=== PATIENT | female | born 1960 | race Caucasian/White ===

== ENCOUNTER → 2016-11-15 | Outpatient (CLI) | payer MEDICAID ==
[~2016-11-15] MED LIST: ALPR1TAB7; AMLO10TA2; BUDE10.2 IH; DEXL60CA; DEXL60CA PO; ESCI10TA55; HYDR-3729 PO; HYDR-3812 PO; HYDR-3820; HYDR25CA PO; POTA10CA43 PO; QUET100T69; ROPI1TAB2 PO; ROSU10TA24 PO; RT-ALBUINH IH; TRAZ100T92 PO; ZOLP10TA5
[2016-11-15 16:41] LABS: ALANINE AMINOTRANSFERASE 11 U/L (0-55); ALBUMIN 4.1 G/DL (3.2-4.5); ANION GAP 8 MMOL/L (5-14); ASPARTATE AMINO TRANSFERASE 14 U/L (5-34); BILIRUBIN,TOTAL 0.4 MG/DL (0.1-1.0); BLOOD UREA NITROGEN 7 MG/DL (7-18); BUN/CREATININE RATIO 10; CALCIUM 8.7 MG/DL (8.5-10.1); CARBON DIOXIDE 25 MMOL/L (21-32); CHLORIDE 107 MMOL/L (98-107); GFR ESTIMATED > 60; GLUCOSE 81 MG/DL (70-105); POTASSIUM 3.8 MMOL/L (3.6-5.0); SODIUM 140 MMOL/L (135-145); TOTAL PROTEIN 6.6 G/DL (6.4-8.2)
== END ==
LOC: LAB 16:01
PROVIDERS: ATTEND Family Medicine
DX: I10 Essential (primary) hypertension (principal); E03.9 Hypothyroidism, unspecified
CPT/HCPCS: 36415; 80053

== ENCOUNTER → 2016-11-22 | Outpatient (CLI) | payer MEDICAID ==
[~2016-11-22] MED LIST changes: +GADOBUTROL 7.5 MMOL/7.5 ML (GADAVIST) VIAL IV ONE
--- NOTE | 2016-11-22 15:20 | Diagnostic Imaging Report ---
PROCEDURE: MRI lumbar spine with and without contrast. TECHNIQUE: Multiplanar, multisequence MRI of the lumbar spine was performed with and without contrast. INDICATION: Patient has a history of ovarian and breast cancer, now with back pain and bilateral leg pain with numbness down to the toes. We have no previous studies for direct comparison. Exam can be interpreted in correlation with abdominal pelvic CT dated 07/08/2016. FINDINGS: Lumbar marrow signal intensity homogenous and normal and showed no abnormal enhancement following contrast administration. No findings at this study felt to be suggestive of lumbar spinal involvement by metastatic disease. No acute or suspicious epidural abnormality. No intrathecal pathology evident. The L2-L3 disc reveals slight desiccation, minimal stature loss and mild circumferential annular degenerative bulge without focal herniation. This results in no stenosis. The spinal canal at all vertebral body and disc space levels did not appear significantly narrowed. There is disc bulge eccentric to the left at the L5-S1 level resulting in a [id number] degree of left foraminal narrowing. The remaining neural foramen are widely patent. Pedicles and pars appeared intact. IMPRESSION: No findings of lumbar fracture, infection or metastatic disease, eccentric disc bulge L5-S1, stenosis of the left neural foramen. No substantial canal stenosis. Dictated by: Dictated on workstation # [id number]
--- NOTE | 2016-11-22 15:38 | Diagnostic Imaging Report ---
PROCEDURE: MRI pelvis with and without contrast. TECHNIQUE: Multiplanar, multisequence MRI of the pelvis was performed with and without contrast. INDICATION: Low back pain extending into legs. Previous history of ovarian and breast CA. FINDINGS: The hips show normal articulation of the femoral head with the acetabula bilaterally. Marrow signal is normal with no evidence of occult fractures or metastatic bony changes. The SI joints are symmetrical. The sacral ala shows edema along the anterolateral superior aspect on the right consistent with a small focal stress fracture. The uterus and ovaries appear absent. There are no pelvic masses demonstrated. Perirectal fat appears normal. No pelvic adenopathy. Bladder appears normal. The surrounding muscles of the pelvis are normal. Following IV contrast injection, there is no abnormal enhancement throughout the pelvis. IMPRESSION: 1. There is a small focal area of edema along the anterosuperior lateral aspect of the sacral ala on the right suggesting a small nondisplaced stress fracture. 2. No evidence of metastatic disease. 3. The hips appear normal. Dictated by: Dictated on workstation # [id number]
== END ==
LOC: RAD 12:57
PROVIDERS: ATTEND Family Medicine
DX: M51.26 Other intervertebral disc displacement, lumbar region (principal); Z85.41 Personal history of malignant neoplasm of cervix uteri
CPT/HCPCS: 72158; 72197

== ENCOUNTER 2017-05-28 18:26 | Observation (INO) | payer MEDICAID ==
[~2017-05-28] VITALS: Ht 162.6 cm; Wt 51.0 kg
[~2017-05-28 18:26] MED LIST changes: -GADOBUTROL 7.5 MMOL/7.5 ML (GADAVIST) VIAL IV ONE
[2017-05-28] MEDS ORDERED: LORazepam INJ 2 MG/ML (ATIVAN) VIAL ONE (18:31)
[2017-05-28] MEDS ORDERED: ONDANSETRON 4 MG/2 ML (SDV) Z0FRAN ONE (18:34)
--- NOTE | 2017-05-28 18:42 | Diagnostic Imaging Report ---
INDICATION: Patient found unresponsive. TECHNIQUE: Noncontrast brain CT is performed. FINDINGS: There were no extra-axial fluid collections. No intracranial hemorrhage. No intracranial mass or mass effect. No midline shift. The ventricles are normal in size and position. There were no focal parenchymal abnormalities in the brain. Calvarial windows were unremarkable. IMPRESSION: Negative noncontrast brain CT. Dictated by: Dictated on workstation # [id number]
--- NOTE | 2017-05-28 18:53 | Diagnostic Imaging Report ---
INDICATION: Unresponsive, history of seizure. TECHNIQUE: Frontal chest obtained at 6:45 p.m. FINDINGS: Heart and mediastinal silhouette are normal in appearance. There is a Port-A-Cath over left chest wall with tip overlying the SVC right atrial junction. There is no focal infiltrate or pneumothorax or pleural fluid. IMPRESSION: Port-A-Cath in place. No acute process in the chest. Dictated by: Dictated on workstation # [id number]
[2017-05-28 19:02] LABS: BASOPHILS % (AUTO) 0 % (0-10); EOSINOPHILS # (AUTO) 0.1 10^3/uL (0.0-0.3); EOSINOPHILS % (AUTO) 1 % (0-10); LYMPHOCYTES # (AUTO) 2.4 X 10^3 (1.0-4.0); LYMPHOCYTES % (AUTO) 30 % (12-44); MEAN CORPUSCULAR HEMOGLOBIN 32 PG (25-34); MEAN CORPUSCULAR HGB CONC 34 G/DL (32-36); MEAN CORPUSCULAR VOLUME 92 FL (80-99); MEAN PLATELET VOLUME 9.6 FL (7.4-10.4); MONOCYTES # (AUTO) 0.4 X 10^3 (0.0-1.0); MONOCYTES % (AUTO) 6 % (0-12); NEUTROPHILS % (AUTO) 63 % (42-75); PLATELET COUNT 244 10^3/uL (130-400); RED BLOOD COUNT 4.47 10^6/uL (4.35-5.85); RED CELL DISTRIBUTION WIDTH 13.3 % (10.0-14.5); WHITE BLOOD COUNT 7.9 10^3/uL (4.3-11.0)
--- NOTE | 2017-05-28 19:05 | ED Neurological Problem ---
General Chief Complaint: Neuro-Stroke Like Symptoms Stated Complaint: CHEST PAIN,SOA History of Present Illness Time seen by provider: 18:25 Initial Comments Patient presented via EMS at 1745 she called 911 was coherent and talking to the dispatcher. She reported chest pain and shortness of air. While talking to the dispatcher she became silent and EMS was sent to her residence. They found her unconscious lying on the floor. Vital signs remained stable during transport she was responsive at times to a sternal rub per EMS. She was found to have a subclavian port on the left chest wall which was accessed by EMS. No family or other people were found in the home, no past medical history could be obtained other than what is available in the EMR. She was unresponsive at time of admission and taken directly to radiology for CT head. Past hospitalizations include July 2016 for laparoscopic cholecystectomy by Dr. Rangel and January 2016 for flushing of her port. (IMAN SORTO) Allergies and Home Medications Allergies Coded Allergies: aspirin (Verified Allergy, Unknown, HIVES, 07/30/16) Home Medications Albuterol Sulfate 8.5 Gm Hfa.aer.ad, 2 PUFF IH QID PRN for SHORTNESS OF BREATH, (Reported) Budesonide/Formoterol Fumarate 10.2 Gm Hfa.aer.ad, 2 PUFF IH BID PRN for SHORTNESS OF BREATH, (Reported) Dexlansoprazole 60 Mg Macario., 60 MG PO DAILY, (Reported) Hydrocodone/Acetaminophen 1 Each Tablet, 1-2 TAB PO EVERY 4-6 HOURS PRN for PAIN, (Reported) Potassium Chloride 10 Meq Capsule.er, 10 MEQ PO BID WITH MEALS, (Reported) Ropinirole HCl 1 Mg Tablet, 2 MG PO HS, (Reported) TAKES 2 (1 MG) TABLETS Rosuvastatin Calcium 10 Mg Tablet, 10 MG PO HS, (Reported) Trazodone HCl 100 Mg Tablet, 100 MG PO HS, (Reported) Constitutional: no symptoms reported, see HPI Eyes: No Symptoms Reported, See HPI Ears, Nose, Mouth, Throat: no symptoms reported, see HPI Respiratory: see HPI, short of breath Cardiovascular: see HPI, chest pain (upon further questioning the pain is actually in the right upper quadrant of the abdomen and has been present since having her laparoscopic cholecystectomy in July 2016.) Gastrointestinal: RUQ, see HPI Genitourinary: no symptoms reported, see HPI, other (Guerrero catheter placed) Musculoskeletal: no symptoms reported, see HPI Skin: no symptoms reported, see HPI Psychiatric/Neurological: No Symptoms Reported, See HPI Endocrine: No Symptoms Reported, See HPI Hematologic/Lymphatic: No Symptoms Reported, See HPI (IMAN SORTO) All Other Systems Reviewed Negative Unless Noted: Yes (IMAN SORTO) Past Dwbkwqj-Ytymmd-Bwlqpr Hx Patient Social History Drug of Choice: MARIJUANA Type Used: Cigarettes Recent Hopitalizations: No (IMAN SORTO) Immunizations Up To Date Tetanus Booster (TDap): Unknown PED Vaccines UTD: Yes Date of Pneumonia Vaccine: Jul 27, 2006 (IMAN SORTO) Seasonal Allergies Seasonal Allergies: No (IMAN SORTO) Surgeries HX Surgeries: No (c/s x4, port, blood clot in left lung-stent placed, ) Surgeries: Hysterectomy (IMAN SORTO) Respiratory Hx Respiratory Disorders: Yes Respiratory Disorders: Pneumonia, Sleep Apnea, COPD (IMAN SORTO) Cardiovascular Hx Cardiac Disorders: Yes (CARDIAC STENTS ) Cardiac Disorders: Heart Murmur, Hypertension (IMAN SORTO) Neurological Hx Neurological Disorders: Yes Neurological Disorders: Headaches /Migraines, Seizure Disorder (IMAN SORTO) 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 System Hx 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 Disorders: Yes (hx of uterine and breast cancer) 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 (IMAN SORTO) Genitourinary Hx Genitourinary Disorders: No (IMAN SORTO) Gastrointestinal Hx Gastrointestinal Disorders: Yes (nausea, wt loss r/t cancer) Gastrointestinal Disorders: Gastroesophageal Reflux, Gall Bladder Disease (IMAN SORTO) Musculoskeletal Hx Musculoskeletal Disorders: Yes (muscle pain) Musculoskeletal Disorders: Osteoporosis (IMAN SORTO) Endocrine Hx Endocrine Disorders: No (IMAN SORTO) HEENT HX ENT Disorders: Yes HEENT Disorders: Cataract (IMAN SORTO) Cancer Hx Cancer: Yes Cancer: Breast, Ovarian, Uterine (IMAN SORTO) Psychosocial Hx Psychiatric Problems: No Behavioral Health Disorders: Sleep Difficulties, PTSD, Schizophrenia, Depression (IMAN SORTO) Integumentary HX Skin/Integumentary Disorder: No (IMAN SORTO) Blood Transfusions Hx Blood Disorders: Yes (hx of anemia) (IMAN SORTO) Reviewed Nursing Assessment Reviewed/Agree w Nursing PMH: Yes (NOREEN,IMAN GRAHAM) Family Medical History Significant Family History: No Pertinent Family Hx Family Medial History: Cardiovascular disease 19 FATHER 19 MOTHER Cataracts Completed stroke 19 FATHER 19 MOTHER G8 BROTHER (X3) Diabetes mellitus 19 FATHER 19 MOTHER G8 BROTHER BROTHER FH: breast cancer 19 MOTHER Hypertension 19 FATHER 19 MOTHER Myocardial infarction G8 BROTHER (IMAN SORTO) Family Medial History: Cardiovascular disease 19 FATHER 19 MOTHER Cataracts Completed stroke 19 FATHER 19 MOTHER G8 BROTHER (X3) Diabetes mellitus 19 FATHER 19 MOTHER G8 BROTHER BROTHER FH: breast cancer 19 MOTHER Hypertension 19 FATHER 19 MOTHER Myocardial infarction G8 BROTHER (VENKAT PEACOCK) Physical Exam Vital Signs Vital Sign - Last 12Hours 05/28/17 05/28/17 18:26 18:35 Temp 99.2 Pulse 78 Resp 18 B/P (MAP) 131/98 Pulse Ox 100 O2 Delivery Non Rebreather O2 Flow Rate 15.00 (VENKAT PEACOCK) Vital Signs Capillary Refill : (IMAN SORTO) General Appearance: WD/WN, no apparent distress HEENT: TMs normal, pharynx normal, other (gag reflex intact.) Neck: No carotid bruit, No lymphadenopathy (R), No lymphadenopathy (L) Respiratory: chest non-tender, lungs clear, normal breath sounds, no respiratory distress, no accessory muscle use Cardiovascular: normal peripheral pulses, regular rate, rhythm, systolic murmur Peripheral Pulses: 2+ Dorsalis Pedis (R), 2+ Left Dors-Pedis (L), 2+ Radial Pulses (R), 2+ Radial Pulses (L) Gastrointestinal: normal bowel sounds, non tender, soft, No distended, No guarding, No rebound, tenderness (subjective reports of tenderness in the right upper quadrant negative to palpation), other (scars from previous laparoscopic surgery present with no erythema.) Neurologic/Psychiatric: aphasia, facial droop (left facial droop, head deviated to the right.), motor weakness, sensory deficit Crainal Nerves: abnormal speech, facial asymmetry, facial droop Coordination/Gait: other (unable to perform any tests on initial presentation) Motor/Sensory: negative Babinski's sign Skin: normal color, warm/dry Lymphatic: no adenopathy Comments Initial evaluation the patient was unresponsive to verbal or tactile stimulation. (IMAN SORTO) Stroke NIH Stroke Scale Assessment Select: Initial Level of Consciousness: 3=NoResponse/Reflex motor Level of Consciousness-Questio: 2=Answer neither question LOC Commands: 2=Performs neither task Gaze: 2=Forced Deviation Visual Bass: 3=Bilateral Hemianopia Facial Movement (Facial Paresi: 3=Complete paralysis Motor Function-Arms Right: 4=No movement Motor Function-Arms Left: 4=No movement Motor Function-Legs Right: 4=No movement Motor Function-Legs Left: 4=No movement Limb Ataxia: 0=Absent Sensory: 1=Mild to Moderate loss Best Language: 3=Mute Dysarthria: 1=Mild to moderate loss Extinction & Inattention: 2=ProfoundHemiInattention NIH Stroke Scale Score: 38 (IMAN SORTO) Stroke Thrombolytic Exclusion Age 18 or Over: Yes Acute intenal hemorrhage: No History of CVA: No Uncontrolled Coagulation Defec: No Intracranial Hemorrhage: No Severe Hypertension: No GI or Bleed: No Subarachnoid Hemorrhage: No Intracranial Neoplasm/Aneurysm: No Oral Anticoagulants: No (IMAN SORTO) IV - TPa Received IV - TPa Procedure Performed?: No (CT negative and not indicated by stroke center, per phone conversation) (IMAN SORTO) Focused Exam Lactic Acid Level Laboratory Tests Test 05/28/17 18:40 Lactic Acid Level 0.93 MMOL/L (0.50-2.00) (VENKAT PEACOCK) Progress/Results/Core Measures Results/Orders Lab Results Laboratory Tests Test 05/28/17 18:34 05/28/17 18:40 05/28/17 18:49 Range/Units Glucometer 96 70-110 MG/DL White Blood Count 7.9 4.3-11.0 10^3/uL Red Blood Count 4.47 4.35-5.85 10^6/uL Hemoglobin 14.1 11.5-16.0 G/DL Hematocrit 41 35-52 % Mean Corpuscular Volume 92 80-99 FL Mean Corpuscular Hemoglobin 32 25-34 PG Mean Corpuscular Hemoglobin Concent 34 32-36 G/DL Red Cell Distribution Width 13.3 10.0-14.5 % Platelet Count 244 130-400 10^3/uL Mean Platelet Volume 9.6 7.4-10.4 FL Neutrophils (%) (Auto) 63 42-75 % Lymphocytes (%) (Auto) 30 12-44 % Monocytes (%) (Auto) 6 0-12 % Eosinophils (%) (Auto) 1 0-10 % Basophils (%) (Auto) 0 0-10 % Neutrophils # (Auto) 5.0 1.8-7.8 X 10^3 Lymphocytes # (Auto) 2.4 1.0-4.0 X 10^3 Monocytes # (Auto) 0.4 0.0-1.0 X 10^3 Eosinophils # (Auto) 0.1 0.0-0.3 10^3/uL Basophils # (Auto) 0.0 0.0-0.1 10^3/uL Prothrombin Time 14.4 12.2-14.7 SEC INR Comment 1.2 0.8-1.4 Activated Partial Thromboplast Time 55 H 24-35 SEC D-Dimer 0.28 0.00-0.49 UG/ML Sodium Level 138 135-145 MMOL/L Potassium Level 4.3 3.6-5.0 MMOL/L Chloride Level 105 98-107 MMOL/L Carbon Dioxide Level 23 21-32 MMOL/L Anion Gap 10 5-14 MMOL/L Blood Urea Nitrogen 6 L 7-18 MG/DL Creatinine 0.74 0.60-1.30 MG/DL Estimat Glomerular Filtration Rate > 60 BUN/Creatinine Ratio 8 Glucose Level 92 70-105 MG/DL Lactic Acid Level 0.93 0.50-2.00 MMOL/L Calcium Level 9.1 8.5-10.1 MG/DL Total Bilirubin 0.3 0.1-1.0 MG/DL Aspartate Amino Transf (AST/SGOT) 12 5-34 U/L Alanine Aminotransferase (ALT/SGPT) 9 0-55 U/L Alkaline Phosphatase 84 40-136 U/L Troponin I < 0.30 <0.30 NG/ML Total Protein 6.9 6.4-8.2 GM/DL Albumin 4.0 3.2-4.5 GM/DL Lipase 5 L 8-78 U/L Salicylates Level < 5.0 L 5.0-20.0 MG/DL Acetaminophen Level < 10 L 10-30 UG/ML Phenytoin (Dilantin) Level < 0.5 L 10.0-20.0 UG/ML Valproic Acid (Depakene) Level < 2.0 L 50.0-100.0 UG/ML Carbamazepine (Tegretol) Level < 2.0 L 4.0-12.0 UG/ML Serum Alcohol < 10 <10 MG/DL Urine Color YELLOW Urine Clarity SLIGHTLY CLOUDY Urine pH 6.5 5-9 Urine Specific [place] 1.010 L 1.016-1.022 Urine Protein NEGATIVE NEGATIVE Urine Glucose (UA) NEGATIVE NEGATIVE Urine Ketones NEGATIVE NEGATIVE Urine Nitrite NEGATIVE NEGATIVE Urine Bilirubin NEGATIVE NEGATIVE Urine Urobilinogen NORMAL NORMAL MG/DL Urine Leukocyte Esterase NEGATIVE NEGATIVE Urine RBC (Auto) NEGATIVE NEGATIVE Urine RBC NONE /HPF Urine WBC NONE /HPF Urine Squamous Epithelial Cells 2-5 /HPF Urine Crystals NONE /LPF Urine Bacteria NONE /HPF Urine Casts NONE /LPF Urine Mucus NEGATIVE /LPF Urine Culture Indicated NO Urine Opiates Screen NEGATIVE NEGATIVE Urine Oxycodone Screen POSITIVE H NEGATIVE Urine Methadone Screen NEGATIVE NEGATIVE Urine Propoxyphene Screen NEGATIVE NEGATIVE Urine Barbiturates Screen NEGATIVE NEGATIVE Ur Tricyclic Antidepressants Screen NEGATIVE NEGATIVE Urine Phencyclidine Screen NEGATIVE NEGATIVE Urine Amphetamines Screen NEGATIVE NEGATIVE Urine Methamphetamines Screen NEGATIVE NEGATIVE Urine Benzodiazepines Screen POSITIVE H NEGATIVE Urine Cocaine Screen NEGATIVE NEGATIVE Urine Cannabinoids Screen NEGATIVE NEGATIVE (VENKAT PEACOCK) My Orders Orders - VENKAT PEACOCK Cbc With Automated Diff (05/28/17 18:28) Protime With Inr (05/28/17 18:28) Partial Thromboplastin Time (05/28/17 18:28) Comprehensive Metabolic Panel (05/28/17 18:28) Fibrin Degradation Products (05/28/17 18:28) Troponin I (05/28/17 18:28) Ua Culture If Indicated (05/28/17 18:28) Chest 1 View, Ap/Pa Only (05/28/17 18:28) Catheter(Urinary) Insert & Ass 03,15 (05/28/17 18:28) Ekg Tracing (05/28/17 18:28) Accucheck Stat ONCE (05/28/17 18:28) Saline Lock/Iv-Start (05/28/17 18:28) Saline Lock/Iv-Start (05/28/17 18:28) Vital Signs - Stroke Q15M (05/28/17 18:28) Ct Head Wo-R/O Stroke (05/28/17 18:28) O2 (05/28/17 18:28) Intake & Output 06,14,22 (05/28/17 18:28) Monitor-Rhythm Ecg Trace Only (05/28/17 18:28) Dysphagia Screening Tool (05/28/17 18:28) Post Thrombolytic Adminstratio (05/28/17 18:28) Lorazepam Injection (Ativan Injection) (05/28/17 18:31) Ondansetron Injection (Zofran Injectio (05/28/17 18:34) Phenytoin (Dilantin) (05/28/17 18:59) Valproic Acid (05/28/17 18:59) Carbamazepine (Tegretol) (05/28/17 18:59) Fentanyl Injection (Sublimaze Injection (05/28/17 19:15) Ondansetron Injection (Zofran Injectio (05/28/17 19:15) Ns Iv 1000 Ml (Sodium Chloride 0.9%) (05/28/17 19:28) Lipase (05/28/17 19:43) Ct Abdomen/Pelvis Wo (05/28/17 19:44) (VENKAT PEACOCK) Medications Given in ED Current Medications Medications Dose Ordered Sig/Matt Route Start Time Stop Time Status Last Admin Dose Admin Fentanyl Citrate 25 mcg ONCE ONCE IVP 05/28/17 19:15 05/28/17 19:16 DC 05/28/17 19:17 25 MCG Iohexol 100 ml ONCE ONCE IV 05/28/17 19:45 05/28/17 19:46 DC 05/28/17 19:57 85 ML Lorazepam 2 mg STK-MED ONCE .ROUTE 05/28/17 18:31 05/28/17 18:38 DC 05/28/17 18:44 2 MG Ondansetron HCl 4 mg STK-MED ONCE .ROUTE 05/28/17 18:34 05/28/17 18:40 DC 05/28/17 18:40 4 MG Sodium Chloride 100 ml ONCE ONCE IV 05/28/17 19:45 05/28/17 19:46 DC 05/28/17 19:57 80 ML Sodium Chloride 1,000 ml @ ud STK-MED ONCE .ROUTE 05/28/17 19:28 8/2/17 19:35 DC 05/28/17 19:36 1,000 MLS/HR (VENKAT PEACOCK) Vital Signs/I&O Vital Sign - Last 12Hours 05/28/17 05/28/17 18:26 18:35 Temp 99.2 Pulse 78 Resp 18 B/P (MAP) 131/98 Pulse Ox 100 100 O2 Delivery Non Rebreather Non Rebreather O2 Flow Rate 15.00 (VENKAT PEACOCK) Progress Note : Time: 18:25 Progress Note Initial evaluation completed by Dr. Basilio and myself, patient taken directly to radiology for CT head. Immediately after the CT the patient had a seizure that lasted approximately 5 seconds. She was kept on her side with oxygen administered and suction on standby. She continued to be unresponsive. CT initial readings by myself and Dr. Sykes negative. She return to the emergency department. Lorazepam 2 mg IV. 1839 the patient had a another seizure with a spine myself and Dr. Peacock that lasted approximately 10 seconds. Patient slightly more alert after the seizure, opens eyes to verbal and tactile stimulus. Answered simple yes no questions appropriately. Complains of nausea. Zofran 4 mg IV. [address] Cai, she consulted with records from [facility]. They have not seen the patient since March 2016. Past medical history was reviewed. Patient more alert and reports that her pain is not in the chest but on the right upper quadrant of the abdomen. She reports this pain has been present since her laparoscopic cholecystectomy. She did not follow-up with Dr. Rangel as recommended. She sees Dr. Saldivar in [facility] for her medical management at the present time. She has been to [facility] in the past and was treated by Dr. Brooks. She reports she has taken Dilantin and phenobarbital for her seizure disorder in the past she is not currently taking anything for it. [address] Hidalgo with [facility], reviewed patient's assessment, laboratory and diagnostic workup to this point that is available. He recommended CT angiography of the head and neck. Based on the findings he felt that it was probably metabolic induced, post ictal state, or drug induced. No additional treatment recommendations at this point. If CT angiography shows any additional findings will contact him further. 1929 patient's is present in the exam room. He reports last seeing her at 0715 this morning prior to him going to work. She was moving about in the house and had no complaints at that time. Discussed plans with the patient for admission for further workup and evaluation by Dr. Rangel for her continued abdominal pain. Will obtain a CT angiography of the head and neck, and a CT abdomen and pelvis. 2014 all studies negative for acute changes, discussed with the patient and her spouse. She agreed with recommendations for admission. Discussed patient and full workup with Dr. Cai, agreed with plans for admission for observation. (IMAN SORTO) Progress Note : Time: 23:08 Progress Note I saw and examined the patient alongside Ms. Sorto and I agree with the findings , summarization, evaluation, assessment, plan and disposition. (VENKAT PEACOCK) ECG Initial ECG Impression Date: May 28, 2017 Initial ECG Impression Time: 18:50 Initial ECG Rate: 76 Initial ECG Rhythm: Normal Sinus Initial ECG Intervals: Normal Initial ECG Intervals MT 164, QRS T 76, QT 380, QTc 428. [place] P 53, QRS 44, T 43. Initial ECG Impression: Normal Initial ECG Comparisson: No Previous ECG Available Comment Reviewed with Dr. Peacock agreed with interpretation. (IMAN SORTO) Diagnostic Imaging Diagonstic Imaging: CT Plain Films/CT/US/NM/MRI: head Comments NAME: HELDER RHODES [facility] REC#: [id number] PT STATUS: REG ER : 1960 PHYSICIAN: VENKAT PEACOCK MD ADMIT DATE: 05/28/17/ER Draft Date of Exam:05/28/17 CT HEAD WO-R/O STROKE INDICATION: Patient found unresponsive. TECHNIQUE: Noncontrast brain CT is performed. FINDINGS: There were no extra-axial fluid collections. No intracranial hemorrhage. No intracranial mass or mass effect. No midline shift. The ventricles are normal in size and position. There were no focal parenchymal abnormalities in the brain. Calvarial windows were unremarkable. IMPRESSION: Negative noncontrast brain CT. Dictated on workstation # [id number] Dict: 05/28/17 1839 Trans: 05/28/17 1842 AS6 [id number] Interpreted by: WOLF PASCUAL MD Electronically signed by: Reviewed: Reviewed by Me, Reviewed/Discussed (with Dr. Peacock, agreed with interpretation.) Diagonstic Imaging: Xray Plain Films/CT/US/NM/MRI: chest Comments NAME: HELDER RHODES [facility] REC#: [id number] PT STATUS: REG ER : 1960 PHYSICIAN: VENKAT PEACOCK MD ADMIT DATE: 05/28/17/ER Draft Date of Exam:05/28/17 CHEST 1 VIEW, AP/PA ONLY INDICATION: Unresponsive, history of seizure. TECHNIQUE: Frontal chest obtained at 6:45 p.m. FINDINGS: Heart and mediastinal silhouette are normal in appearance. There is a Port-A-Cath over left chest wall with tip overlying the SVC right atrial junction. There is no focal infiltrate or pneumothorax or pleural fluid. IMPRESSION: Port-A-Cath in place. No acute process in the chest. Dictated on workstation # [id number] Dict: 05/28/171849 Trans: 05/28/171851 [id number] Interpreted by: WOLF PASCUAL MD Electronically signed by: Reviewed: Reviewed by Me, Reviewed/Discussed (with Dr. Peacock, agreed with interpretation.) Diagonstic Imaging: CT (angiography) Plain Films/CT/US/NM/MRI: head (and neck) Comments NAME: HELDER RHODES [facility] REC#: [id number] PT STATUS: REG ER : 1960 PHYSICIAN: IMAN SORTO ADMIT DATE: 05/28/17/ER Draft Date of Exam:05/28/17 CT ANGIO HEAD/NECK INDICATION: Patient found unresponsive, history of seizures. EXAMINATION: CT neck and CT head were obtained with axial slices, with IV contrast bolus, and sagittal, coronal and MIP reconstructions. CTA NECK FINDINGS: Aortic arch is patent and normal in caliber. The great vessel origins appear patent. The common carotid arteries, carotid bifurcations, internal carotid arteries and external carotids in the neck are patent and unremarkable. The vertebral arteries on both sides are patent with the left being dominant and the right being fairly small on a congenital basis. There is a Port-A-Cath over the left chest wall. There is no adenopathy in the neck soft tissues. CTA HEAD FINDINGS: The distal vertebral arteries, basilar artery and posterior cerebral arteries are patent and unremarkable. The distal internal carotid arteries, anterior cerebral arteries and middle tube cerebral are patent. There is no major vessel stenosis or occlusion or aneurysmal disease. Patency of the dural venous sinuses is demonstrated. Postcontrast images show no enhancing intracranial lesion. IMPRESSION: Negative CTA of the head and neck. No major vessel stenosis, occlusion or aneurysmal disease. Dictated on workstation # [id number] Dict: 05/28/172024 Trans: 05/28/172031 [facility] [id number] Interpreted by: WOLF PASCUAL MD Electronically signed by: Reviewed: Reviewed by Me, Reviewed/Discussed (with Dr. Paecock, agreed with interpretation) Diagonstic Imaging: CT Plain Films/CT/US/NM/MRI: abdomen, pelvis Comments NAME: HELDER RHODES [facility] REC#: [id number] PT STATUS: REG ER : 1960 PHYSICIAN: VENKAT PEACOCK MD ADMIT DATE: 05/28/17/ER Draft Date of Exam:05/28/17 CT ABDOMEN/PELVIS WO INDICATION: Right upper quadrant abdominal pain CT of the abdomen and pelvis obtained without IV contrast. Comparison made to 07/08/16. The visualized portions of the lung bases show dependent atelectatic changes but no infiltrate or pleural fluid. There is no free intraperitoneal air. The liver shows no focal lesion without contrast. Gallbladder is absent. Spleen, adrenals, and pancreas appear unremarkable. Kidneys bilaterally show no radiopaque calculi or hydronephrosis, there is a 4 cm cyst in the lower pole of the left kidney which is unchanged compared to the prior study. There is no retroperitoneal mass or adenopathy. There is no ascites or abnormal fluid collection. Visualized bowel loops appear unremarkable. There is a Guerrero catheter in the bladder. The appendix is not definitively seen but there is no inflammatory reaction in its expected location. IMPRESSION: Gallbladder is absent. There is no abdominal or pelvic mass or focal inflammatory process. There is a stable cyst in the lower pole of the left kidney. There is no acute abnormality. A Guerrero catheter is present in the bladder. Dictated on workstation # [id number] Dict: 05/28/172027 Trans: 05/28/172036 [facility] [id number] Interpreted by: WOLF PASCUAL MD Electronically signed by: Reviewed: Reviewed by Me, Reviewed/Discussed (with Dr. Peacock, who agreed with interpretation) (IMAN SORTO) Departure Impression Impression: Primary Impression: Abdominal pain Qualified Codes: R10.11 - Right upper quadrant pain Additional Impression: Neurological deficit, transient Disposition: ADMITTED INPATIENT Condition: Improved Decision to Admit Reason: Admit from ER (Trauma) Decision to Admit/Date: May 28, 2017 Time/Decision to Admit Time: 20:15 (IMAN SORTO) Departure-Patient Inst. Referrals: MONICA SALDIVAR DO (PCP/Family) Primary Care Physician Copy Copies To 1: CALVIN CAI MD Copies To 2: ANN RANGEL MD, AMY ARNP May 28, 2017 19:05 VENKAT PEACOCK May 28, 2017 23:10
[2017-05-28] MEDS ORDERED: fentaNYL INJECTION 100 MCG/2 ML AMP IVP ONE (19:15)
[2017-05-28] MEDS ORDERED: ONDANSETRON 4 MG/2 ML (SDV) Z0FRAN IVP ONE (19:15)
[2017-05-28 19:19] LABS: INR 1.2 (0.8-1.4); PROTHROMBIN TIME PATIENT 14.4 SEC (12.2-14.7)
[2017-05-28] MEDS ORDERED: NS IV 1000 ML 1,000 ML ONE ×2 (19:28→21:11)
[2017-05-28 19:29] LABS: ACETAMINOPHEN < 10 UG/ML (10-30); ALANINE AMINOTRANSFERASE 9 U/L (0-55); ALCOHOL < 10 MG/DL (<10); ANION GAP 10 MMOL/L (5-14); ASPARTATE AMINO TRANSFERASE 12 U/L (5-34); BILIRUBIN,TOTAL 0.3 MG/DL (0.1-1.0); BLOOD UREA NITROGEN 6 MG/DL (7-18); CALCIUM 9.1 MG/DL (8.5-10.1); CARBON DIOXIDE 23 MMOL/L (21-32); CHLORIDE 105 MMOL/L (98-107); GLUCOSE 92 MG/DL (70-105); POTASSIUM 4.3 MMOL/L (3.6-5.0); SALICYLATE < 5.0 MG/DL (5.0-20.0); SODIUM 138 MMOL/L (135-145); TOTAL PROTEIN 6.9 GM/DL (6.4-8.2)
[2017-05-28 19:29] LABS: BILIRUBIN,URINE NEGATIVE (NEGATIVE); KETONES,URINE NEGATIVE (NEGATIVE); LEUKOCYTE ESTERASE ,URINE NEGATIVE (NEGATIVE); NITRITE,URINE NEGATIVE (NEGATIVE); PH,URINE 6.5 (5-9); PROTEIN,URINE NEGATIVE (NEGATIVE); UROBILINOGEN,URINE NORMAL (NORMAL)
[2017-05-28 19:40] LABS: BUN/CREATININE RATIO 8; CREATININE SERUM 0.74 MG/DL (0.60-1.30); GFR ESTIMATED > 60
[2017-05-28 19:41] LABS: TROPONIN I < 0.30 NG/ML (<0.30)
[2017-05-28 19:42] LABS: CARBAMAZEPINE (TEGRETOL) < 2.0 UG/ML (4.0-12.0); VALPROIC ACID < 2.0 UG/ML (50.0-100.0)
[2017-05-28] MEDS ORDERED: IOHEXOL 350 MG/ML 100 ML (OMNIPAQUE 350) VIAL IV ONE (19:45)
[2017-05-28] MEDS ORDERED: NS 100 ML (IVPB) BAG IV ONE (19:45)
--- NOTE | 2017-05-28 20:33 | Diagnostic Imaging Report ---
INDICATION: Patient found unresponsive, history of seizures. EXAMINATION: CT neck and CT head were obtained with axial slices, with IV contrast bolus, and sagittal, coronal and MIP reconstructions. CTA NECK FINDINGS: Aortic arch is patent and normal in caliber. The great vessel origins appear patent. The common carotid arteries, carotid bifurcations, internal carotid arteries and external carotids in the neck are patent and unremarkable. The vertebral arteries on both sides are patent with the left being dominant and the right being fairly small on a congenital basis. There is a Port-A-Cath over the left chest wall. There is no adenopathy in the neck soft tissues. CTA HEAD FINDINGS: The distal vertebral arteries, basilar artery and posterior cerebral arteries are patent and unremarkable. The distal internal carotid arteries, anterior cerebral arteries and middle tube cerebral are patent. There is no major vessel stenosis or occlusion or aneurysmal disease. Patency of the dural venous sinuses is demonstrated. Postcontrast images show no enhancing intracranial lesion. IMPRESSION: Negative CTA of the head and neck. No major vessel stenosis, occlusion or aneurysmal disease. Dictated by: Dictated on workstation # [id number]
--- NOTE | 2017-05-28 20:37 | Diagnostic Imaging Report ---
INDICATION: Right upper quadrant abdominal pain CT of the abdomen and pelvis obtained without IV contrast. Comparison made to 07/08/16. The visualized portions of the lung bases show dependent atelectatic changes but no infiltrate or pleural fluid. There is no free intraperitoneal air. The liver shows no focal lesion without contrast. Gallbladder is absent. Spleen, adrenals, and pancreas appear unremarkable. Kidneys bilaterally show no radiopaque calculi or hydronephrosis, there is a 4 cm cyst in the lower pole of the left kidney which is unchanged compared to the prior study. There is no retroperitoneal mass or adenopathy. There is no ascites or abnormal fluid collection. Visualized bowel loops appear unremarkable. There is a Guerrero catheter in the bladder. The appendix is not definitively seen but there is no inflammatory reaction in its expected location. IMPRESSION: Gallbladder is absent. There is no abdominal or pelvic mass or focal inflammatory process. There is a stable cyst in the lower pole of the left kidney. There is no acute abnormality. A Guerrero catheter is present in the bladder. Dictated by: Dictated on workstation # [id number]
[2017-05-28 21:15] VITALS: BP 128/78
[2017-05-28] MEDS ORDERED: ACETAMINOPHEN 325 MG TABLET/CAPLET (TYLENOL) ONE (21:45)
[2017-05-28] MEDS: ACETAMINOPHEN 325 MG TABLET/CAPLET (TYLENOL) PO PRN (21:55)
[2017-05-28 22:51] VITALS: BP 128/78
[2017-05-28] MEDS ORDERED: RT-ALBUTEROL SULF 2.5 MG/3 ML PRE-MIX VIAL IH PRN (23:00)
[2017-05-28] MEDS ORDERED: ONDANSETRON 4 MG/2 ML (SDV) Z0FRAN IV PRN (23:30)
[2017-05-28] MEDS ORDERED: NS IV 1000 ML 1,000 ML IV SCH (23:45)
[2017-05-29] VITALS: BP 100/53
[2017-05-29 04:00] VITALS: BP 104/55
[2017-05-29] MEDS ORDERED: LORazepam INJ 2 MG/ML (ATIVAN) VIAL ONE (05:26)
[2017-05-29] MEDS ORDERED: LEVETIRACETAM 500 MG (KEPPRA) TAB PO ONE (05:45)
[2017-05-29 05:46] LABS: BASOPHILS % (AUTO) 1 % (0-10); EOSINOPHILS # (AUTO) 0.1 10^3/uL (0.0-0.3); EOSINOPHILS % (AUTO) 1 % (0-10); LYMPHOCYTES # (AUTO) 2.3 X 10^3 (1.0-4.0); LYMPHOCYTES % (AUTO) 34 % (12-44); MEAN CORPUSCULAR HEMOGLOBIN 31 PG (25-34); MEAN CORPUSCULAR HGB CONC 34 G/DL (32-36); MEAN CORPUSCULAR VOLUME 93 FL (80-99); MEAN PLATELET VOLUME 9.3 FL (7.4-10.4); MONOCYTES # (AUTO) 0.5 X 10^3 (0.0-1.0); MONOCYTES % (AUTO) 7 % (0-12); NEUTROPHILS # (AUTO) 3.9 X 10^3 (1.8-7.8); NEUTROPHILS % (AUTO) 57 % (42-75); PLATELET COUNT 244 10^3/uL (130-400); RED BLOOD COUNT 3.95 10^6/uL (4.35-5.85); RED CELL DISTRIBUTION WIDTH 13.3 % (10.0-14.5); WHITE BLOOD COUNT 6.7 10^3/uL (4.3-11.0)
[2017-05-29 06:12] LABS: ALANINE AMINOTRANSFERASE 7 U/L (0-55); ALBUMIN 3.1 GM/DL (3.2-4.5); ANION GAP 7 MMOL/L (5-14); ASPARTATE AMINO TRANSFERASE 9 U/L (5-34); BILIRUBIN,TOTAL 0.4 MG/DL (0.1-1.0); BLOOD UREA NITROGEN 7 MG/DL (7-18); BUN/CREATININE RATIO 11; CALCIUM 7.8 MG/DL (8.5-10.1); CARBON DIOXIDE 21 MMOL/L (21-32); CHLORIDE 113 MMOL/L (98-107); CREATININE SERUM 0.63 MG/DL (0.60-1.30); GFR ESTIMATED > 60; GLUCOSE 76 MG/DL (70-105); SODIUM 141 MMOL/L (135-145); TOTAL PROTEIN 5.4 GM/DL (6.4-8.2)
[2017-05-29 06:17] LABS: TROPONIN I < 0.30 NG/ML (<0.30)
[2017-05-29 08:00] VITALS: BP 108/58
[2017-05-29] MEDS ORDERED: MAGNESIUM CITRATE 300 ML BTL PO NR (08:00)
[2017-05-29] MEDS ORDERED: RT-ALBUTEROL SULF 2.5 MG/3 ML PRE-MIX VIAL IH SCH (08:00)
[2017-05-29] MEDS ORDERED: RT-ADVAIR HFA 115/21 MCG PER PUFF IH SCH (08:00)
[2017-05-29] MEDS ORDERED: IPRA0.2S51 NEB (08:24)
[2017-05-29] MEDS ORDERED: CETI10TA17 PO (08:24)
[2017-05-29] MEDS ORDERED: OXYC10TA7 PO (08:24)
[2017-05-29] MEDS ORDERED: ALPR1TAB7 PO (08:24)
[2017-05-29] MEDS ORDERED: QUET100T69 PO (08:24)
[2017-05-29] MEDS ORDERED: AMLO10TA2 PO (08:24)
[2017-05-29] MEDS ORDERED: ROPI3TAB2 PO (08:24)
[2017-05-29] MEDS ORDERED: DESV100T16 PO (08:24)
[2017-05-29] MEDS ORDERED: ZOLP10TA5 PO (08:24)
[2017-05-29] MEDS ORDERED: POTA10TA10 PO (08:24)
[2017-05-29] MEDS ORDERED: ONDA8TAB12 PO (08:24)
[2017-05-29] MEDS ORDERED: RT-ALBUINH INH (08:24)
[2017-05-29] MEDS ORDERED: LEVETIRACETAM 500 MG (KEPPRA) TAB PO SCH (09:00)
--- NOTE | 2017-05-29 09:23 | Physical Therapy Progress Note ---
Therapy Progress Note Patient had a rough night per spouse and had received Ativan this a.m. per RN. Patient is asleep and spouse request PT return later in the day. PT will assess in p.m. 1 visit JOHN ZABALA PT May 29, 2017 09:23
[2017-05-29] MEDS: ACETAMINOPHEN 325 MG TABLET/CAPLET (TYLENOL) PO PRN (09:49)
--- NOTE | 2017-05-29 10:00 | Physical Therapy Evaluation ---
PT Evaluation-General Medical Diagnosis Admission Date May 28, 2017 at 21:00 Medical Diagnosis: acute neurological change Onset Date: May 28, 2017 Therapy Diagnosis Therapy Diagnosis: debility Height/Weight Height (Feet): 5 Height (Inches): 4.00 Weight (Pounds): 112 Weight (Ounces): 8.0 Precautions Precautions/Isolations: Fall Prevention, Standard Precautions Referral Physician: Prieto Reason for Referral: Evaluation/Treatment Medical History Pertinent Medical History: COPD, GERD, HTN Additional Medical History PTSD;Schizophrenia Current History patient called EMS with c/o CP and SOB and then went unresponsive Seizure activity Social History Home: Apartment Current Living Status: Spouse Entry Into Home: Level Entry Prior/Core FIM Prior Level of Function Functional [place] Measure 0=Not Assessed/NA 4=Minimal Assistance 1=Total Assistance 5=Supervision or Setup 2=Maximal Assistance 6=Modified [place] 3=Moderate Assistance 7=Complete [place] Bed Mobility: 6 Transfers (B,C,W/C) (FIM): 6 Gait: 6 utilizes FWW at home PT Evaluation-Current Subjective Patient is nonverbal at this time. Agrees to PT. Pain Numeric Pain Scale: 5-Moderate Pain Location: Lower Location Body Site: Back Pain Description: Ache Comment: FLACC Objective Patient Orientation: Unable to Assess, Non-Verbal/Aphasic Problem Solving: Fair Attachments: Guerrero Catheter ROM/Strength ROM Lower Extremities bilateral LE WNL Strenght Lower Extremities bilateral LE WNL Integumentary/Posture Integumentary refer to nursing notes Bladder Incontinence: Guerrero Cath Posture WNL Neuromuscular (Tone, Coordination, Reflexes) noted tremors total body Sensory Vision: Functional Hearing: Functional Sensation Right Lower Extremit: Intact Sensation Left Lower Extremity: Intact Transfers Functional [place] Measure 0=Not Assessed/NA 4=Minimal Assistance 1=Total Assistance 5=Supervision or Setup 2=Maximal Assistance 6=Modified [place] 3=Moderate Assistance 7=Complete [place] Transfers (B, C, W/C) (FIM): 4 Scootin Rollin Supine to/from Sit: 5 Sit to/from Stand: 4 Gait Mode of Locomotion: Walk Anticipated Mode of Locomotion: Walk Gait (FIM): 1 Distance (FIM): 1=up to 49 ft Distance: 10' Gait Level of Assist: 4 Gait Persons Needed: 1 Gait Assistive Device: FWW Comments/Gait Description ataxic Balance Sitting Static: Normal Sitting Dynamic: Normal Standing Static: Fair Standing Dynamic: Fair Assessment/Needs 57 y.o. female, will benefit from short term skilled PT to address functional mobility to ensure safe return to home with spouse at maximum LOF. Rehab Potential: Fair PT Shelter Goals Pantograph I Engraver Goals PT Shelter Goals Time Frame: Jun 05, 2017 Transfers (B,C,W/C) (FIM): 5 Gait (FIM): 5 Gait distance (FIM): 3=150 ft Distance: 150' Gait Level of Assist: 5 Gait Assistive Device: FWW PT Plan Problem List Problem List: Activity Tolerance, Functional Strength, Safety, Balance, Gait, Transfer Treatment/Plan Treatment Plan: Continue Plan of Care Treatment Plan: Bed Mobility, Education, Functional Activity Chasity, Functional Strength, Gait, Safety, Therapeutic Exercise, Transfers Treatment Duration: Jun 05, 2017 Frequency: Daily Estimated Hrs Per Day: .25 hour per day Patient and/or Family Agrees t: Yes Discharge Recommendations Therapy D/C Recommendations: Home w/ Family Support Time/GCodes Time In: 935 Time Out: 950 Total Billed Treatment Time: 15 Total Billed Treatment 1 visit [facility] 15 min G Codes Necessary: JOHN Benedict PT May 29, 2017 10:00
--- NOTE | 2017-05-29 10:20 | History & Physical-Hospitalist ---
HPI History of Present Illness: HPI/Chief Complaint CC: Stoke like symptoms HPI: This is a 57 yoWF former pt of [facility] with multiple psych issues who presented to ER with above. No evidence of stroke. Pt continues to exhibit psychiatric abnormalities. Vitals stable. CBC and CMP all with in normal limits. Dr. Moreau Review: Pt was evaluated because she was a former [facility] pt, but went back to her old PCP, Dr. Saldivar in [place] Pt would not talk, but confirmed that she does speak normally medical nurse: Pt is still sleepy Given Ativan this am. Pt has Seizure disorder, Schizophrenia, and PTSD. No evidence of stroke Pt goes by [facility] Patient Interview: Pt was not verbal. The following interview was conducted with pt's . PCP confirmed as Dr. Saldivar in [place] but she lives in [place] Pt was informed that there was no evidence of stroke Catheter removal discussed Pt's informed me that the pharmacy took a list of her meds. I will look over these today. Physical exam stable. Pt was able to sit up well. Pt's confirms her smoking Pt's states that pt only takes prescribed meds PT was working with pt during interview Scribed by Myah Yeung under the direct supervision of Dr. Bell. After rounds the nurse reported that her symptoms completely resolved and she demanded to go home so discharge orders were placed Source: patient, family Exam Limitations: language barrier Date Seen 05/29/17 Time Seen by Provider: 10:00 Attending Physician Hanna Moreau MD PCP Alfredo Saldivar DO Referring Physician Date of Admission May 28, 2017 at 21:00 Home Medications & Allergies Home Medications Reviewed patient Home Medication Reconciliation Form Allergies Allergies Coded Allergies aspirin (Verified Allergy, Unknown, HIVES, 07/30/16) Past Cffotig-Zajklu-Axmugv Hx Patient Social History Marrital Status: cohabiting Employed/Student: unemployed Alcohol Use: Denies Use Recreational Drug Use: Yes Drug of Choice: MARIJUANA Smoking Status: Current Everyday Smoker Type Used: Cigarettes Physical Abuse Screen: No Sexual Abuse: No Recent Foreign Travel: No Contact w/other who traveled: No Recent Hopitalizations: No Recent Infectious Disease Expo: No Immunizations Up To Date Tetanus Booster (TDap): Unknown Date of Pneumonia Vaccine: Jul 27, 2006 Seasonal Allergies Seasonal Allergies: No Surgeries HX Surgeries: Yes (c/s x4, port, blood clot in left lung-stent placed, ) Surgeries: Hysterectomy Respiratory Hx Respiratory Disorders: Yes Respiratory Disorders: COPD Cardiovascular Hx Cardiovascular Disorders: Yes (CARDIAC STENTS ) Cardiac Disorders: Heart Murmur, Hypertension Neurological Hx Neurological Disorders: Yes Neurological Disorders: Headaches /Migraines, Seizure Disorder 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 System : No Hx 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 Disorders: Yes (hx of uterine and breast cancer) Genitourinary Hx Genitourinary Disorders: No Gastrointestinal Hx Gastrointestinal Disorders: Yes (nausea, wt loss r/t cancer) Gastrointestinal Disorders: Gastroesophageal Reflux, Chronic Constipation, Gall Bladder Disease Musculoskeletal Hx Musculoskeletal Disorders: Yes (muscle pain) Musculoskeletal Disorders: Osteoporosis Endocrine Hx Endocrine Disorders: No HEENT HX ENT Disorders: Yes HEENT Disorders: Cataract Cancer Hx Cancer: Yes Cancer: Breast, Ovarian, Uterine Psychosocial Hx Psychiatric Problems: No Behavioral Health Disorders: Sleep Difficulties, PTSD, Schizophrenia, Depression Integumentary HX Skin/Integumentary Disorder: No Blood Transfusions Hx Blood Disorders: Yes (hx of anemia) Adverse Reaction to a Blood Tr: No Reviewed Nursing Assessment Reviewed/Agree w Nursing PMH: Yes Family Medical History Significant Family History: No Pertinent Family Hx Family Hx: Cardiovascular disease 19 FATHER 19 MOTHER Cataracts Completed stroke 19 FATHER 19 MOTHER G8 BROTHER (X3) Diabetes mellitus 19 FATHER 19 MOTHER G8 BROTHER BROTHER FH: breast cancer 19 MOTHER Hypertension 19 FATHER 19 MOTHER Myocardial infarction G8 BROTHER Review of Systems Constitutional: see HPI, weakness EENTM: no symptoms reported Respiratory: no symptoms reported Cardiovascular: no symptoms reported Gastrointestinal: no symptoms reported Genitourinary: no symptoms reported Musculoskeletal: no symptoms reported Skin: no symptoms reported Psychiatric/Neurological: No Symptoms Reported All Other Systems Reviewed Negative Unless Noted: Yes Physical Exam Physical Exam Vital Signs Vital Sign - Last 12Hours 05/28/17 05/28/17 05/28/17 18:26 18:35 22:51 Temp 99.2 Pulse 78 Resp 18 B/P (MAP) 131/98 Pulse Ox 100 O2 Delivery Non Rebreather O2 Flow Rate 15.00 FiO2 21 Capillary Refill : Less Than 3 Seconds General Appearance: No Apparent Distress, WD/WN, Chronically ill Eyes: Bilateral Eye Normal Inspection, Bilateral Eye PERRL HEENT: PERRL/EOMI, Normal ENT Inspection, Pharynx Normal Neck: Full Range of Motion, Normal Inspection, Non Tender, Supple, Carotid Bruit Respiratory: Chest Non Tender, Lungs Clear, No Accessory Muscle Use, No Respiratory Distress, Decreased Breath Sounds Cardiovascular: Regular Rate, Rhythm, No Edema, No Gallop, No JVD, No Murmur, Normal Peripheral Pulses Gastrointestinal: Normal Bowel Sounds, No Organomegaly, No Pulsatile Mass, Non Tender, Soft Back: Normal Inspection, No CVA Tenderness, No Vertebral Tenderness Extremity: Normal Capillary Refill, Normal Inspection, Normal Range of Motion, Non Tender, No Calf Tenderness, No Pedal Edema Neurologic/Psychiatric: Alert, Oriented x3, No Motor/Sensory Deficits, Normal Mood/Affect, Other (no motor weakness noted on exam bilateral) Skin: Normal Color, Warm/Dry Lymphatic: No Adenopathy Results Results/Procedures Lab Laboratory Tests 05/28/17 18:40 05/29/17 05:36 Assessment/Plan Admission Diagnosis Assessment: Unilateral weakness of unknown etiology resolve spontaneously and all workup negative for stroke Seizure disorder with seizure episode last night requiring Ativan Chronic tremor Smoker Long-standing mental illness Assessment and Plan Plan: PT MRI this am was cancelled since after rounds her symptoms resolved and she was demanding to go home Speech eval/bedside evaluation was ordered but she refused restart all home meds Clinical Quality Measures DVT/VTE Risk/Contraindication: Risk Factor Score Per Nursin RFS Level Per Nursing on Admit: 4+=Very High GABRIELA BELL DO May 29, 2017 10:19
--- NOTE | 2017-05-29 10:34 | ST Dysphagia Evaluation ---
Speech Evaluation-General Medical Diagnosis Acute Neurological Change Onset Date: May 28, 2017 Therapy Diagnosis Therapy Diagnosis: Oropharyngeal Swallow WFL Precautions Precautions/Isolations: Fall Prevention, Standard Precautions Referral Referring Physician: Dr. Latoya Burgess Reason for Referral: Evaluation/Treatment Bedside Swallowing Evaluation Medical History Pertinent Medical History: COPD, GERD, HTN Reviewed History: Yes Social History Current Living Status: Spouse Speech PLF/Current-Dysphagia Prior Level of Function The patient was nonverbal. The patient had a family member present at bedside. The family member stated the patient consumed a regular diet with thin liquids at home without swallowing difficulties. Subjective The patient was recently admitted to [facility] following a neurological change. The patient initially presented to be nonverbal, however, did intermittently answer spontaneous yes and no questions accurately, as well as, stated, "I want to go home today." The patient was agreeable to participation in the dysphagia evaluation. Cognitive Status Patient Orientation: Non-Verbal/Aphasic Oral Motor Skills Dentition: Edentalous Current Food Consistancy: Regular, Thin Liquids Ability to Follow Directions: Poor Oral Expression Ability: Moderate Impairment (Fluctuating oral expression, intermittent.) Voice Voice Phonatory-Based Quality: Glottal Diez Voice Pitch: Mildly Low Voice Loudness: Mildly Soft/Quiet Oral-Facial Assessment Oral-Facial Dentition: Normal Labial Seal Description: Normal Smile: Normal Lingual Protrusion: Normal Lingual ROM: Normal Lingual Strength: Normal Pharynx Velopharyngeal Move.: Normal Volitional Dry Swallow: Yes Dysphagia Evaluation Consistencies Presented: Regular, Thin Liquid, Pureed - No oral phase deficits were noted throughout the evaluation. - No pharyngeal phase deficits were noted throughout the evaluation. - Thin liquid, puree, and solid: No signs/symptoms of aspiration were demonstrated with multiple boluses of any consistency tested. The patient initially expectorated the puree bolus. The clinician explained to the patient that without swallowing a puree consistency, the patient would be placed on a full liquid diet. Following this information, the patient demonstrated adequate lingual propulsion of bolus material to the posterior oral cavity to trigger a pharyngeal swallow. Dietary Recommendations: Regular Liquid Recommendations: Thin Swallowing Precautions: Small Bites and Sips, Sitting 90 Degrees 30 Post Intake Dysphagia Evaluation Summary The patient demonstrated an oropharyngeal swallow grossly within normal limits. Speech-Plan Treatment Plan Speech Therapy Treatment Plan: Discontinue ST Evaluation, only. Frequency: Daily (The patient will not receive skilled speech services.) Estimated Hrs Per Day: .25 hour per day (The patient will not receive skilled speech services.) Rehab Potential: Fair Safety Risks/Education Teaching Recipient: Patient, Family Teaching Methods: Discussion Response to Teaching: Unable to Comprehend Education Topics Provided: Results, Recommendations, Plan of Care Time Speech Therapy Time In: 10:05 Speech Therapy Time Out: 10:20 Total Billed Time: 15 Billed Treatment Time 1, DYSEVS Speech GCodes Complexity Level Test(s)/Tool Used to Determine: Level of Assistance Scale Functional Limitation-Current Current: KELSEY Modifier: Functional Limitation-Goal Goal: SWALGOAL Modifier: Functional Limitation-D/C Discharge: [facility] Modifier: CH ALIA ASHLEY May 29, 2017 10:34
[2017-05-29] MEDS ORDERED: NON-FORMULARY MEDICATION 1 EA EA (Oxycodone HCl 10 MG) PO PRN (11:30)
[2017-05-29] MEDS ORDERED: RT-IPRATROPIUM (ATROVENT) 0.5MG/2.5ML AMP IH PRN (11:30)
[2017-05-29] MEDS ORDERED: rOPINIRole 1 MG (REQUIP) TABLET PO PRN (11:30)
[2017-05-29] MEDS ORDERED: NON-FORMULARY MEDICATION 1 EA EA (Ondansetron HCl 8 MG) PO PRN (11:30)
[2017-05-29] MEDS ORDERED: RT-ALBUTEROL HFA (VENTOLIN) PER PUFF IH PRN (11:30)
[2017-05-29] MEDS ORDERED: RT-SYMBICORT 160/4.5 MCG INHALER PER PUFF IH PRN (11:30)
[2017-05-29] MEDS ORDERED: ALPRAZolam 1 MG (XANAX) TAB PO PRN (11:30)
[2017-05-29] MEDS ORDERED: QUEtiapine 100 MG (SEROquel) TAB IMMEDIATE RELEASE PO SCH (21:00)
[2017-05-29] MEDS ORDERED: KCL 10 MEQ TAB (MICRO K) PO SCH (21:00)
[2017-05-29] MEDS ORDERED: NON-FORMULARY MEDICATION 1 EA EA (Desvenlafaxine Succinate (Desvenlafaxine Succinate ER) 1 PO SCH (21:00)
[2017-05-29] MEDS ORDERED: NON-FORMULARY MEDICATION 1 EA EA (Zolpidem Tartrate 10 MG) PO SCH (21:00)
[2017-05-29] MEDS ORDERED: NON-FORMULARY MEDICATION 1 EA EA (Ropinirole HCl 3 MG) PO SCH (21:00)
[2017-05-29] MEDS ORDERED: traZODone 100 MG (DESYREL) TAB PO SCH (21:00)
[2017-05-30] MEDS ORDERED: NON-FORMULARY MEDICATION 1 EA EA (Cetirizine HCl 10 MG) PO SCH (09:00)
[2017-05-30] MEDS ORDERED: NON-FORMULARY MEDICATION 1 EA EA (Dexlansoprazole (Dexilant) 60 MG) PO SCH (09:00)
[2017-05-30] MEDS ORDERED: amLODIPine 10 MG (NORVASC) TAB PO SCH (09:00)
[2017-05-30] MEDS ORDERED: SULF1TAB35 PO (17:55)
[2017-05-30] MEDS ORDERED: DIAZ2.5K RC (18:36)
== END 2017-05-29 11:23 | disposition home or self-care (01) ==
LOC: EDUNIT# 18:26 → ER 18:27 → 4TH 21:00 → UNDOADMOB 21:00 → 4TH 21:15 → UNDODISOB 05-29 11:30
PROVIDERS: ADMIT Family Medicine; ATTEND Family Medicine
DX: R10.11 Right upper quadrant pain (principal); R53.1 Weakness; G40.909 Epilepsy, unspecified, not intractable, without status epilepticus; R25.1 Tremor, unspecified; F20.9 Schizophrenia, unspecified; J44.9 Chronic obstructive pulmonary disease, unspecified; I10 Essential (primary) hypertension; F17.210 Nicotine dependence, cigarettes, uncomplicated; Z79.899 Other long term (current) drug therapy; Z95.5 Presence of coronary angioplasty implant and graft; Z95.828 Presence of other vascular implants and grafts; Z90.49 Acquired absence of other specified parts of digestive tract; Z90.710 Acquired absence of both cervix and uterus; Z85.3 Personal history of malignant neoplasm of breast; Z85.42 Personal history of malignant neoplasm of other parts of uterus; Z86.711 Personal history of pulmonary embolism
CPT/HCPCS: 36415; 70450; 70496; 70498; 71010; 74176; 80053; 80156; 80164; 80185; 80306; 80320; 80329; 81000; 82962; 83605; 83690; 84484; 85025; 85379; 85610; 85730; 87040; 93005; 93041; 94010; 94640; 94760; 96361; 96374; 96375; G0378

== ENCOUNTER 2017-05-30 15:04 | Emergency (ER) | payer MEDICAID ==
[~2017-05-30] VITALS: Ht 162.6 cm; Wt 63.5 kg
[~2017-05-30 15:04] MED LIST changes: +ALPR1TAB7 PO; +AMLO10TA2 PO; +CETI10TA17 PO; +DESV100T16 PO; +IPRA0.2S51 NEB; +ONDA8TAB12 PO; +OXYC10TA7 PO; +POTA10TA10 PO; +QUET100T69 PO; +ROPI3TAB2 PO; +RT-ALBUINH INH; +ZOLP10TA5 PO
--- NOTE | 2017-05-30 15:26 | ED Neurological Problem ---
General Stated Complaint: SLURRED SPEECH/STROKE Source: patient, EMS Exam Limitations: no limitations History of Present Illness Time seen by provider: 15:20 Initial Comments To ER per EMS from home after her called 911 for recurrent seizures. She was admitted here 2 days ago for this and had initially been believed to be having a stroke. She had a negative noncontrast CT. A negative CT and a gram of the head. She was evaluated in the next morning with Dr. Burgess, symptoms have resolved patient may need to go home so MRI was not done. Upon arrival to ER she has spasms of both hands, legs drawn up in the left side of her face drawn up. She has a history of schizophrenia, PTSD and seizure disorder. states that the seizures of been worse since the new medication was given for seizure disorder yesterday Timing/Duration: 1 week Severity: moderate Associated Symptoms: seizures Allergies and Home Medications Allergies Coded Allergies: aspirin (Verified Allergy, Unknown, HIVES, 07/30/16) Home Medications Albuterol Sulfate 1 Puff Puff, 2 PUFF INH Q4H PRN for SHORTNESS OF BREATH, ( Reported) Alprazolam 1 Mg Tablet, 1 MG PO BID PRN for ANXIETY, (Reported) Amlodipine Besylate 10 Mg Tablet, 10 MG PO DAILY, (Reported) Budesonide/Formoterol Fumarate 10.2 Gm Hfa.aer.ad, 2 PUFF IH BID PRN for SHORTNESS OF BREATH, (Reported) Cetirizine HCl 10 Mg Tablet, 10 MG PO DAILY, (Reported) Desvenlafaxine Succinate 100 Mg Tab.er.24h, 100 MG PO HS, (Reported) Dexlansoprazole 60 Mg , 60 MG PO DAILY, (Reported) Diazepam 2.5 Mg Kit, 2.5 MG RC PRN PRN for SEIZURE ACTIVITY, #1 Prescribed by: NOBLE TOMAS on 05/30/171835 Ipratropium [place] 0.2 Mg/1 Ml Solution, 0.2 MG NEB Q6H PRN for SHORTNESS OF BREATH, (Reported) Ondansetron HCl 8 Mg Tablet, 8 MG PO TID PRN for NAUSEA/VOMITING-1ST LINE, ( Reported) Oxycodone HCl 10 Mg Tablet, 10 MG PO QID PRN for PAIN-SEVERE, (Reported) Potassium Chloride 10 Meq Tablet.er, 10 MEQ PO BID, (Reported) Quetiapine Fumarate 100 Mg Tablet, 200 MG PO HS, (Reported) TAKES 2 (100MG) TABLETS Ropinirole HCl 1 Mg Tablet, 1-2 MG PO HS PRN for RESTLESS LEGS, (Reported) TAKES 1-2 (1 MG) TABLETS IN ADDITION TO 3MG DOSE NEEDED Ropinirole HCl 3 Mg Tablet, 3 MG PO HS, (Reported) Sulfamethoxazole/Trimethoprim 1 Each Tablet, 1 EACH PO BID, #10 Prescribed by: NOBLE TOMAS on 05/30/17 1605 Trazodone HCl 100 Mg Tablet, 200 MG PO HS, (Reported) TAKES 2 (100MG) TABLETS Zolpidem Tartrate 10 Mg Tablet, 10 MG PO HS, (Reported) Constitutional: see HPI Eyes: No Symptoms Reported Ears, Nose, Mouth, Throat: no symptoms reported Respiratory: no symptoms reported Cardiovascular: no symptoms reported Genitourinary: no symptoms reported Musculoskeletal: no symptoms reported Skin: no symptoms reported Psychiatric/Neurological: [place] Seizures, Tonic Clonic Seizures Endocrine: No Symptoms Reported Hematologic/Lymphatic: No Symptoms Reported Past Pyheigy-Tjotkk-Zjvytn Hx Patient Social History Drug of Choice: MARIJUANA Type Used: Cigarettes Recent Foreign Travel: No Contact w/Someone Who Travel: No Recent Hopitalizations: No Immunizations Up To Date Tetanus Booster (TDap): Unknown PED Vaccines UTD: Yes Date of Pneumonia Vaccine: Jul 27, 2006 Seasonal Allergies Seasonal Allergies: No Surgeries HX Surgeries: Yes (c/s x4, port, blood clot in left lung-stent placed, ) Surgeries: Hysterectomy Respiratory Hx Respiratory Disorders: Yes Respiratory Disorders: Pneumonia, Sleep Apnea, COPD Cardiovascular Hx Cardiac Disorders: Yes (CARDIAC STENTS ) Cardiac Disorders: Heart Murmur, Hypertension Neurological Hx Neurological Disorders: Yes Neurological Disorders: Headaches /Migraines, Seizure Disorder 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 System Hx 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 Disorders: Yes (hx of uterine 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 cancer) 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 Genitourinary Hx Genitourinary Disorders: No Gastrointestinal Hx Gastrointestinal Disorders: Yes (nausea, wt loss r/t cancer) Gastrointestinal Disorders: Gastroesophageal Reflux, Chronic Constipation, Gall Bladder Disease Musculoskeletal Hx Musculoskeletal Disorders: Yes (muscle pain) Musculoskeletal Disorders: Osteoporosis Endocrine Hx Endocrine Disorders: No HEENT HX ENT Disorders: Yes HEENT Disorders: Cataract Cancer Hx Cancer: Yes Cancer: Breast, Ovarian, Uterine Psychosocial Hx Psychiatric Problems: No Behavioral Health Disorders: Sleep Difficulties, PTSD, Schizophrenia, Depression Integumentary HX Skin/Integumentary Disorder: No Blood Transfusions Hx Blood Disorders: Yes (hx of anemia) Adverse Reaction to a Blood Tr: No Family Medical History Significant Family History: No Pertinent Family Hx Family Medial History: Cardiovascular disease 19 FATHER 19 MOTHER Cataracts Completed stroke 19 FATHER 19 MOTHER G8 BROTHER (X3) Diabetes mellitus 19 FATHER 19 MOTHER G8 BROTHER BROTHER FH: breast cancer 19 MOTHER Hypertension 19 FATHER 19 MOTHER Myocardial infarction G8 BROTHER Physical Exam Vital Signs Vital Sign - Last 12Hours 05/30/17 15:04 Temp 97.5 Pulse 80 Resp 16 B/P (MAP) 111/71 Pulse Ox 98 Capillary Refill : General Appearance: WD/WN, no apparent distress, other (patient does not look at me or make eye contact. She is laying on her right side. Left side of her face is drawn because it in a spasm but not drooping or flaccid. Both hands are spasmed and held close against her body. There is no rhythmic or seizure- like activity currently. She does mumble incomprehensibly to me but the is able to understand that she is asking about their goats at home.) HEENT: PERRL/EOMI, normal ENT inspection Neck: non-tender, full range of motion Respiratory: normal breath sounds, no respiratory distress, no accessory muscle use Cardiovascular: regular rate, rhythm, no murmur Gastrointestinal: normal bowel sounds, non tender, soft Neurologic/Psychiatric: alert, normal mood/affect, oriented x 3 Crainal Nerves: normal hearing, normal speech Skin: normal color, warm/dry Stroke Onset of Symptoms Date of Onset of Symptoms: May 28, 2017 NIH Stroke Scale Assessment Select: Initial Level of Consciousness: 0=Alert Level of Consciousness-Questio: 2=Answer neither question LOC Commands: 2=Performs neither task Gaze: 0=Normal Facial Movement (Facial Paresi: 1=Minor paralysis (the left side of the face is not flaccid, it is spasmed.) Motor Function-Arms Left: 2=Some effort/gravity Extinction & Inattention: 0=No abnormality (unable to complete the entire NIH stroke scale as the patient does not follow commands. This would give her an NIH of at least 7.) Stroke Thrombolytic Exclusion Age 18 or Over: Yes Acute intenal hemorrhage: No History of CVA: No Uncontrolled Coagulation Defec: No Intracranial Hemorrhage: No Severe Hypertension: No GI or Bleed: No Subarachnoid Hemorrhage: No Intracranial Neoplasm/Aneurysm: No Oral Anticoagulants: No Progress/Results/Core Measures Results/Orders Lab Results Laboratory Tests Test 05/30/17 15:32 05/30/17 17:10 Range/Units White Blood Count 7.8 4.3-11.0 10^3/uL Red Blood Count 4.03 L 4.35-5.85 10^6/uL Hemoglobin 12.9 11.5-16.0 G/DL Hematocrit 37 35-52 % Mean Corpuscular Volume 93 80-99 FL Mean Corpuscular Hemoglobin 32 25-34 PG Mean Corpuscular Hemoglobin Concent 35 32-36 G/DL Red Cell Distribution Width 13.4 10.0-14.5 % Platelet Count 235 130-400 10^3/uL Mean Platelet Volume 9.2 7.4-10.4 FL Neutrophils (%) (Auto) 65 42-75 % Lymphocytes (%) (Auto) 28 12-44 % Monocytes (%) (Auto) 6 0-12 % Eosinophils (%) (Auto) 1 0-10 % Basophils (%) (Auto) 0 0-10 % Neutrophils # (Auto) 5.1 1.8-7.8 X 10^3 Lymphocytes # (Auto) 2.2 1.0-4.0 X 10^3 Monocytes # (Auto) 0.4 0.0-1.0 X 10^3 Eosinophils # (Auto) 0.1 0.0-0.3 10^3/uL Basophils # (Auto) 0.0 0.0-0.1 10^3/uL Sodium Level 139 135-145 MMOL/L Potassium Level 3.9 3.6-5.0 MMOL/L Chloride Level 107 98-107 MMOL/L Carbon Dioxide Level 23 21-32 MMOL/L Anion Gap 9 5-14 MMOL/L Blood Urea Nitrogen 7 7-18 MG/DL Creatinine 0.66 0.60-1.30 MG/DL Estimat Glomerular Filtration Rate > 60 BUN/Creatinine Ratio 11 Glucose Level 86 70-105 MG/DL Calcium Level 8.4 L 8.5-10.1 MG/DL Total Bilirubin 0.2 0.1-1.0 MG/DL Aspartate Amino Transf (AST/SGOT) 12 5-34 U/L Alanine Aminotransferase (ALT/SGPT) < 6 0-55 U/L Alkaline Phosphatase 82 40-136 U/L Total Protein 6.1 L 6.4-8.2 GM/DL Albumin 3.6 3.2-4.5 GM/DL Serum Alcohol < 10 <10 MG/DL Urine Color YELLOW Urine Clarity CLEAR Urine pH 7 5-9 Urine Specific [place] 1.010 L 1.016-1.022 Urine Protein NEGATIVE NEGATIVE Urine Glucose (UA) NEGATIVE NEGATIVE Urine Ketones NEGATIVE NEGATIVE Urine Nitrite NEGATIVE NEGATIVE Urine Bilirubin NEGATIVE NEGATIVE Urine Urobilinogen NORMAL NORMAL MG/DL Urine Leukocyte Esterase 3+ H NEGATIVE Urine RBC (Auto) 1+ H NEGATIVE Urine RBC 0-2 /HPF Urine WBC 50-100 H /HPF Urine Squamous Epithelial Cells 2-5 /HPF Urine Crystals NONE /LPF Urine Bacteria MODERATE H /HPF Urine Casts NONE /LPF Urine Mucus NEGATIVE /LPF Urine Culture Indicated YES Urine Opiates Screen NEGATIVE NEGATIVE Urine Oxycodone Screen POSITIVE H NEGATIVE Urine Methadone Screen NEGATIVE NEGATIVE Urine Propoxyphene Screen NEGATIVE NEGATIVE Urine Barbiturates Screen NEGATIVE NEGATIVE Ur Tricyclic Antidepressants Screen NEGATIVE NEGATIVE Urine Phencyclidine Screen NEGATIVE NEGATIVE Urine Amphetamines Screen NEGATIVE NEGATIVE Urine Methamphetamines Screen NEGATIVE NEGATIVE Urine Benzodiazepines Screen POSITIVE H NEGATIVE Urine Cocaine Screen NEGATIVE NEGATIVE Urine Cannabinoids Screen NEGATIVE NEGATIVE My Orders Orders - NOBLE TOMAS APRN Cbc With Automated Diff (05/30/17 15:19) Comprehensive Metabolic Panel (05/30/17 15:19) Ua Culture If Indicated (05/30/17 15:19) Drug Screen Stat (Urine) (05/30/17 15:19) Alcohol (05/30/17 15:19) Saline Lock/Iv-Start (05/30/17 15:19) Mri Brain W/Wo Contrast (05/30/17 15:19) Lorazepam Injection (Ativan Injection) (05/30/17 15:30) Gadobutrol Inj (Radiology) (Gadavist Inj (05/30/17 16:45) Urine Culture (05/30/17 17:10) Ceftriaxone Injection (Rocephin Injectio (05/30/17 17:45) Medications Given in ED Current Medications Medications Dose Ordered Sig/Matt Route Start Time Stop Time Status Last Admin Dose Admin Ceftriaxone Sodium 1000 mg/ Sodium Chloride 50 ml @ 100 mls/hr ONCE ONCE IV 05/30/17 17:45 05/30/17 18:14 DC 05/30/17 18:05 100 MLS/HR Gadobutrol 7.5 mmol ONCE ONCE IV 05/30/17 16:45 05/30/17 16:46 DC 05/30/17 16:33 5 MMOL Lorazepam 1 mg ONCE ONCE IVP 05/30/17 15:30 05/30/17 15:31 DC 05/30/17 15:43 1 MG Vital Signs/I&O Vital Sign - Last 12Hours 05/30/17 15:04 Temp 97.5 Pulse 80 Resp 16 B/P (MAP) 111/71 Pulse Ox 98 Diagnostic Imaging Diagonstic Imaging: MRI Comments NAME: HEL[facility]ES [facility] REC#: [id number] PT STATUS: REG ER : 1960 PHYSICIAN: NOBLE TOMAS APRN ADMIT DATE: 05/30/17/ER Draft Date of Exam:05/30/17 MRI BRAIN W/WO CONTRAST CLINICAL INDICATION: Patient with history of ovarian, uterine and breast cancer in 2002, 2003, and 2005 with chemo and radiation treatments. Patient was brought in the hospital 2 days ago unresponsive and CT of head/neck was performed. Patient dismissed from hospital and had seizure earlier today. Patient having slurred speech, right-sided facial droop and both hands drawing up which is worse in the left hand. EXAM: MRI of the brain performed without and with 5 cc of Gadovist IV contrast. Sequences include axial DWI, ADC map, axial gradient echo, axial T2, coronal T2 thin, axial FLAIR, coronal FSPGR 3-D with axial and sagittal reformatted images, axial T1, axial T1 post IV contrast, coronal T1 fat-sat post IV contrast, and sagittal T1 post IV contrast. COMPARISON: CT angiogram of the head/neck and CT scan of the brain without contrast dated 05/28/2017. 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 There is no evidence of acute cerebral infarct, intracranial hemorrhage, or gross mass effect. There are no other areas of abnormal IV contrast enhancement. There is a small area of ossification involving the posterior falx cerebri which is high on T1 and T2, and shows calcification on the comparison head CT. There is normal garzon-white matter distinction. The brain parenchymal volume appears appropriate for patient's age. There is no significant midline shift or herniation. The pituitary gland, sella, and suprasellar regions are unremarkable as visualized. The [place] of [place] vascular structures show no gross abnormality as visualized. There is no evidence of hydrocephalus. The basal cisterns are unremarkable. The skull, extracranial soft tissue, and orbits are unremarkable. The paranasal sinuses are unremarkable. IMPRESSION: 1: There is no evidence of acute intracranial process. There is no acute cerebral infarct, intracranial hemorrhage, hydrocephalus, enhancing mass or metastatic disease. 2: Incidental note of pineal gland cyst. 3: The remainder of this exam is unremarkable. Dictated on workstation # [id number] Dict: 05/30/17 1658 Trans: 05/30/17 1712 [id number] [id number] Interpreted by: KANCHAN CAMPBELL MD Electronically signed by: Departure Communication Progress Notes 1701-patient remains lethargic at this time but her speech is now clear and understandable. She is alert and oriented to person place time and situation. When asked how she feels she states "sore". Her neurologic symptoms are likely from her seizure disorder and postictal state versus a conversion disorder. MRI pending. Labs so far are unremarkable. 1837-patient is upright carrying a blanket around her ambulatory out of the emergency room carrying on a conversation with me states that she feels much better. Impression Impression: Primary Impression: Post-ictal state Additional Impression: Urinary tract infection Disposition: 01 HOME, SELF-CARE Condition: Improved Departure-Patient Inst. Decision time for Depature: 17:54 Referrals: MONICA SIDDIQUI DO (PCP/Family) Primary Care Physician Patient Instructions: Urinary Tract Infection, Adult (DC) Add. Discharge Instructions: 1. Antibiotics as directed 2. Continue all current medications 3. Scripts Diazepam (Diastat) 2.5 Mg Kit 2.5 MG RC PRN Y for SEIZURE ACTIVITY, #1 KIT Prov: NOBLE TOMAS APRN 05/30/17 Sulfamethoxazole/Trimethoprim (Bactrim Ds Tablet) 1 Each Tablet 1 EACH PO BID, #10 TAB Prov: NOBLE TOMAS APRN 05/30/17 NOBLE TOMAS APRN May 30, 2017 15:26
[2017-05-30 15:38] LABS: BASOPHILS % (AUTO) 0 % (0-10); EOSINOPHILS # (AUTO) 0.1 10^3/uL (0.0-0.3); EOSINOPHILS % (AUTO) 1 % (0-10); LYMPHOCYTES # (AUTO) 2.2 X 10^3 (1.0-4.0); LYMPHOCYTES % (AUTO) 28 % (12-44); MEAN CORPUSCULAR HEMOGLOBIN 32 PG (25-34); MEAN CORPUSCULAR HGB CONC 35 G/DL (32-36); MEAN CORPUSCULAR VOLUME 93 FL (80-99); MEAN PLATELET VOLUME 9.2 FL (7.4-10.4); MONOCYTES # (AUTO) 0.4 X 10^3 (0.0-1.0); MONOCYTES % (AUTO) 6 % (0-12); NEUTROPHILS # (AUTO) 5.1 X 10^3 (1.8-7.8); NEUTROPHILS % (AUTO) 65 % (42-75); PLATELET COUNT 235 10^3/uL (130-400); RED BLOOD COUNT 4.03 10^6/uL (4.35-5.85); RED CELL DISTRIBUTION WIDTH 13.4 % (10.0-14.5); WHITE BLOOD COUNT 7.8 10^3/uL (4.3-11.0)
[2017-05-30] MEDS: LORazepam INJ 2 MG/ML (ATIVAN) VIAL IVP ONE (15:43)
[2017-05-30 16:01] LABS: ALANINE AMINOTRANSFERASE < 6 U/L (0-55); ALBUMIN 3.6 GM/DL (3.2-4.5); ALCOHOL < 10 MG/DL (<10); ANION GAP 9 MMOL/L (5-14); ASPARTATE AMINO TRANSFERASE 12 U/L (5-34); BILIRUBIN,TOTAL 0.2 MG/DL (0.1-1.0); BLOOD UREA NITROGEN 7 MG/DL (7-18); BUN/CREATININE RATIO 11; CALCIUM 8.4 MG/DL (8.5-10.1); CARBON DIOXIDE 23 MMOL/L (21-32); CHLORIDE 107 MMOL/L (98-107); CREATININE SERUM 0.66 MG/DL (0.60-1.30); GFR ESTIMATED > 60; GLUCOSE 86 MG/DL (70-105); POTASSIUM 3.9 MMOL/L (3.6-5.0); SODIUM 139 MMOL/L (135-145); TOTAL PROTEIN 6.1 GM/DL (6.4-8.2)
[2017-05-30] MEDS: GADOBUTROL 7.5 MMOL/7.5 ML (GADAVIST) VIAL IV ONE (16:33)
--- NOTE | 2017-05-30 17:12 | Diagnostic Imaging Report ---
CLINICAL INDICATION: Patient with history of ovarian, uterine and breast cancer in 2002, 2003, and 2005 with chemo and radiation treatments. Patient was brought in the hospital 2 days ago unresponsive and CT of head/neck was performed. Patient dismissed from hospital and had seizure earlier today. Patient having slurred speech, right-sided facial droop and both hands drawing up which is worse in the left hand. EXAM: MRI of the brain performed without and with 5 cc of Gadovist IV contrast. Sequences include axial DWI, ADC map, axial gradient echo, axial T2, coronal T2 thin, axial FLAIR, coronal FSPGR 3-D with axial and sagittal reformatted images, axial T1, axial T1 post IV contrast, coronal T1 fat-sat post IV contrast, and sagittal T1 post IV contrast. COMPARISON: CT angiogram of the head/neck and CT scan of the brain without contrast dated 05/28/2017. 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 There is no evidence of acute cerebral infarct, intracranial hemorrhage, or gross mass effect. There are no other areas of abnormal IV contrast enhancement. There is a small area of ossification involving the posterior falx cerebri which is high on T1 and T2, and shows calcification on the comparison head CT. There is normal garzon-white matter distinction. The brain parenchymal volume appears appropriate for patient's age. There is no significant midline shift or herniation. The pituitary gland, sella, and suprasellar regions are unremarkable as visualized. The [place] of [place] vascular structures show no gross abnormality as visualized. There is no evidence of hydrocephalus. The basal cisterns are unremarkable. The skull, extracranial soft tissue, and orbits are unremarkable. The paranasal sinuses are unremarkable. IMPRESSION: 1: There is no evidence of acute intracranial process. There is no acute cerebral infarct, intracranial hemorrhage, hydrocephalus, enhancing mass or metastatic disease. 2: Incidental note of pineal gland cyst. 3: The remainder of this exam is unremarkable. Dictated by: Dictated on workstation # [id number]
[2017-05-30 17:22] LABS: BILIRUBIN,URINE NEGATIVE (NEGATIVE); KETONES,URINE NEGATIVE (NEGATIVE); LEUKOCYTE ESTERASE ,URINE 3+ (NEGATIVE); NITRITE,URINE NEGATIVE (NEGATIVE); PH,URINE 7 (5-9); PROTEIN,URINE NEGATIVE (NEGATIVE); UROBILINOGEN,URINE NORMAL (NORMAL)
[2017-05-30 17:37] LABS: WBC,URINE 50-100 /HPF
[2017-05-30] MEDS ORDERED: SULF1TAB35 PO (17:55)
[2017-05-30] MEDS: cefTRIAXone INJECTION 1,000 MG in NS (IVPB) 50 ML IV ONE (18:05)
[2017-05-30] MEDS ORDERED: DIAZ2.5K RC (18:36)
[2017-05-30 18:40] VITALS: BP 118/70
== END 2017-05-30 18:40 | disposition home or self-care (01) ==
LOC: EDUNIT# 15:04 → ER 15:05
DX: G40.909 Epilepsy, unspecified, not intractable, without status epilepticus (principal); N39.0 Urinary tract infection, site not specified; F32.9 Major depressive disorder, single episode, unspecified; F43.10 Post-traumatic stress disorder, unspecified; M81.0 Age-related osteoporosis without current pathological fracture; K21.9 Gastro-esophageal reflux disease without esophagitis; I10 Essential (primary) hypertension; J44.9 Chronic obstructive pulmonary disease, unspecified; Z86.2 Personal history of diseases of the blood and blood-forming organs and certain disorders involving the immune mechanism; Z95.5 Presence of coronary angioplasty implant and graft; Z90.710 Acquired absence of both cervix and uterus; Z85.43 Personal history of malignant neoplasm of ovary; Z85.42 Personal history of malignant neoplasm of other parts of uterus; Z85.3 Personal history of malignant neoplasm of breast
CPT/HCPCS: 36415; 70553; 80053; 80306; 80320; 81000; 85025; 87088; 87186

== ENCOUNTER 2017-08-08 18:13 | Emergency (ER) | payer MEDICAID ==
[~2017-08-08] VITALS: Ht 157.5 cm; Wt 45.4 kg
[~2017-08-08 18:13] MED LIST changes: +DIAZ2.5K RC; +SULF1TAB35 PO
[2017-08-08] MEDS ORDERED: LORazepam INJ 2 MG/ML (ATIVAN) VIAL IVP ONE (18:45)
[2017-08-08] MEDS ORDERED: NS IV 1000 ML 1,000 ML IV SCH (18:45)
--- NOTE | 2017-08-08 18:51 | ED Neurological Problem ---
General Chief Complaint: Neurological Problems Stated Complaint: SEIZURE Nursing Triage Note: ARRIVED VIA AMB TO ROOM 07 WITH COMPLAINTS OF SEIZURE AT [facility] LASTING APPX 2 MINUTES. THEY CALLED EMS BUT SHE DID NOT WANT TO GO BY EMS. WANTED HER TO BE SEEN. STATES SHE HAS A SIEZURE ABOUT EVERY DAY. Nursing Sepsis Screen: No Definite Risk Source: patient Exam Limitations: no limitations History of Present Illness Time seen by provider: 18:49 Initial Comments To ER with reports of seizure-like activity while at [facility]. This lasted for approximately 2 minutes. EMS was summoned but they refused transportation to the emergency room by EMS so she arrives per private vehicle. states she has these seizures about every day. History of breast cancer and ovarian cancer. He has not been on treatment for quite a long time. She's had worsening of her chronic tremors lately. She is not on any antiepileptic medications. She has recently had nausea and vomiting. Timing/Duration: 1 week Severity: moderate Allergies and Home Medications Allergies Coded Allergies: aspirin (Verified Allergy, Unknown, HIVES, 07/30/16) Home Medications Albuterol Sulfate 1 Puff Puff, 2 PUFF INH Q4H PRN for SHORTNESS OF BREATH, ( Reported) Alprazolam 1 Mg Tablet, 1 MG PO BID PRN for ANXIETY, (Reported) Amlodipine Besylate 10 Mg Tablet, 10 MG PO DAILY, (Reported) Budesonide/Formoterol Fumarate 10.2 Gm Hfa.aer.ad, 2 PUFF IH BID PRN for SHORTNESS OF BREATH, (Reported) Cetirizine HCl 10 Mg Tablet, 10 MG PO DAILY, (Reported) Desvenlafaxine Succinate 100 Mg Tab.er.24h, 100 MG PO HS, (Reported) Dexlansoprazole 60 Mg Macario.bp, 60 MG PO DAILY, (Reported) Diazepam 2.5 Mg Kit, 2.5 MG RC PRN PRN for SEIZURE ACTIVITY, #1 Prescribed by: NOBLE TOMAS on 05/30/17 293 Ipratropium [place] 0.2 Mg/1 Ml Solution, 0.2 MG NEB Q6H PRN for SHORTNESS OF BREATH, (Reported) Ondansetron HCl 8 Mg Tablet, 8 MG PO TID PRN for NAUSEA/VOMITING-1ST LINE, ( Reported) Oxycodone HCl 10 Mg Tablet, 10 MG PO QID PRN for PAIN-SEVERE, (Reported) Potassium Chloride 10 Meq Tablet.er, 10 MEQ PO BID, (Reported) Quetiapine Fumarate 100 Mg Tablet, 200 MG PO HS, (Reported) TAKES 2 (100MG) TABLETS Ropinirole HCl 1 Mg Tablet, 1-2 MG PO HS PRN for RESTLESS LEGS, (Reported) TAKES 1-2 (1 MG) TABLETS IN ADDITION TO 3MG DOSE NEEDED Ropinirole HCl 3 Mg Tablet, 3 MG PO HS, (Reported) Sulfamethoxazole/Trimethoprim 1 Each Tablet, 1 EACH PO BID, #10 Prescribed by: NOBLE TOMAS on 05/30/17 8995 Trazodone HCl 100 Mg Tablet, 200 MG PO HS, (Reported) TAKES 2 (100MG) TABLETS Zolpidem Tartrate 10 Mg Tablet, 10 MG PO HS, (Reported) Constitutional: see HPI Eyes: No Symptoms Reported Ears, Nose, Mouth, Throat: no symptoms reported Respiratory: no symptoms reported Cardiovascular: no symptoms reported Genitourinary: no symptoms reported Musculoskeletal: no symptoms reported Skin: no symptoms reported Psychiatric/Neurological: See HPI Endocrine: No Symptoms Reported Hematologic/Lymphatic: No Symptoms Reported Past Lwqetdt-Xdtwms-Wnnwlm Hx Patient Social History Alcohol Use: Denies Use Recreational Drug Use: Yes Drug of Choice: MARIJUANA Smoking Status: Current Everyday Smoker Type Used: Cigarettes Recent Foreign Travel: No Contact w/Someone Who Travel: No Recent Infectious Disease Expo: No Recent Hopitalizations: No Immunizations Up To Date Tetanus Booster (TDap): Unknown PED Vaccines UTD: Yes Date of Pneumonia Vaccine: Jul 27, 2006 Seasonal Allergies Seasonal Allergies: No Surgeries History of Surgeries: Yes (c/s x4, port, blood clot in left lung-stent placed, ) Surgeries: Hysterectomy Respiratory History of Respiratory Disorde: Yes Respiratory Disorders: Pneumonia, Sleep Apnea, COPD Currently Using CPAP: No Currently Using BIPAP: No Cardiovascular History of Cardiac Disorders: Yes (CARDIAC STENTS ) Cardiac Disorders: Heart Murmur, Hypertension Neurological History of Neurological Disord: Yes Neurological Disorders: Headaches /Migraines, Seizure Disorder 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 System Hx 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 Disorders: Yes (hx of 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 breast cancer) 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 Genitourinary History of Genitourinary Disor: No Gastrointestinal History of Gastrointestinal Di: Yes Gastrointestinal Disorders: Gastroesophageal Reflux, Chronic Constipation, Gall Bladder Disease Musculoskeletal History of Musculoskeletal Dis: Yes (muscle pain) Musculoskeletal Disorders: Osteoporosis Endocrine History of Endocrine Disorders: No HEENT History of HEENT Disorders: Yes HEENT Disorders: Cataract Cancer History of Cancer: Yes Cancer: Breast, Ovarian, Uterine Did You Recieve Any Treatments: Yes Type of Tx Receive: Chemotherapy, Surgical Intervention Psychosocial History of Psychiatric Problem: No Behavioral Health Disorders: Sleep Difficulties, PTSD, Schizophrenia, Depression Integumentary History of Skin or Integumenta: No Blood Transfusions History of Blood Disorders: Yes (hx of anemia) Adverse Reaction to a Blood Tr: No Family Medical History Significant Family History: No Pertinent Family Hx Family Medial History: Cardiovascular disease 19 FATHER 19 MOTHER Cataracts Completed stroke 19 FATHER 19 MOTHER G8 BROTHER (X3) Diabetes mellitus 19 FATHER 19 MOTHER G8 BROTHER BROTHER FH: breast cancer 19 MOTHER Hypertension 19 FATHER 19 MOTHER Myocardial infarction G8 BROTHER Physical Exam Vital Signs Vital Sign - Last 12Hours 08/08/17 18:43 Temp 98.0 Pulse 104 Resp 18 B/P (MAP) 85/ Pulse Ox 100 Capillary Refill : Less Than 3 Seconds General Appearance: WD/WN, no apparent distress HEENT: PERRL/EOMI, normal ENT inspection Respiratory: no respiratory distress, no accessory muscle use Cardiovascular: regular rate, rhythm, no murmur Gastrointestinal: normal bowel sounds, non tender, soft Neurologic/Psychiatric: alert, normal mood/affect, oriented x 3 Crainal Nerves: normal hearing, normal speech, PERRL Skin: normal color, warm/dry Comments Prominent tremor affecting all extremities noted. Stroke Stroke Thrombolytic Exclusion Age 18 or Over: Yes Acute intenal hemorrhage: No History of CVA: No Uncontrolled Coagulation Defec: No Intracranial Hemorrhage: No Severe Hypertension: No GI or Bleed: No Subarachnoid Hemorrhage: No Intracranial Neoplasm/Aneurysm: No Oral Anticoagulants: No Progress/Results/Core Measures Results/Orders Lab Results Laboratory Tests Test 08/08/17 18:47 08/08/17 19:20 Range/Units Urine Color YELLOW Urine Clarity CLEAR Urine pH 7 5-9 Urine Specific [place] 1.005 L 1.016-1.022 Urine Protein NEGATIVE NEGATIVE Urine Glucose (UA) NEGATIVE NEGATIVE Urine Ketones NEGATIVE NEGATIVE Urine Nitrite NEGATIVE NEGATIVE Urine Bilirubin NEGATIVE NEGATIVE Urine Urobilinogen NORMAL NORMAL MG/DL Urine Leukocyte Esterase NEGATIVE NEGATIVE Urine RBC (Auto) NEGATIVE NEGATIVE Urine RBC RARE /HPF Urine WBC 2-5 /HPF Urine Squamous Epithelial Cells 25-50 H /HPF Urine Crystals NONE /LPF Urine Bacteria FEW H /HPF Urine Casts NONE /LPF Urine Mucus NEGATIVE /LPF Urine Culture Indicated NO Urine Opiates Screen NEGATIVE NEGATIVE Urine Oxycodone Screen NEGATIVE NEGATIVE Urine Methadone Screen NEGATIVE NEGATIVE Urine Propoxyphene Screen NEGATIVE NEGATIVE Urine Barbiturates Screen NEGATIVE NEGATIVE Ur Tricyclic Antidepressants Screen NEGATIVE NEGATIVE Urine Phencyclidine Screen NEGATIVE NEGATIVE Urine Amphetamines Screen NEGATIVE NEGATIVE Urine Methamphetamines Screen NEGATIVE NEGATIVE Urine Benzodiazepines Screen POSITIVE H NEGATIVE Urine Cocaine Screen NEGATIVE NEGATIVE Urine Cannabinoids Screen NEGATIVE NEGATIVE White Blood Count 8.6 4.3-11.0 10^3/uL Red Blood Count 3.66 L 4.35-5.85 10^6/uL Hemoglobin 11.9 11.5-16.0 G/DL Hematocrit 35 35-52 % Mean Corpuscular Volume 97 80-99 FL Mean Corpuscular Hemoglobin 33 25-34 PG Mean Corpuscular Hemoglobin Concent 34 32-36 G/DL Red Cell Distribution Width 15.8 H 10.0-14.5 % Platelet Count 290 130-400 10^3/uL Mean Platelet Volume 9.1 7.4-10.4 FL Neutrophils (%) (Auto) 69 42-75 % Lymphocytes (%) (Auto) 23 12-44 % Monocytes (%) (Auto) 7 0-12 % Eosinophils (%) (Auto) 0 0-10 % Basophils (%) (Auto) 1 0-10 % Neutrophils # (Auto) 6.0 1.8-7.8 X 10^3 Lymphocytes # (Auto) 2.0 1.0-4.0 X 10^3 Monocytes # (Auto) 0.6 0.0-1.0 X 10^3 Eosinophils # (Auto) 0.0 0.0-0.3 10^3/uL Basophils # (Auto) 0.0 0.0-0.1 10^3/uL My Orders Orders - NOBLE TOMAS DIRECTOR DATA PROCESSING Cbc With Automated Diff (08/08/17 18:45) Comprehensive Metabolic Panel (08/08/17 18:45) Ua Culture If Indicated (08/08/17 18:45) Drug Screen Stat (Urine) (08/08/17 18:45) Thyroid Stimulating Hormone (08/08/17 18:45) Ct Head Wo (08/08/17 18:45) Saline Lock/Iv-Start (08/08/17 18:45) Ns Iv 1000 Ml (Sodium Chloride 0.9%) (08/08/17 18:45) Lorazepam Injection (Ativan Injection) (08/08/17 18:45) Vital Signs/I&O Vital Sign - Last 12Hours 08/08/17 18:43 Temp 98.0 Pulse 104 Resp 18 B/P (MAP) 85/ Pulse Ox 100 Diagnostic Imaging Diagonstic Imaging: CT Comments NAME: [facility] REC#: [id number] PT STATUS: REG ER : 1960 PHYSICIAN: NOBLE TOMAS APRN ADMIT DATE: 08/08/17/ER Signed Date of Exam:08/08/17 CT HEAD WO PROCEDURE: CT head without contrast. TECHNIQUE: Multiple contiguous axial images were obtained through the brain without the use of intravenous contrast. INDICATION: Seizure and headache. CORRELATION STUDY: 05/28/2017 FINDINGS: There is no midline shift or mass effect. The ventricles and sulci are unremarkable. No evidence for acute intracranial hemorrhage, abnormal extra-axial fluid collections or cerebral edema is present. The basilar cisterns are unremarkable. The visualized paranasal sinuses and mastoid air cells are clear. The bony calvarium is intact. IMPRESSION: Negative appearing noncontrast CT of the head. Dictated by: Dictated on workstation # [id number] Dict: 08/08/171903 Trans: 08/08/171904 [id number] Interpreted by: THEODORE PIRES DO Electronically signed by: THEODORE PIRES DO 08/08/171904 Departure Impression Impression: Primary Impression: History of seizure-like activity Disposition: 01 HOME, SELF-CARE Condition: Stable Departure-Patient Inst. Decision time for Depature: 19:32 Referrals: MONICA SIDDIQUI DO (PCP/Family) Primary Care Physician Patient Instructions: NO INSTRUCTIONS GIVEN Add. Discharge Instructions: 1. Follow-up with her regular doctor later this week 2. Return to ER for any concerns 3. All discharge instructions reviewed with patient and/or family. Voiced understanding. NOBLE TOMAS APRN Aug 08, 2017 18:51
[2017-08-08 19:00] LABS: BILIRUBIN,URINE NEGATIVE (NEGATIVE); KETONES,URINE NEGATIVE (NEGATIVE); LEUKOCYTE ESTERASE ,URINE NEGATIVE (NEGATIVE); NITRITE,URINE NEGATIVE (NEGATIVE); PH,URINE 7 (5-9); PROTEIN,URINE NEGATIVE (NEGATIVE); UROBILINOGEN,URINE NORMAL (NORMAL)
--- NOTE | 2017-08-08 19:07 | Diagnostic Imaging Report ---
PROCEDURE: CT head without contrast. TECHNIQUE: Multiple contiguous axial images were obtained through the brain without the use of intravenous contrast. INDICATION: Seizure and headache. CORRELATION STUDY: 05/28/2017 FINDINGS: There is no midline shift or mass effect. The ventricles and sulci are unremarkable. No evidence for acute intracranial hemorrhage, abnormal extra-axial fluid collections or cerebral edema is present. The basilar cisterns are unremarkable. The visualized paranasal sinuses and mastoid air cells are clear. The bony calvarium is intact. IMPRESSION: Negative appearing noncontrast CT of the head. Dictated by: Dictated on workstation # [id number]
[2017-08-08 19:08] LABS: SQUAMOUS EPITHELIAL CELL,UR 25-50 /HPF
[2017-08-08 19:27] LABS: BASOPHILS % (AUTO) 1 % (0-10); EOSINOPHILS % (AUTO) 0 % (0-10); LYMPHOCYTES % (AUTO) 23 % (12-44); MEAN CORPUSCULAR HEMOGLOBIN 33 PG (25-34); MEAN CORPUSCULAR HGB CONC 34 G/DL (32-36); MEAN CORPUSCULAR VOLUME 97 FL (80-99); MEAN PLATELET VOLUME 9.1 FL (7.4-10.4); MONOCYTES # (AUTO) 0.6 X 10^3 (0.0-1.0); MONOCYTES % (AUTO) 7 % (0-12); NEUTROPHILS % (AUTO) 69 % (42-75); PLATELET COUNT 290 10^3/uL (130-400); RED BLOOD COUNT 3.66 10^6/uL (4.35-5.85); RED CELL DISTRIBUTION WIDTH 15.8 % (10.0-14.5); WHITE BLOOD COUNT 8.6 10^3/uL (4.3-11.0)
[2017-08-08 19:43] LABS: ALANINE AMINOTRANSFERASE 9 U/L (0-55); ALBUMIN 3.8 GM/DL (3.2-4.5); ANION GAP 9 MMOL/L (5-14); ASPARTATE AMINO TRANSFERASE 13 U/L (5-34); BILIRUBIN,TOTAL 0.2 MG/DL (0.1-1.0); BLOOD UREA NITROGEN 6 MG/DL (7-18); BUN/CREATININE RATIO 9; CALCIUM 8.9 MG/DL (8.5-10.1); CARBON DIOXIDE 24 MMOL/L (21-32); CHLORIDE 108 MMOL/L (98-107); CREATININE SERUM 0.68 MG/DL (0.60-1.30); GFR ESTIMATED > 60; GLUCOSE 86 MG/DL (70-105); POTASSIUM 3.8 MMOL/L (3.6-5.0); SODIUM 141 MMOL/L (135-145); TOTAL PROTEIN 6.4 GM/DL (6.4-8.2)
[2017-08-08 20:02] LABS: THYROID STIMULATING HORMONE 1.01 UIU/ML (0.35-4.94)
[2017-08-08 20:23] VITALS: BP 0/0
== END 2017-08-08 20:23 | disposition home or self-care (01) ==
LOC: EDUNIT# 18:13 → ER 18:15
DX: R25.8 Other abnormal involuntary movements (principal); J44.9 Chronic obstructive pulmonary disease, unspecified; G47.30 Sleep apnea, unspecified; I10 Essential (primary) hypertension; G43.909 Migraine, unspecified, not intractable, without status migrainosus; K21.9 Gastro-esophageal reflux disease without esophagitis; G40.909 Epilepsy, unspecified, not intractable, without status epilepticus; M81.0 Age-related osteoporosis without current pathological fracture; F43.10 Post-traumatic stress disorder, unspecified; F20.9 Schizophrenia, unspecified; F32.9 Major depressive disorder, single episode, unspecified; F12.10 Cannabis abuse, uncomplicated; F17.210 Nicotine dependence, cigarettes, uncomplicated; Z80.3 Family history of malignant neoplasm of breast; Z82.49 Family history of ischemic heart disease and other diseases of the circulatory system; Z87.19 Personal history of other diseases of the digestive system; Z90.710 Acquired absence of both cervix and uterus; Z95.5 Presence of coronary angioplasty implant and graft; Z87.01 Personal history of pneumonia (recurrent); Z85.3 Personal history of malignant neoplasm of breast; Z85.43 Personal history of malignant neoplasm of ovary
CPT/HCPCS: 36415; 70450; 80053; 80306; 81000; 84443; 85025

== ENCOUNTER 2017-12-15 15:35 | Emergency (ER) | payer MEDICAID ==
[~2017-12-15] VITALS: Ht 152.4 cm; Wt 44.0 kg
[~2017-12-15 15:35] MED LIST changes: +ACHD5005 PO; -HYDR-3812 PO; -ROSU10TA24 PO; +ROSU10TA26 PO
--- NOTE | 2017-12-15 16:35 | ED General ---
General Chief Complaint: General Problems/Pain Stated Complaint: PORT TUBE IS HARD AND HURTING Nursing Triage Note: PATIENT STATES FOR THE LAST COUPLE OF WEEKS HER PORT HAS BEEN HARD AND PAINFUL. SHE STATES THAT SHE HAS NOT BEEN IN CONTACT WITH HER DOCTOR ABOUT THIS YET. PATIENT ALSO STATES THAT SHE HAS HAD NAUSEA SINCE JULY. Nursing Sepsis Screen: No Definite Risk Source of Information: Patient Exam Limitations: No Limitations History of Present Illness Date Seen by Provider: Dec 15, 2017 Time Seen by Provider: 16:31 Initial Comments To ER with reports of her left subclavian Gro[place]ong tubing feeling firm and more visible. She had this placed in 2002. She had placed because she has a history of breast cancer treated with lumpectomy as well as uterine and ovarian cancer shortly thereafter. She receives treatment and is considered to be in remission as far as she is aware. She's had a hysterectomy. She also had her gallbladder out in July and since then she has severe pain in her right lower quadrant and nausea anytime she eats. In 2002 when she had the Groshong placed she weighed 198 pounds and since then has lost 100 pounds. Timing/Duration: 1-2 Days Severity: Moderate Associated Systoms: Nausea/Vomiting Allergies and Home Medications Allergies Coded Allergies: aspirin (Verified Allergy, Unknown, HIVES, 07/30/16) Home Medications Albuterol Sulfate 1 Puff Puff, 2 PUFF INH Q4H PRN for SHORTNESS OF BREATH, ( Reported) Alprazolam 1 Mg Tablet, 1 MG PO BID PRN for ANXIETY, (Reported) Amlodipine Besylate 10 Mg Tablet, 10 MG PO DAILY, (Reported) Budesonide/Formoterol Fumarate 10.2 Gm Hfa.aer.ad, 2 PUFF IH BID PRN for SHORTNESS OF BREATH, (Reported) Cetirizine HCl 10 Mg Tablet, 10 MG PO DAILY, (Reported) Desvenlafaxine Succinate 100 Mg Tab.er.24h, 100 MG PO HS, (Reported) Dexlansoprazole 60 Mg , 60 MG PO DAILY, (Reported) Diazepam 2.5 Mg Kit, 2.5 MG RC PRN PRN for SEIZURE ACTIVITY, #1 Prescribed by: NOBLE TOMAS on 05/30/17 1836 Dicyclomine HCl 10 Mg Capsule, 10 MG PO QID, #28 Prescribed by: NOBLE TOMAS on 12/15/175 Ipratropium [place] 0.2 Mg/1 Ml Solution, 0.2 MG NEB Q6H PRN for SHORTNESS OF BREATH, (Reported) Ondansetron HCl 8 Mg Tablet, 8 MG PO TID PRN for NAUSEA/VOMITING-1ST LINE, ( Reported) Oxycodone HCl 10 Mg Tablet, 10 MG PO QID PRN for PAIN-SEVERE, (Reported) Potassium Chloride 10 Meq Tablet.er, 10 MEQ PO BID, (Reported) Quetiapine Fumarate 100 Mg Tablet, 200 MG PO HS, (Reported) TAKES 2 (100MG) TABLETS Ropinirole HCl 1 Mg Tablet, 1-2 MG PO HS PRN for RESTLESS LEGS, (Reported) TAKES 1-2 (1 MG) TABLETS IN ADDITION TO 3MG DOSE NEEDED Ropinirole HCl 3 Mg Tablet, 3 MG PO HS, (Reported) Sulfamethoxazole/Trimethoprim 1 Each Tablet, 1 EACH PO BID, #10 Prescribed by: NOBLE TOMAS on 05/30/17 1755 Sulfamethoxazole/Trimethoprim 1 Each Tablet, 1 EACH PO BID, #14 Prescribed by: NOBLE TOMAS on 12/15/17 1909 Trazodone HCl 100 Mg Tablet, 200 MG PO HS, (Reported) TAKES 2 (100MG) TABLETS Zolpidem Tartrate 10 Mg Tablet, 10 MG PO HS, (Reported) Constitutional: see HPI EENTM: see HPI Respiratory: no symptoms reported Cardiovascular: no symptoms reported Gastrointestinal: abdominal pain Genitourinary: no symptoms reported Musculoskeletal: no symptoms reported Skin: no symptoms reported Psychiatric/Neurological: No Symptoms Reported Hematologic/Lymphatic: No Symptoms Reported Immunological/Allergic: no symptoms reported Past Abqwxig-Jcoprx-Ifssig Hx Patient Social History Alcohol Use: Denies Use Recreational Drug Use: No Drug of Choice: MARIJUANA Smoking Status: Current Everyday Smoker Type Used: Cigarettes 2nd Hand Smoke Exposure: Yes Recent Foreign Travel: No Contact w/Someone Who Travel: No Recent Infectious Disease Expo: No Recent Hopitalizations: No Immunizations Up To Date Tetanus Booster (TDap): Unknown PED Vaccines UTD: Yes Date of Pneumonia Vaccine: Jul 27, 2006 Seasonal Allergies Seasonal Allergies: No Surgeries History of Surgeries: Yes (c/s x4, port, blood clot in left lung-stent placed, ) Surgeries: Hysterectomy Respiratory History of Respiratory Disorde: Yes Respiratory Disorders: Pneumonia, Sleep Apnea, COPD Currently Using CPAP: No Currently Using BIPAP: No Cardiovascular History of Cardiac Disorders: Yes (CARDIAC STENTS ) Cardiac Disorders: Heart Murmur, Hypertension Neurological History of Neurological Disord: Yes Neurological Disorders: Headaches /Migraines, Seizure Disorder 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 System Hx 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 Disorders: Yes (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 Genitourinary History of Genitourinary Disor: No Gastrointestinal History of Gastrointestinal Di: Yes Gastrointestinal Disorders: Gastroesophageal Reflux, Chronic Constipation, Gall Bladder Disease Musculoskeletal History of Musculoskeletal Dis: Yes (muscle pain) Musculoskeletal Disorders: Osteoporosis Endocrine History of Endocrine Disorders: No HEENT History of HEENT Disorders: Yes HEENT Disorders: Cataract Cancer History of Cancer: Yes Cancer: Breast, Ovarian, Uterine Did You Recieve Any Treatments: Yes Type of Tx Receive: Chemotherapy, Surgical Intervention Psychosocial History of Psychiatric Problem: No Behavioral Health Disorders: Sleep Difficulties, PTSD, Schizophrenia, Depression Integumentary History of Skin or Integumenta: No Blood Transfusions History of Blood Disorders: Yes (hx of anemia) Adverse Reaction to a Blood Tr: No Family Medical History Significant Family History: No Pertinent Family Hx Family Medial History: Cardiovascular disease 19 FATHER 19 MOTHER Cataracts Completed stroke 19 FATHER 19 MOTHER G8 BROTHER (X3) Diabetes mellitus 19 FATHER 19 MOTHER G8 BROTHER BROTHER FH: breast cancer 19 MOTHER Hypertension 19 FATHER 19 MOTHER Myocardial infarction G8 BROTHER Physical Exam Vital Signs Vital Signs - First Documented 12/15/17 16:05 Temp 99.7 Pulse 83 B/P (MAP) 117/75 (89) Pulse Ox 98 O2 Delivery Room Air Capillary Refill : Less Than 3 Seconds General Appearance: No Apparent Distress, WD/WN Eyes: Bilateral Eye Normal Inspection, Bilateral Eye PERRL, Bilateral Eye EOMI HEENT: PERRL/EOMI, TMs Normal Respiratory: No Accessory Muscle Use, No Respiratory Distress Cardiovascular: Regular Rate, Rhythm, Normal Peripheral Pulses Gastrointestinal: Normal Bowel Sounds, Soft, Tenderness (right lower quadrant) Extremity: Normal Capillary Refill, Normal Inspection Neurologic/Psychiatric: Alert, Oriented x3, No Motor/Sensory Deficits Skin: Normal Color, Warm/Dry Comments The left Groshong tubing is quite visible beneath her skin and pushes the skin outward., Likely a factor of her significant weight loss. Progress/Results/Core Measures Suspected Sepsis Recent Fever Within 48 Hours: No Infection Criteria Present: Suspected New Infection New/Unexplained Altered Menta: No Sepsis Screen: No Definite Risk Sepsis Diagnosis: SIRS Temperature:99.7 Pulse: 83 Respiratory Rate: Laboratory Tests 12/15/17 17:30: White Blood Count 9.8 Blood Pressure 117 /75 Mean: 89 Laboratory Tests 12/15/17 17:30: Creatinine 0.82, Platelet Count 296, Total Bilirubin 0.2 Results/Orders Lab Results Laboratory Tests Test 12/15/17 17:30 Range/Units White Blood Count 9.8 4.3-11.0 10^3/uL Red Blood Count 3.94 L 4.35-5.85 10^6/uL Hemoglobin 12.9 11.5-16.0 G/DL Hematocrit 37 35-52 % Mean Corpuscular Volume 93 80-99 FL Mean Corpuscular Hemoglobin 33 25-34 PG Mean Corpuscular Hemoglobin Concent 35 32-36 G/DL Red Cell Distribution Width 13.1 10.0-14.5 % Platelet Count 296 130-400 10^3/uL Mean Platelet Volume 9.5 7.4-10.4 FL Neutrophils (%) (Auto) 61 42-75 % Lymphocytes (%) (Auto) 33 12-44 % Monocytes (%) (Auto) 5 0-12 % Eosinophils (%) (Auto) 1 0-10 % Basophils (%) (Auto) 0 0-10 % Neutrophils # (Auto) 5.9 1.8-7.8 X 10^3 Lymphocytes # (Auto) 3.2 1.0-4.0 X 10^3 Monocytes # (Auto) 0.5 0.0-1.0 X 10^3 Eosinophils # (Auto) 0.1 0.0-0.3 10^3/uL Basophils # (Auto) 0.0 0.0-0.1 10^3/uL Urine Color YELLOW Urine Clarity CLEAR Urine pH 6 5-9 Urine Specific [place] 1.025 H 1.016-1.022 Urine Protein NEGATIVE NEGATIVE Urine Glucose (UA) NEGATIVE NEGATIVE Urine Ketones NEGATIVE NEGATIVE Urine Nitrite NEGATIVE NEGATIVE Urine Bilirubin NEGATIVE NEGATIVE Urine Urobilinogen 1 NORMAL MG/DL Urine Leukocyte Esterase 2+ H NEGATIVE Urine RBC (Auto) NEGATIVE NEGATIVE Urine RBC 2-5 H /HPF Urine WBC 10-25 H /HPF Urine Squamous Epithelial Cells 10-25 H /HPF Urine Crystals NONE /LPF Urine Bacteria MODERATE H /HPF Urine Casts PRESENT /LPF Urine Hyaline Casts 2-5 H /LPF Urine Mucus NEGATIVE /LPF Urine Culture Indicated YES Sodium Level 139 135-145 MMOL/L Potassium Level 4.2 3.6-5.0 MMOL/L Chloride Level 108 H 98-107 MMOL/L Carbon Dioxide Level 23 21-32 MMOL/L Anion Gap 8 5-14 MMOL/L Blood Urea Nitrogen 9 7-18 MG/DL Creatinine 0.82 0.60-1.30 MG/DL Estimat Glomerular Filtration Rate > 60 BUN/Creatinine Ratio 11 Glucose Level 95 70-105 MG/DL Calcium Level 8.5 8.5-10.1 MG/DL Total Bilirubin 0.2 0.1-1.0 MG/DL Aspartate Amino Transf (AST/SGOT) 17 5-34 U/L Alanine Aminotransferase (ALT/SGPT) 11 0-55 U/L Alkaline Phosphatase 76 40-136 U/L Total Protein 6.3 L 6.4-8.2 GM/DL Albumin 3.8 3.2-4.5 GM/DL Lipase 9 8-78 U/L My Orders Orders - NOBLE TOMAS APRN Cbc With Automated Diff (12/15/17 16:13) Comprehensive Metabolic Panel (12/15/17 16:13) Lipase (12/15/17 16:13) Ua Culture If Indicated (12/15/17 16:13) Ct Chest/Abdomen/Pelvis W (12/15/17 16:13) Saline Lock/Iv-Start (12/15/17 16:36) Ondansetron Injection (Zofran Injectio (12/15/17 16:45) Fentanyl Injection (Sublimaze Injection (12/15/17 17:45) Fentanyl Injection (Sublimaze Injection (12/15/17 17:33) Urine Culture (12/15/17 17:30) Ceftriaxone Injection (Rocephin Injectio (12/15/17 18:15) Iohexol Injection (Omnipaque 350 Mg/Ml 1 (12/15/17 18:15) Ns (Ivpb) (Sodium Chloride 0.9% Ivpb Bag (12/15/17 18:15) Medications Given in ED Current Medications Medications Dose Ordered Sig/Matt Route Start Time Stop Time Status Last Admin Dose Admin Ceftriaxone Sodium 1000 mg/ Sodium Chloride 50 ml @ 100 mls/hr ONCE ONCE IV 12/15/17 18:15 12/15/17 18:44 DC 12/15/17 18:39 100 MLS/HR Fentanyl Citrate 50 mcg ONCE ONCE IVP 12/15/17 17:45 12/15/17 17:46 DC 12/15/17 17:39 50 MCG Iohexol 100 ml ONCE ONCE IV 12/15/17 18:15 12/15/17 18:17 DC 12/15/17 18:21 100 ML Ondansetron HCl 8 mg ONCE ONCE IVP 12/15/17 16:45 12/15/17 16:46 DC 12/15/17 17:38 8 MG Sodium Chloride 100 ml ONCE ONCE IV 12/15/17 18:15 12/15/17 18:17 DC 12/15/17 18:21 100 ML Vital Signs/I&O Vital Sign - Last 12Hours 12/15/17 16:05 Temp 99.7 Pulse 83 B/P (MAP) 117/75 (89) Pulse Ox 98 O2 Delivery Room Air Capillary Refill : Less Than 3 Seconds Blood Pressure Mean: 89 Departure Impression Impression: Primary Impression: Urinary tract infection Additional Impression: Abdominal cramping Disposition: 01 HOME, SELF-CARE Condition: Stable Departure-Patient Inst. Decision time for Depature: 19:08 Referrals: MONICA SIDDIQUI DO (PCP/Family) Primary Care Physician Patient Instructions: Urinary Tract Infection, Adult (DC) Add. Discharge Instructions: 1. Take antibiotics as directed 2. Return to ER for any concerns 3. Follow-up with doctor this week for recheck. All discharge instructions reviewed with patient and/or family. Voiced understanding. Scripts Dicyclomine HCl (Dicyclomine HCl) 10 Mg Capsule 10 MG PO QID, #28 CAP . Prov: NOBLE TOMAS APRN 12/15/17 Sulfamethoxazole/Trimethoprim (Bactrim Ds Tablet) 1 Each Tablet 1 EACH PO BID, #14 TAB . Prov: NOBLE TOMAS APRN 12/15/17 NOBLE TOMAS APRN Dec 15, 2017 16:34
[2017-12-15] MEDS ORDERED: ONDANSETRON 4 MG/2 ML (SDV) Z0FRAN IVP ONE (16:45)
[2017-12-15] MEDS ORDERED: fentaNYL INJECTION 100 MCG/2 ML AMP ONE (17:33)
[2017-12-15] MEDS ORDERED: fentaNYL INJECTION 100 MCG/2 ML AMP IVP ONE (17:45)
[2017-12-15 17:46] LABS: BASOPHILS % (AUTO) 0 % (0-10); EOSINOPHILS # (AUTO) 0.1 10^3/uL (0.0-0.3); EOSINOPHILS % (AUTO) 1 % (0-10); HEMATOCRIT 37 % (35-52); HEMOGLOBIN 12.9 G/DL (11.5-16.0); LYMPHOCYTES # (AUTO) 3.2 X 10^3 (1.0-4.0); LYMPHOCYTES % (AUTO) 33 % (12-44); MEAN CORPUSCULAR HEMOGLOBIN 33 PG (25-34); MEAN CORPUSCULAR HGB CONC 35 G/DL (32-36); MEAN CORPUSCULAR VOLUME 93 FL (80-99); MEAN PLATELET VOLUME 9.5 FL (7.4-10.4); MONOCYTES # (AUTO) 0.5 X 10^3 (0.0-1.0); MONOCYTES % (AUTO) 5 % (0-12); NEUTROPHILS # (AUTO) 5.9 X 10^3 (1.8-7.8); NEUTROPHILS % (AUTO) 61 % (42-75); PLATELET COUNT 296 10^3/uL (130-400); RED BLOOD COUNT 3.94 10^6/uL (4.35-5.85); RED CELL DISTRIBUTION WIDTH 13.1 % (10.0-14.5); WHITE BLOOD COUNT 9.8 10^3/uL (4.3-11.0)
[2017-12-15 17:47] LABS: BILIRUBIN,URINE NEGATIVE (NEGATIVE); CLARITY,URINE CLEAR; COLOR,URINE YELLOW; GLUCOSE, URINE (UA) NEGATIVE (NEGATIVE); KETONES,URINE NEGATIVE (NEGATIVE); LEUKOCYTE ESTERASE ,URINE 2+ (NEGATIVE); NITRITE,URINE NEGATIVE (NEGATIVE); PH,URINE 6 (5-9); PROTEIN,URINE NEGATIVE (NEGATIVE); UROBILINOGEN,URINE 1 MG/DL (NORMAL)
[2017-12-15 17:57] LABS: BACTERIA,URINE MODERATE /HPF
[2017-12-15 18:10] LABS: ALANINE AMINOTRANSFERASE 11 U/L (0-55); ALBUMIN 3.8 GM/DL (3.2-4.5); ALKALINE PHOSPHATASE 76 U/L (40-136); BILIRUBIN,TOTAL 0.2 MG/DL (0.1-1.0); BUN/CREATININE RATIO 11; CALCIUM 8.5 MG/DL (8.5-10.1); CARBON DIOXIDE 23 MMOL/L (21-32); CHLORIDE 108 MMOL/L (98-107); CREATININE SERUM 0.82 MG/DL (0.60-1.30); GFR ESTIMATED > 60; GLUCOSE 95 MG/DL (70-105); LIPASE 9 U/L (8-78); POTASSIUM 4.2 MMOL/L (3.6-5.0); SODIUM 139 MMOL/L (135-145); TOTAL PROTEIN 6.3 GM/DL (6.4-8.2)
[2017-12-15] MEDS ORDERED: IOHEXOL 350 MG/ML 100 ML (OMNIPAQUE 350) VIAL IV ONE (18:15)
[2017-12-15] MEDS ORDERED: cefTRIAXone INJECTION 1,000 MG in NS (IVPB) 50 ML IV ONE (18:15)
[2017-12-15] MEDS ORDERED: NS 100 ML (IVPB) BAG IV ONE (18:15)
--- NOTE | 2017-12-15 19:05 | Diagnostic Imaging Report ---
PROCEDURE: CT chest, abdomen, and pelvis with contrast. TECHNIQUE: Multiple contiguous axial images were obtained through the chest, abdomen, and pelvis after the administration of intravenous contrast. INDICATION: Nausea, emesis with pain at the level of chest wall port. CT CHEST: There is a subcentimeter low-density nodule in the left lobe of the thyroid gland. This was not seen on the previous study of 05/28/2017. Otherwise, no mediastinal abnormality is identified. The lungs are clear. There is no evidence of consolidation or significant pleural fluid. Small lymph nodes are seen in the mediastinum without pathologic adenopathy detected. Left anterior chest wall port is in place without evidence of surrounding hematoma or fluid collection. Catheter tip reaches the upper aspect of the right atrium. There is no significant pleural fluid or pericardial effusion. IMPRESSION: No acute abnormality is seen in the thorax. There is a subcentimeter low-density nodule in the inferior pole of the left lobe of the thyroid gland which could be further assessed on followup ultrasound imaging. CT ABDOMEN / PELVIS: COMPARISON is made to study of 05/28/2017. No focal hepatic or splenic abnormality is identified. There is low-density throughout the pancreas which may due to fatty infiltration. There is also probable mild pancreatic ductal dilatation. No localized mass or inflammation is seen. Adrenal glands are unremarkable. Dominant exophytic cyst in the lower pole of the left kidney has not significantly changed. There is no free fluid in the abdomen or pelvis. There is mild aortoiliac atherosclerotic calcification. Evaluation of the bladder is limited without intravenous contrast. There is questionable bladder wall thickening anteriorly. Calcification to the left of the bladder base is not significantly changed and may represent a phlebolith. IMPRESSION: No definite acute abnormality is identified although there is questionable anti-dependent bladder wall thickening. Urinalysis may be of value. Dictated by: Dictated on workstation # [id number]
[2017-12-15] MEDS ORDERED: SULF1TAB35 PO ×2 (19:09→19:24)
[2017-12-15] MEDS ORDERED: DICY10CA12 PO ×2 (19:15→19:24)
[2017-12-15 19:25] VITALS: BP 117/75
== END 2017-12-15 19:26 | disposition home or self-care (01) ==
LOC: EDUNIT# 15:35 → ER 15:37
DX: N39.0 Urinary tract infection, site not specified (principal); F32.9 Major depressive disorder, single episode, unspecified; F20.9 Schizophrenia, unspecified; J44.9 Chronic obstructive pulmonary disease, unspecified; G40.909 Epilepsy, unspecified, not intractable, without status epilepticus; G43.909 Migraine, unspecified, not intractable, without status migrainosus; F43.10 Post-traumatic stress disorder, unspecified; G47.9 Sleep disorder, unspecified; K21.9 Gastro-esophageal reflux disease without esophagitis; F17.210 Nicotine dependence, cigarettes, uncomplicated; Z85.3 Personal history of malignant neoplasm of breast; Z85.43 Personal history of malignant neoplasm of ovary; Z92.21 Personal history of antineoplastic chemotherapy; Z90.710 Acquired absence of both cervix and uterus; Z95.5 Presence of coronary angioplasty implant and graft; Z88.6 Allergy status to analgesic agent; Z90.49 Acquired absence of other specified parts of digestive tract; Z87.01 Personal history of pneumonia (recurrent); Z95.828 Presence of other vascular implants and grafts
CPT/HCPCS: 36415; 71260; 74177; 80053; 81000; 83690; 85025; 87088; 87186

== ENCOUNTER 2018-05-05 08:57 | Outpatient (CLI) | payer MEDICAID ==
[~2018-05-05] VITALS: Ht 152.4 cm; Wt 52.2 kg
[~2018-05-05 08:57] MED LIST changes: +DICY10CA12 PO; -ROSU10TA26 PO; +ROSU10TA27 PO; +TRAZ-190 PO; -TRAZ100T92 PO
[2018-05-05] MEDS ORDERED: PANT40TA3 PO (13:02)
[2018-05-05] MEDS ORDERED: DIAZ5TAB PO (13:02)
[2018-05-05] MEDS ORDERED: GABA-488 PO (13:02)
[2018-05-05] MEDS ORDERED: ESCI10TA55 PO (13:02)
[2018-05-05] MEDS ORDERED: TRAM50TA2 PO (13:02)
[2018-05-05] MEDS ORDERED: LEVE500T6 PO (13:02)
== END 2018-05-05 13:03 | disposition home or self-care (01) ==
LOC: PREOP 08:57
PROVIDERS: ATTEND Internal Medicine
DX: Z01.818 Encounter for other preprocedural examination (principal)

== ENCOUNTER 2018-05-08 08:47 | Day surgery (SDC) | payer MEDICAID ==
--- NOTE | 2018-05-06 17:32 | HISTORY AND PHYSICAL ---
DATE OF SERVICE: COLONOSCOPY HISTORY AND PHYSICAL DATE OF ADMISSION: HISTORY OF PRESENT ILLNESS: The patient is a 58-year-old white female referred by Dr. Saldivar from [place] for screening colonoscopy. She is deemed to be of higher than average risk as she reports her father was diagnosed with colon cancer. She is an extremely poor historian with reported history of bipolar 1 disorder, who was unable to give me any other information about her father's age, diagnosis or any other medical history. She reports one other colonoscopy many years ago performed by Dr. Conti and she is not aware as to whether or not she had any polyps or any other problems at that time. She denies any bowel habit change, abdominal pain, bright red blood, melena or change in weight. 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 She also reports history of reflux disease, it is well controlled on Dexilant lot as long as she takes her medication. She is not aware of any family history for upper GI tract malignancy and denies dysphagia, chronic sore throat problems or significant cough. MEDICATIONS: She is on multiple medications including Valium 5 mg daily, trazodone 100 mg daily, Zofran 8 mg q.6 hours p.r.n. nausea, tramadol 50 mg, cetirizine 10 mg daily, Seroquel 100 mg daily, escitalopram 10 mg daily, gabapentin 300 mg b.i.d., Requip 1 mg morning, 1 mg in the afternoon and 3 mg at bedtime, Pristiq 100 mg daily, potassium 10 mEq daily, Dexilant 60 mg daily, amlodipine 10 mg daily and Ambien 10 mg at bedtime. She has very difficult IV access and for this reason has had an Infusaport placed. She reportedly had a past history of pulmonary embolism in the left lung and had a stent placed. It is not clear as to whether this is cardiac or whether she is describing a caval filter. It was greater than 5 years ago. SOCIAL HISTORY: She reports no significant past drinking history, does have at least a 30+ pack year smoking history, currently reporting about five cigarettes per day. PHYSICAL EXAMINATION: GENERAL: Reveals a very anxious white female, difficult to keep on track. She does answer questions appropriately, but is extremely anxious about having underlying colonoscopy and all of that entails. VITAL SIGNS: Her blood pressure was 120/70. She is roughly 5 feet tall and weighs 115.6 pounds. HEENT: Unremarkable. She is a Mallampati class 2 oropharyngeal configuration. NECK: Revealed no JVD, adenopathy or bruits. CHEST: Clear to auscultation. No coughing was noted during the procedure. Respirations were nonlabored with no evidence for prolonged expiratory phase. CARDIOVASCULAR: Reveals regular rate and rhythm without murmur, S3 or S4. ABDOMEN: Soft, supple without mass or organomegaly. She has some mild left and right lower quadrant abdominal discomfort to palpation without rebound or guarding. Bowel sounds are positive. No distention is noted. The left upper chest wall Infusaport is noted unremarkable in appearance. EXTREMITIES: Reveal no cyanosis, clubbing or edema. ASSESSMENT AND PLAN: The patient is set up for screening colonoscopy on 05/08. Prep instructions with split dose Colyte were given and instructions also given with significant other being present who has been through colonoscopy before. The importance of complying with clear liquid diet was impressed upon the patient. Due to her extreme anxiety, we will consult Anesthesia for Diprivan for safety as well as comfort. With addressing multiple concerns by the patient and the rationale for colonoscopy with review of electronic medical record, over 40 minutes care time spent by myself and another 15 to 20 minutes of staff time. Job ID: [id number] DocumentID: [id number] Dictated Date: 05/05/2018 10:33:01 Safety Leader Date: 05/05/2018 11:10:00 Dictated By: CJ HERNÁNDEZ MD [facility]
[~2018-05-08] VITALS: Ht 152.4 cm; Wt 52.2 kg
[~2018-05-08 08:47] MED LIST changes: +DIAZ5TAB PO; +ESCI10TA55 PO; +GABA-488 PO; +LEVE500T6 PO; +PANT40TA3 PO; +TRAM50TA2 PO
[2018-05-08] MEDS ORDERED: D5 LR IV SOLUTION 1,000 ML IV STA (09:31)
[2018-05-08 09:35] VITALS: BP 113/71
[2018-05-08] MEDS ORDERED: D5 LR IV SOLUTION 1,000 ML IV ONE (09:41)
[2018-05-08] MEDS ORDERED: LIDOCAINE JELLY 2% (XYLOCAINE) 5 ML TUBE MM PRN (09:45)
--- NOTE | 2018-05-08 09:48 | Pre-Op Note & Conscious Sedat ---
Pre-Operative Progress Note H&P Reviewed The H&P was reviewed, patient examined and no changes noted. Date H&P Reviewed: May 08, 2018 Time H&P Reviewed: 09:47 Conscious Sedation Pre-Proced ASA Class: 3 Airway Mallampati Classification: (washoe appropriate class) I. II. III, IV Lungs Heart ASA score ASA 1: a normal healthy patient ASA 2: a patient with a mild systemic disease (mid diabetes, controlled hypertension, obesity ASA 3: a patient with a severe systemic disease that limits activity (angina , COPD, prior Myocardial infarction) ASA 4: a patient with an incapacitating disease that is a constant threat to life (CHF, renal failure) ASA 5: a moribund patient not expected to survive 24 hrs. (ruptured aneurysm) ASA 6: a declared brain patient whose organs are being harvested. For emergent operations, add the letter E after the classification Grade 2 Sedation Plan: Analgesia, Amnesia, Plan communicated to team members, Discussed options with patient/fam, Discussed risks with patient/fam Note The patient is an appropriate candidate to undergo the planned procedure, sedation, and anesthesia. The patient immediately re-assessed prior to indication. CJ HERNÁNDEZ MD May 08, 2018 09:48
[2018-05-08] MEDS ORDERED: LIDOCAINE JELLY 2% (XYLOCAINE) 5 ML TUBE ONE (10:37)
[2018-05-08] MEDS ORDERED: MIDAZOLAM 2 MG/2 ML (VERSED) VIAL ONE (10:44)
[2018-05-08] MEDS ORDERED: proPOfol 200 MG/20 ML (DIPRIVAN) VIAL IV ONE ×2 (10:44→11:12)
[2018-05-08 11:50] VITALS: BP 125/60
--- NOTE | 2018-05-08 12:16 | Anesthesia-General Post-Op ---
MAC Patient Condition Mental Status/LOC: Same as Preop Cardiovascular: Satisfactory Nausea/Vomiting: Absent Respiratory: Satisfactory Pain: Controlled Complications: Absent Post Op Complications Complications None Follow Up Care/Instructions Patient Instructions None needed. Anesthesiology Discharge Order Discharge Order Patient is doing well, no complaints, stable vital signs, no apparent adverse anesthesia problems. No complications reported per nursing. TREMAINE FOSTER CRNA May 08, 2018 12:16
[2018-05-08 12:20] VITALS: BP 106/64
[2018-05-08 12:46] VITALS: BP 106/64
--- NOTE | 2018-05-08 18:35 | OPERATIVE REPORT ---
DATE OF SERVICE: COLONOSCOPY SUMMARY REFERRING PHYSICIAN: Dr. Saldivar from [place], [place]. INDICATION FOR THE PROCEDURE: Screening colonoscopy. DESCRIPTION OF PROCEDURE: The patient was placed in left lateral decubitus position. Digital rectal evaluation was performed. Anal sphincter tone was normal and the perianal reflex was intact. No abnormalities, no additional inspection of the anal canal or distal rectal vault. The colonoscope was then inserted into the rectum under direct visualization and advanced to the cecum. The cecum was identified by identification of the ileocecal valve and cecal strap. Photographic documentation was obtained. Careful inspection was made as the colonoscope was withdrawn. FINDINGS: There was no evidence for internal or external hemorrhoids and the rectum was unremarkable. The sigmoid was unremarkable as well with no evidence for diverticular disease. Present in the splenic flexure was a diminutive 4 mm sessile polyp. It was photographed and biopsied and ablated and submitted for histopathology. A 6 mm mid transverse sessile polyp was noted with uniform mucosal features. It was biopsied and ablated with no subsequent blood loss as well using a hot forceps. The remainder of the transverse colon was unremarkable. Present in the mid descending colon was a diminutive 5 mm sessile polyp. It was biopsied and ablated with no subsequent blood loss as well. The remainder of the transverse colon, hepatic flexure, ascending colon and cecum were unremarkable. ASSESSMENT: Three diminutive sessile polyps were removed today locations as noted above. Considering reported family history of colon cancer, we would advocate repeat surveillance colonoscopy in 3 to 5 years as long as there are no surprises on histopathology report which should be forthcoming. No other abnormalities were noted on today's procedure. I thank you for the referral. Job ID: [id number] DocumentID: [id number] Dictated Date: 05/08/2018 12:03:52 Wet Sander Date: 05/08/2018 18:35:04 Dictated By: CJ HERNÁNDEZ MD MTDD
== END 2018-05-08 12:50 | disposition home or self-care (01) ==
LOC: ENDO 08:47
PROVIDERS: ATTEND Internal Medicine
DX: Z12.11 Encounter for screening for malignant neoplasm of colon (principal); D12.3 Benign neoplasm of transverse colon; D12.4 Benign neoplasm of descending colon; K63.5 Polyp of colon; Z80.0 Family history of malignant neoplasm of digestive organs; I25.10 Atherosclerotic heart disease of native coronary artery without angina pectoris; I10 Essential (primary) hypertension; J44.9 Chronic obstructive pulmonary disease, unspecified; F17.218 Nicotine dependence, cigarettes, with other nicotine-induced disorders; G47.33 Obstructive sleep apnea (adult) (pediatric); R56.9 Unspecified convulsions; Z95.5 Presence of coronary angioplasty implant and graft; Z79.899 Other long term (current) drug therapy

== ENCOUNTER → 2018-09-22 | Outpatient (CLI) | payer MEDICAID ==
[~2018-09-22] VITALS: Ht 152.4 cm; Wt 52.2 kg
[~2018-09-22] MED LIST changes: -AMLO10TA2; -AMLO10TA2 PO; +AMLO10TA6; +AMLO10TA6 PO; +HEParin (CENTRAL IV FLUSH) 500 UNIT/5 ML SYR ONE; -ROPI3TAB2 PO; +ROPI3TAB4 PO
[2018-09-22 14:40] VITALS: BP 141/82
== END ==
LOC: SDC 14:27
PROVIDERS: ATTEND Family Medicine
DX: Z45.2 Encounter for adjustment and management of vascular access device (principal)
CPT/HCPCS: 96523

== ENCOUNTER → 2018-09-23 | Outpatient (CLI) | payer MEDICAID ==
[~2018-09-23] MED LIST changes: -HEParin (CENTRAL IV FLUSH) 500 UNIT/5 ML SYR ONE
--- NOTE | 2018-09-24 10:58 | Diagnostic Imaging Report ---
Indication: Routine screening. Comparison is made with prior mammogram from 03/19/2016 and 08/31/2014. 2-D and 3-D bilateral screening mammography was performed with CAD. Both breasts are heterogeneously dense, limiting the sensitivity of mammography. Biopsy clip in the outer right breast is again seen. Numerous calcifications adjacent to the clip are similar to prior mammogram from 2016. No new mass or malignant-appearing microcalcifications are identified. The axillae are unremarkable. Impression: BI-RADS category 2 No mammographic features suspicious for malignancy are identified. ACR BI-RADS Category 2: Benign findings. Result letter will be mailed to the patient. Note: At least 10% of breast cancer is not imaged by mammography. Dictated by: Dictated on workstation # [id number]
== END ==
LOC: RAD 15:01
PROVIDERS: ATTEND Family Medicine
DX: Z12.31 Encounter for screening mammogram for malignant neoplasm of breast (principal)
CPT/HCPCS: 77067

== ENCOUNTER 2018-09-24 18:40 | Emergency (ER) | payer MEDICAID ==
[~2018-09-24] VITALS: Ht 152.4 cm; Wt 45.4 kg
[2018-09-24 18:41] VITALS: BP 132/72
--- NOTE | 2018-09-24 18:52 | ED Chest Pain ---
General Stated Complaint: CP Source: patient, EMS Exam Limitations: no limitations History of Present Illness Date Seen by Provider: Sep 24, 2018 Time Seen by Provider: 18:49 Initial Comments To ER per EMS from home with reports of chest pain that began a few days ago. She states she is allergic to aspirin so that was not given. She did receive one nitroglycerin in route to the hospital. The pain is in the center of her chest and is worse with deep breathing or talking. She also states that she is unable to talk because of pain in her jaws which has been present for several weeks. She believes this is from new dentures that are not fitting so she is not wearing them. Timing/Duration: 2-3 days Severity/Quality: moderate Location: central Radiation: jaw Prior CP/Workup: angina ASA po POWER TRUCK DRIVER: No NTG SL POWER TRUCK DRIVER: No Associated Symptoms: No nausea/vomiting (And) Allergies and Home Medications Allergies Coded Allergies: aspirin (Verified Allergy, Unknown, HIVES, 07/30/16) Home Medications Albuterol Sulfate 1 Puff Puff, 2 PUFF INH Q4H PRN for SHORTNESS OF BREATH, ( Reported) Alprazolam 1 Mg Tablet, 1 MG PO BID PRN for ANXIETY, (Reported) Amlodipine Besylate 10 Mg Tablet, 10 MG PO DAILY, (Reported) Cetirizine HCl 10 Mg Tablet, 10 MG PO DAILY, (Reported) Desvenlafaxine Succinate 100 Mg Tab.er.24h, 100 MG PO HS, (Reported) Dexlansoprazole 60 Mg Cap.dr.bp, 60 MG PO DAILY, (Reported) Diazepam 5 Mg Tablet, 5 MG PO UD PRN for SEIZURE ACTIVITY, (Reported) Escitalopram Oxalate 10 Mg Tablet, 10 MG PO DAILY, (Reported) Gabapentin 300 Mg Capsule, 300 MG PO TID, (Reported) Levetiracetam 500 Mg Tablet, 500 MG PO BID, (Reported) Ondansetron HCl 8 Mg Tablet, 8 MG PO TID PRN for NAUSEA/VOMITING-1ST LINE, ( Reported) Pantoprazole Sodium 40 Mg Tablet.dr, 40 MG PO DAILY, (Reported) Potassium Chloride 10 Meq Tablet.er, 10 MEQ PO BID, (Reported) Quetiapine Fumarate 100 Mg Tablet, 100 MG PO BID, (Reported) Ropinirole HCl 1 Mg Tablet, 1 MG PO BID PRN for RESTLESS LEGS, (Reported) Ropinirole HCl 3 Mg Tablet, 3 MG PO HS, (Reported) Tramadol HCl 50 Mg Tablet, 50 MG PO Q6H PRN for PAIN-MILD, (Reported) Trazodone HCl 100 Mg Tablet, 200 MG PO HS, (Reported) TAKES 2 (100MG) TABLETS Zolpidem Tartrate 10 Mg Tablet, 10 MG PO HS, (Reported) Patient Home Medication List Home Medication List Reviewed: Yes ( 28 and) Review of Systems Review of Systems Constitutional: see HPI; No chills, No fever EENTM: No Symptoms Reported, Other (Jaw pain) Respiratory: See HPI, Cough Cardiovascular: See HPI, Chest Pain Gastrointestinal: See HPI; Denies Abdominal Pain, Denies Nausea Genitourinary: No Symptoms Reported Musculoskeletal: no symptoms reported Skin: no symptoms reported Psychiatric/Neurological: No Symptoms Reported Endocrine: No Symptoms Reported Hematologic/Lymphatic: No Symptoms Reported Past Krgouxb-Lcbuax-Kskqwb Hx Patient Social History Drug of Choice: MARIJUANA Type Used: Cigarettes 2nd Hand Smoke Exposure: Yes Recent Hopitalizations: No Immunizations Up To Date Tetanus Booster (TDap): Unknown PED Vaccines UTD: Yes Date of Pneumonia Vaccine: Jul 27, 2006 Seasonal Allergies Seasonal Allergies: No Past Medical History Surgeries: Yes (c/s x4, port, blood clot in left lung-stent placed, ) Gallbladder, Hysterectomy Respiratory: Yes Sleep Apnea, COPD Currently Using CPAP: No Currently Using BIPAP: No Cardiac: Yes (CARDIAC STENTS ) Heart Murmur, Hypertension Neurological: Yes Headaches /Migraines, Seizure Disorder 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 Disorders: Yes (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 Genitourinary: No Gastrointestinal: Yes Gastroesophageal Reflux, Chronic Constipation Musculoskeletal: Yes (muscle pain) Osteoporosis, Arthritis Endocrine: No HEENT: Yes Cataract Cancer: Yes Breast, Ovarian, Uterine Did You Recieve Any Treatments: Yes What Type of Treatment Did You: Chemotherapy, Surgical Intervention Psychosocial: No Sleep Difficulties, PTSD, Schizophrenia, Depression Integumentary: No Blood Disorders: Yes (hx of anemia) Adverse Reaction/Blood Tranf: No Family Medical History Cardiovascular disease 19 FATHER 19 MOTHER Cataracts Completed stroke 19 FATHER 19 MOTHER G8 BROTHER (X3) Diabetes mellitus 19 FATHER 19 MOTHER G8 BROTHER BROTHER FH: breast cancer 19 MOTHER Hypertension 19 FATHER 19 MOTHER Myocardial infarction G8 BROTHER No Pertinent Family Hx Physical Exam Vital Signs Vital Signs - First Documented 09/24/18 18:41 Temp 98.7 Pulse 73 Resp 14 B/P (MAP) 132/72 (92) Pulse Ox 99 O2 Delivery Room Air Capillary Refill : Height, Weight, BMI Height: 5'0.00" Weight: 115lbs. 0.0oz. 52.502615mc; 22.5 BMI Method:Stated General Appearance: No Apparent Distress, WD/WN, Other (she whispers short phrases, she doesn't provide any history of present illness. When asked where her jaw hurts she points to her entire face using her fist instead of her pointer finger as one would expect. There is no bruising, no swelling. Speech is stuttering.) HEENT: PERRL/EOMI, TMs Normal Respiratory: No Accessory Muscle Use, No Respiratory Distress Gastrointestinal: Normal Bowel Sounds, Non Tender, Soft Extremity: Normal Capillary Refill, Normal Inspection, Other (she moves all extremities) Neurologic/Psychiatric: Alert, Oriented x3 Progress/Results/Core Measures Results/Orders Lab Results Laboratory Tests Test 09/24/18 19:00 09/24/18 20:13 09/24/18 20:17 09/24/18 22:00 Range/Units White Blood Count 10.4 4.3-11.0 10^3/uL Red Blood Count 3.87 L 4.35-5.85 10^6/uL Hemoglobin 12.1 11.5-16.0 G/DL Hematocrit 36 35-52 % Mean Corpuscular Volume 93 80-99 FL Mean Corpuscular Hemoglobin 31 25-34 PG Mean Corpuscular Hemoglobin Concent 34 32-36 G/DL Red Cell Distribution Width 13.7 10.0-14.5 % Platelet Count 380 130-400 10^3/uL Mean Platelet Volume 8.8 7.4-10.4 FL Neutrophils (%) (Auto) 68 42-75 % Lymphocytes (%) (Auto) 24 12-44 % Monocytes (%) (Auto) 6 0-12 % Eosinophils (%) (Auto) 2 0-10 % Basophils (%) (Auto) 1 0-10 % Neutrophils # (Auto) 7.1 1.8-7.8 X 10^3 Lymphocytes # (Auto) 2.6 1.0-4.0 X 10^3 Monocytes # (Auto) 0.6 0.0-1.0 X 10^3 Eosinophils # (Auto) 0.2 0.0-0.3 10^3/uL Basophils # (Auto) 0.1 0.0-0.1 10^3/uL Prothrombin Time 14.7 12.2-14.7 SEC INR Comment 1.2 0.8-1.4 Activated Partial Thromboplast Time > 200 *H 37 H 24-35 SEC Sodium Level 137 135-145 MMOL/L Potassium Level 3.7 3.6-5.0 MMOL/L Chloride Level 104 98-107 MMOL/L Carbon Dioxide Level 21 21-32 MMOL/L Anion Gap 12 5-14 MMOL/L Blood Urea Nitrogen 6 L 7-18 MG/DL Creatinine 0.63 0.60-1.30 MG/DL Estimat Glomerular Filtration Rate > 60 BUN/Creatinine Ratio 10 Glucose Level 97 70-105 MG/DL Calcium Level 9.0 8.5-10.1 MG/DL Corrected Calcium 8.9 8.5-10.1 MG/DL Magnesium Level 1.5 L 1.8-2.4 MG/DL Total Bilirubin 0.4 0.1-1.0 MG/DL Aspartate Amino Transf (AST/SGOT) 17 5-34 U/L Alanine Aminotransferase (ALT/SGPT) 19 0-55 U/L Alkaline Phosphatase 103 40-136 U/L Myoglobin 21.3 10.0-92.0 NG/ML Troponin I < 0.30 <0.30 NG/ML B-Type Natriuretic Peptide 60.5 <100.0 PG/ML Total Protein 6.7 6.4-8.2 GM/DL Albumin 4.1 3.2-4.5 GM/DL Lipase 9 8-78 U/L Serum Alcohol < 10 <10 MG/DL Urine Opiates Screen NEGATIVE NEGATIVE Urine Oxycodone Screen NEGATIVE NEGATIVE Urine Methadone Screen NEGATIVE NEGATIVE Urine Propoxyphene Screen NEGATIVE NEGATIVE Urine Barbiturates Screen NEGATIVE NEGATIVE Ur Tricyclic Antidepressants Screen POSITIVE H NEGATIVE Urine Phencyclidine Screen NEGATIVE NEGATIVE Urine Amphetamines Screen NEGATIVE NEGATIVE Urine Methamphetamines Screen NEGATIVE NEGATIVE Urine Benzodiazepines Screen POSITIVE H NEGATIVE Urine Cocaine Screen NEGATIVE NEGATIVE Urine Cannabinoids Screen NEGATIVE NEGATIVE My Orders Orders - NOBLE TOMAS APRN Cbc With Automated Diff (09/24/18 18:48) Magnesium (09/24/18 18:48) Chest 1 View, Ap/Pa Only (09/24/18 18:48) Ekg Tracing (09/24/18 18:48) Cardiac Profile 1 (09/24/18 18:48) Comprehensive Metabolic Panel (09/24/18 18:48) Myoglobin Serum (09/24/18 18:48) Protime With Inr (09/24/18 18:48) Partial Thromboplastin Time (09/24/18 18:48) O2 (09/24/18 18:48) Monitor-Rhythm Ecg Trace Only (09/24/18 18:48) Lipid Panel (09/25/18 06:00) Saline Lock/Iv-Start (09/24/18 18:48) Lipase (09/24/18 18:48) BNP (09/24/18 18:48) Ketorolac Injection (Toradol Injection) (09/24/18 19:00) Ct Head Wo (09/24/18 18:57) Drug Screen Stat (Urine) (09/24/18 18:57) Alcohol (09/24/18 18:57) Olanzapine Orally Dissolve Tab (Zyprexa (09/24/18 19:30) Partial Thromboplastin Time (09/24/18 20:11) Troponin I (09/24/18 22:13) Medications Given in ED Current Medications Medications Dose Ordered Sig/Matt Route Start Time Stop Time Status Last Admin Dose Admin Olanzapine 5 mg ONCE ONCE PO 09/24/18 19:30 09/24/18 19:31 DC 09/24/18 19:31 5 MG Vital Signs/I&O 09/24/18 09/24/18 18:41 18:41 Temp 98.7 Pulse 73 Resp 14 B/P (MAP) 132/72 (92) Pulse Ox 99 O2 Delivery Room Air Room Air Diagnostic Imaging Diagonstic Imaging: Xray Comments NAME: HELDER RHODES [facility] REC#: [id number] PT STATUS: REG ER : 1960 PHYSICIAN: NOBLE TOMAS APRN ADMIT DATE: 09/24/18/ER Draft Date of Exam:09/24/18 CHEST 1 VIEW, AP/PA ONLY INDICATION: Chest pain. Comparison with 05/28/2017. FINDINGS: Portable chest shows lungs to be well-aerated. There has been increase in interstitial infiltrate bilaterally since previous exam. No consolidated infiltrates have developed. The heart is not enlarged. No pleural effusions or pneumothorax. Port-A-Cath on the left remains unchanged. No bony abnormalities. IMPRESSION: Increasing bilateral interstitial infiltrates when compared with previous exam. Dictated on workstation # [id number] Dict: 09/24/181902 Trans: 09/24/181905 [facility] [phone] Interpreted by: VENITA BARRETO MD Electronically signed by: Departure Communication (Admissions) 1938-patient is whispering phrases about God and stating "cover up my nakedness for God". She had a similar presentation and admission in 2017 for psychiatric illness refused to talk and ultimately left after being admitted. I suspect today's symptoms/presentation is psychiatric in nature. Zyprexa ordered. 2221- nursing staff reports that patient left AGAINST MEDICAL ADVICE while I was suturing another patient. Impression Primary Impression: Left against medical advice Disposition: 07 AGAINST MEDICAL ADVICE Condition: Against Medical Advice Departure-Patient Inst. Referrals: NO,LOCAL PHYSICIAN (PCP/Family) Primary Care Physician NOBLE TOMAS APRN Sep 24, 2018 18:52
[2018-09-24] MEDS ORDERED: KETOROLAC 30 MG/ML VIAL IVP ONE (19:00)
--- NOTE | 2018-09-24 19:07 | Diagnostic Imaging Report ---
INDICATION: Chest pain. Comparison with 05/28/2017. FINDINGS: Portable chest shows lungs to be well-aerated. There has been increase in interstitial infiltrate bilaterally since previous exam. No consolidated infiltrates have developed. The heart is not enlarged. No pleural effusions or pneumothorax. Port-A-Cath on the left remains unchanged. No bony abnormalities. IMPRESSION: Increasing bilateral interstitial infiltrates when compared with previous exam. Dictated by: Dictated on workstation # [id number]
[2018-09-24 19:09] LABS: BASOPHILS # (AUTO) 0.1 10^3/uL (0.0-0.1); BASOPHILS % (AUTO) 1 % (0-10); EOSINOPHILS # (AUTO) 0.2 10^3/uL (0.0-0.3); EOSINOPHILS % (AUTO) 2 % (0-10); HEMATOCRIT 36 % (35-52); HEMOGLOBIN 12.1 G/DL (11.5-16.0); LYMPHOCYTES # (AUTO) 2.6 X 10^3 (1.0-4.0); LYMPHOCYTES % (AUTO) 24 % (12-44); MEAN CORPUSCULAR HEMOGLOBIN 31 PG (25-34); MEAN CORPUSCULAR HGB CONC 34 G/DL (32-36); MEAN CORPUSCULAR VOLUME 93 FL (80-99); MEAN PLATELET VOLUME 8.8 FL (7.4-10.4); MONOCYTES # (AUTO) 0.6 X 10^3 (0.0-1.0); MONOCYTES % (AUTO) 6 % (0-12); NEUTROPHILS # (AUTO) 7.1 X 10^3 (1.8-7.8); NEUTROPHILS % (AUTO) 68 % (42-75); PLATELET COUNT 380 10^3/uL (130-400); RED BLOOD COUNT 3.87 10^6/uL (4.35-5.85); RED CELL DISTRIBUTION WIDTH 13.7 % (10.0-14.5); WHITE BLOOD COUNT 10.4 10^3/uL (4.3-11.0)
--- NOTE | 2018-09-24 19:24 | Diagnostic Imaging Report ---
INDICATION: Weakness. Altered mental status. TECHNIQUE: Routine non contrast-enhanced axial images were obtained from the skull base to the vertex. COMPARISON: 08/08/2017. FINDINGS: The ventricles and cortical sulci are normal in size and contour. There is no midline shift or mass-effect. No acute intra-axial hemorrhage is seen. There are no abnormal areas of increased or decreased density to suggest acute hemorrhage or edema. No extra-axial masses or collections are present. The bony calvarium is intact. The visualized paranasal sinuses are unremarkable. The mastoid air cells are clear. IMPRESSION: No acute intracranial abnormality. No CT evidence of mass, acute infarct or intracranial hemorrhage. Dictated by: Dictated on workstation # [id number]
[2018-09-24] MEDS ORDERED: OLANZapine 5 MG ODT (ZyPREXA ZYDIS) PO ONE (19:30)
[2018-09-24 19:31] LABS: ALANINE AMINOTRANSFERASE 19 U/L (0-55); ALBUMIN 4.1 GM/DL (3.2-4.5); ALKALINE PHOSPHATASE 103 U/L (40-136); BILIRUBIN,TOTAL 0.4 MG/DL (0.1-1.0); BUN/CREATININE RATIO 10; CARBON DIOXIDE 21 MMOL/L (21-32); CHLORIDE 104 MMOL/L (98-107); CREATININE SERUM 0.63 MG/DL (0.60-1.30); GFR ESTIMATED > 60; GLUCOSE 97 MG/DL (70-105); LIPASE 9 U/L (8-78); MAGNESIUM 1.5 MG/DL (1.8-2.4); POTASSIUM 3.7 MMOL/L (3.6-5.0); SODIUM 137 MMOL/L (135-145); TOTAL PROTEIN 6.7 GM/DL (6.4-8.2)
[2018-09-24 19:38] LABS: MYOGLOBIN SERUM 21.3 NG/ML (10.0-92.0)
[2018-09-24 19:40] LABS: INR 1.2 (0.8-1.4); PROTHROMBIN TIME PATIENT 14.7 SEC (12.2-14.7)
[2018-09-24 20:09] LABS: PARTIAL THROMBOPLASTIN TIME > 200 SEC (24-35)
[2018-09-24 20:33] LABS: AMPHETAMINE SCREEN, URINE NEGATIVE (NEGATIVE); BARBITURATE SCREEN URINE NEGATIVE (NEGATIVE); BENZODIAZEPINES SCREEN URINE POSITIVE (NEGATIVE); CANNABINOID SCREEN, URINE NEGATIVE (NEGATIVE); COCAINE SCREEN URINE NEGATIVE (NEGATIVE); METHAMPHETAMINE SCREEN URINE S NEGATIVE (NEGATIVE); OPIATE SCREEN URINE NEGATIVE (NEGATIVE); TRICYCLIC ANTIDEPRESSANTS SCRE POSITIVE (NEGATIVE)
[2018-09-24 20:34] LABS: METHADONE STAT NEGATIVE (NEGATIVE); OXYCODONE STAT NEGATIVE (NEGATIVE); PROPOXYPHENE STAT NEGATIVE (NEGATIVE)
== END 2018-09-24 22:15 | disposition left against medical advice (07) ==
LOC: EDUNIT# 18:40 → ER 18:41
DX: R07.9 Chest pain, unspecified (principal); R41.82 Altered mental status, unspecified; G47.30 Sleep apnea, unspecified; I10 Essential (primary) hypertension; J44.9 Chronic obstructive pulmonary disease, unspecified; G43.909 Migraine, unspecified, not intractable, without status migrainosus; K21.9 Gastro-esophageal reflux disease without esophagitis; M81.0 Age-related osteoporosis without current pathological fracture; F43.10 Post-traumatic stress disorder, unspecified; F20.9 Schizophrenia, unspecified; F32.9 Major depressive disorder, single episode, unspecified; G40.909 Epilepsy, unspecified, not intractable, without status epilepticus; D64.9 Anemia, unspecified; F12.10 Cannabis abuse, uncomplicated; Z77.22 Contact with and (suspected) exposure to environmental tobacco smoke (acute) (chronic); Z80.3 Family history of malignant neoplasm of breast; Z85.42 Personal history of malignant neoplasm of other parts of uterus; Z87.19 Personal history of other diseases of the digestive system; Z82.49 Family history of ischemic heart disease and other diseases of the circulatory system; Z90.710 Acquired absence of both cervix and uterus; Z95.5 Presence of coronary angioplasty implant and graft; Z88.6 Allergy status to analgesic agent; Z79.51 Long term (current) use of inhaled steroids
CPT/HCPCS: 36415; 70450; 71045; 80053; 80306; 80320; 83690; 83735; 83874; 83880; 84484; 85025; 85610; 85730; 93005; 93041

== ENCOUNTER 2019-03-02 23:33 | Emergency (ER) | payer MEDICAID ==
[~2019-03-02] VITALS: Ht 152.4 cm; Wt 45.4 kg
[~2019-03-02 23:33] MED LIST changes: -AMLO10TA6; -AMLO10TA6 PO; +AMLO10TA7; +AMLO10TA7 PO
[2019-03-03] MEDS ORDERED: methylPREDNISolone 125 MG (Solu-MEDROL) VIAL IM ONE
[2019-03-03] MEDS ORDERED: RX-CYCLOBENZAPRINE 10 MG (FLEXERIL) TAB PPK#3 PO STA
[2019-03-03] MEDS ORDERED: METH4TAB PO (00:04)
[2019-03-03] MEDS ORDERED: CYCL10TA9 PO (00:04)
--- NOTE | 2019-03-03 00:04 | ED Back Pain ---
General Chief Complaint: Back Problems Stated Complaint: STRAINED BACK Nursing Triage Note: LOWER BACK PAIN AFTER MOVING COUCH Nursing Sepsis Screen: No Definite Risk Source of Information: Patient (DIFFICULT TO KEEP ON SUBJECT) History of Present Illness Date Seen by Provider: March 02, 2019 Time Seen by Provider: 23:49 Initial Comments PT ARRIVES VIA POV FROM HOME C/O LOWER BACK PAIN STATES SHE HAS CHRONIC BACK PAIN, ESPECIALLY IN LOWER BACK, BUT LAST FRIDAY SHE WAS MOVING A COUCH AROUND IN THE HOUSE AND BACK HAS BEEN HURTING WORSE SINCE THEN HAS NOT SOUGHT CARE UNTIL TODAY TOOK 1 TYLENOL AT 11:00 AM TODAY, OTHERWISE HAS NOT TAKEN ANYTHING FOR PAIN NO RADIATION OF PAIN NO PARESTHESIAS OR MOTOR DEFICITS NO CHANGES IN BOWEL OR BLADDER FUNCTION Other Comments PCP : LUMA LEBRON: DR. SOLORZANO Allergies and Home Medications Allergies Coded Allergies: aspirin (Verified Allergy, Unknown, HIVES, 07/30/16) Home Medications Albuterol Sulfate 1 Puff Puff, 2 PUFF INH Q4H PRN for SHORTNESS OF BREATH, ( Reported) Amlodipine Besylate 10 Mg Tablet, 10 MG PO DAILY, (Reported) Cetirizine HCl 10 Mg Tablet, 10 MG PO DAILY, (Reported) Cyclobenzaprine HCl 10 Mg Tablet, 10 MG PO Q8H Prescribed by: SANDRA PATEL on 03/03/193 Desvenlafaxine Succinate 100 Mg Tab.er.24h, 100 MG PO HS, (Reported) Dexlansoprazole 60 Mg Cap.dr.bp, 60 MG PO DAILY, (Reported) Escitalopram Oxalate 10 Mg Tablet, 10 MG PO DAILY, (Reported) Gabapentin 300 Mg Capsule, 300 MG PO TID, (Reported) Levetiracetam 500 Mg Tablet, 500 MG PO BID, (Reported) Methylprednisolone 4 Mg Tab.ds.pk, 4 MG PO UD Prescribed by: SANDRA PATEL on 03/03/193 Pantoprazole Sodium 40 Mg Tablet.dr, 40 MG PO DAILY, (Reported) Potassium Chloride 10 Meq Tablet.er, 10 MEQ PO BID, (Reported) Quetiapine Fumarate 100 Mg Tablet, 100 MG PO BID, (Reported) Ropinirole HCl 1 Mg Tablet, 1 MG PO BID PRN for RESTLESS LEGS, (Reported) Ropinirole HCl 3 Mg Tablet, 3 MG PO HS, (Reported) Zolpidem Tartrate 10 Mg Tablet, 10 MG PO HS, (Reported) Patient Home Medication List Home Medication List Reviewed: Yes Review of Systems Constitutional: no symptoms reported Respiratory: no symptoms reported Gastrointestinal: no symptoms reported Genitourinary: no symptoms reported Musculoskeletal: see HPI, back pain, other (ALSO STATES SHE INJURED HER RIGHT KNEE ON Friday02/14/19, AND STATES SAW DR. SOLORZANO THAT SAME DAY AND HAD AN MRI THAT SAME DAY AND WAS TOLD SHE HAD TORN LIGAMENTS, NO SURGERY. ONLY TOLD TO WRAP IT. SAW DR. SOLORZANO THE FOLLOWING FRIDAY. RX FOR PAIN PILLS--ONLY #2 PILLS TOTAL WERE GIVEN, PER PT. SHE HAS FINISHED THEM) Past Itaatiu-Hzkwrs-Dttmri Hx Patient Social History Alcohol Use: Denies Use Recreational Drug Use: Yes (THC) Drug of Choice: MARIJUANA Smoking Status: Current Everyday Smoker (1 PPD) Type Used: Cigarettes 2nd Hand Smoke Exposure: Yes Recent Foreign Travel: No Contact w/Someone Who Travel: No Recent Infectious Disease Expo: No Recent Hopitalizations: No Immunizations Up To Date Tetanus Booster (TDap): Unknown PED Vaccines UTD: Yes Date of Pneumonia Vaccine: Jul 27, 2006 Seasonal Allergies Seasonal Allergies: No Past Medical History Surgeries: Yes (c/s x4, port, blood clot in left lung-stent placed,) Cardiac, Coronary Stent, Gallbladder, Hysterectomy Respiratory: Yes Sleep Apnea, COPD Currently Using CPAP: No Currently Using BIPAP: No Cardiac: Yes (CARDIAC STENTS ) Coronary Artery Disease, Heart Murmur, Hypertension Neurological: Yes Headaches /Migraines, Seizure Disorder : No 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 Disorders: Yes (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 Genitourinary: No Gastrointestinal: Yes (nausea,) Gastroesophageal Reflux, Chronic Constipation Musculoskeletal: Yes (muscle pain) Osteoporosis, Arthritis Endocrine: No HEENT: Yes Cataract Cancer: Yes Breast, Ovarian, Uterine Did You Recieve Any Treatments: Yes What Type of Treatment Did You: Chemotherapy, Surgical Intervention Psychosocial: No Sleep Difficulties, PTSD, Schizophrenia, Depression Integumentary: No Blood Disorders: Yes (hx of anemia) Adverse Reaction/Blood Tranf: No Family Medical History Cardiovascular disease 19 FATHER 19 MOTHER Cataracts Completed stroke 19 FATHER 19 MOTHER G8 BROTHER (X3) Diabetes mellitus 19 FATHER 19 MOTHER G8 BROTHER BROTHER FH: breast cancer 19 MOTHER Hypertension 19 FATHER 19 MOTHER Myocardial infarction G8 BROTHER No Pertinent Family Hx Physical Exam Vital Signs Vital Signs - First Documented 03/02/19 23:45 Temp 96.4 Pulse 85 Resp 18 B/P (MAP) 126/86 (99) Pulse Ox 96 O2 Delivery Room Air Capillary Refill : Less Than 3 Seconds Height, Weight, BMI Height: 5'0" Weight: 100lbs. 0.0oz. [id number]; 22.5 BMI Method:Estimated General Appearance: No Apparent Distress, WD/WN, Other (SITTING UPRIGHT, WALKS UPRIGHT AND MOVES WITHOUT DIFFICULTY. CONSTANT MOVEMENTS OF BODY AND MOUTH, CONSTANT LIP LICKING. TALKS NON-STOP, DIFFICULT TO KEEP ON SUBJECT. REEKS OF CIGARETTES. ) Neck: Normal Inspection, Non Tender Cardiovascular: Regular Rate, Rhythm, No Edema, No Murmur, Normal Peripheral Pulses Respiratory: Chest Non Tender, Normal Breath Sounds Gastrointestinal: Non Tender, Soft Back: Other (MILD DIFFUSE LUMBAR AREA TENDERNESS. DTR'S INTACT, BUT LIMITED EXAM ON LEFT DUE TO RECENT PROBLEMS WITH RIGHT KNEE. 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 Norm as Tested Skin: Normal Color, Warm/Dry, Tattoos/Piercings (MUJLTIPLE TATTOOS) Progress/Results/Core Measures Results/Orders My Orders Orders - SANDRA PATEL DO Methylprednisolone Sod Succ (Solu-Medrol (03/03/19 00:00) Rx-Cyclobenzaprine Tablet (Rx-Flexeril T (03/03/19 00:00) Medications Given in ED Current Medications Medications Dose Ordered Sig/Matt Route Start Time Stop Time Status Last Admin Dose Admin Methylprednisolone Sodium Succinate 125 mg ONCE ONCE IM 03/03/19 00:00 03/03/19 00:02 DC 03/03/19 00:25 125 MG Vital Signs/I&O 03/02/19 03/03/19 23:45 00:38 Temp 96.4 97.1 Pulse 85 82 Resp 18 18 B/P (MAP) 126/86 (99) 128/70 (89) Pulse Ox 96 97 O2 Delivery Room Air Room Air Blood Pressure Mean: 99 Progress Progress Note : Progress Note PAIN BEGINNING TO EASE AT DISMISSAL Departure Impression Primary Impression: Acute exacerbation of chronic low back pain Disposition: HOME, SELF-CARE Condition: Stable Departure-Patient Inst. Referrals: PAONI,CESILIA S DO Patient Instructions: MANAGING YOUR CHRONIC PAIN, Low Back Pain (DC), Lumbar Muscle Strain (DC) Add. Discharge Instructions: ALTERNATE ICE AND HEAT TO SORE AREA AT 20 MINUTE INTERVAL NO LIFTING OVER 5 LBS, NO TWISTING OR BENDING AT WAIST THIS WEEK CONTINUE YOUR REGULAR MEDICATIONS PRESCRIBED FOLLOW UP WITH YOUR DR THIS WEEK FOR FURTHER CARE All discharge instructions reviewed with patient and/or family. Voiced understanding. Scripts Cyclobenzaprine HCl (Cyclobenzaprine HCl) 10 Mg Tablet 10 MG PO Q8H, #15 TAB Prov: SANDRA PATEL DO 03/03/19 Methylprednisolone (Medrol) 4 Mg Tab.ds.pk 4 MG PO UD, #1 PKG Prov: SANDRA PATEL DO 03/03/19 SANDRA PATEL DO March 03, 2019 00:04
[2019-03-03 00:38] VITALS: BP 128/70
== END 2019-03-03 00:38 | disposition home or self-care (01) ==
LOC: EDUNIT# 23:33 → ER 23:36
DX: M54.5 Low back pain (principal); G89.29 Other chronic pain; I25.10 Atherosclerotic heart disease of native coronary artery without angina pectoris; I10 Essential (primary) hypertension; G43.909 Migraine, unspecified, not intractable, without status migrainosus; G40.909 Epilepsy, unspecified, not intractable, without status epilepticus; F12.10 Cannabis abuse, uncomplicated; G47.30 Sleep apnea, unspecified; J44.9 Chronic obstructive pulmonary disease, unspecified; M81.0 Age-related osteoporosis without current pathological fracture; F43.10 Post-traumatic stress disorder, unspecified; F20.9 Schizophrenia, unspecified; F32.9 Major depressive disorder, single episode, unspecified; D64.9 Anemia, unspecified; K21.9 Gastro-esophageal reflux disease without esophagitis; F17.210 Nicotine dependence, cigarettes, uncomplicated; Z95.5 Presence of coronary angioplasty implant and graft; Z90.710 Acquired absence of both cervix and uterus; Z85.3 Personal history of malignant neoplasm of breast; Z80.49 Family history of malignant neoplasm of other genital organs; Z82.49 Family history of ischemic heart disease and other diseases of the circulatory system; Z80.3 Family history of malignant neoplasm of breast; Z80.41 Family history of malignant neoplasm of ovary; Z92.21 Personal history of antineoplastic chemotherapy; Z88.6 Allergy status to analgesic agent; Z79.52 Long term (current) use of systemic steroids; Z87.19 Personal history of other diseases of the digestive system; X50.0XXA Overexertion from strenuous movement or load, initial encounter; Y92.009 Unspecified place in unspecified non-institutional (private) residence as the place of occurrence of the external cause
CPT/HCPCS: 96372; 99284

== ENCOUNTER 2019-04-08 17:23 | Emergency (ER) | payer MEDICAID ==
[~2019-04-08] VITALS: Ht 165.1 cm; Wt 72.6 kg
[~2019-04-08 17:23] MED LIST changes: +CYCL10TA9 PO; +METH4TAB PO
[2019-04-08 18:00] VITALS: BP 148/91
--- NOTE | 2019-04-08 18:21 | ED Psychosocial ---
General Chief Complaint: Psych/Social Disorder Stated Complaint: AMS Nursing Triage Note: THE PT IS AMBULATORY TO THE ROOM WITHOUT DIFFICULTY. NO DISTRESS IS SEEN ON ARRIVAL. LOC IS NORMAL FOR THE PT. THE PT STATES THAT SHE IS OUT OF HER MENTAL HEALTH MEDICATION. Source: patient, old records (ALL PMH IS FROM OLD RECORDS, PT LEFT AMA BEFORE FULL H&P COULD BE OBTAINED), other (MALE S.O.) History of Present Illness Date Seen by Provider: Apr 08, 2019 Time Seen by Provider: 17:58 Initial Comments PT ARRIVES VIA POV STATES "ALOT OF STRESS" --CHRONIC PROBLEM ALL OF LIFE STATES SHE USED TO TAKE VALIUM AND XANAX, "BUT MY DR WON'T PRESCRIBE THEM" --STATES SHE HAS NOT HAD EITHER FOR OVER A YEAR STATES HER PREVIOUS DR IS NO LONGER IN PRACTICE AND THE DR SHE SEES NOW WON'T PRESCRIBE IT. STATES HER CURRENT DR IS DR. REDMAN AT [facility], BUT DR. REDMAN HAS NOT BEEN THERE FOR NEARLY A YEAR. HAS LISTED DR. GE AT [facility] HER DR ON MOST RECENT ER VISIT 03/03/19, BUT DOES NOT MENTION HIM TODAY. ALSO MENTIONS A "DR. SIDDIQUI" HER PCP STATES SYMPTOMS ARE NO DIFFERENT TODAY, AND CANNOT STATE WHEN SHE LAST SAW ANYONE FOR THIS PROBLEM PT HAS NOT BEEN TAKING ANY OF HER MEDICATIONS FOR OVER A MONTH, INCLUDING HER SEIZURE MEDICATION, BUT SHE NOR S.O. KNOW WHAT MEDICATIONS SHE IS SUPPOSED TO BE TAKING. PT STATES "I CAN'T TAKE I NO MORE" DENIES SUICIDAL OR HOMICIDAL IDEATIONS EXTREMELY DIFFICULT TO GET A STRAIGHT ANSWER FROM HER, SHE TALKS AND RANTS ON AT GREAT LENGTH, NON-STOP, AND VERY DIFFICULT TO KEEP ON SUBJECT. THIS IS HER NORMAL BASELINE, FROM PREVIOUS ER VISITS AND PER S.O. PCP: STATES SHE IS A PT AT [facility], BUT ALSO HAS LISTED DR. GE HER PCP WELL, ALSO STATES SHE HAS BEEN SEEING A "DR. SIDDIQUI" Allergies and Home Medications Allergies Coded Allergies: aspirin (Verified Allergy, Unknown, HIVES, 04/08/19) Uncoded Allergies: TORDOL (Allergy, Unknown, 04/08/19) Home Medications Albuterol Sulfate 1 Puff Puff, 2 PUFF INH Q4H PRN for SHORTNESS OF BREATH, (Reported) Amlodipine Besylate 10 Mg Tablet, 10 MG PO DAILY, (Reported) Cetirizine HCl 10 Mg Tablet, 10 MG PO DAILY, (Reported) Cyclobenzaprine HCl 10 Mg Tablet, 10 MG PO Q8H Prescribed by: SANDRA PATEL on 03/03/19 0004 Desvenlafaxine Succinate 100 Mg Tab.er.24h, 100 MG PO HS, (Reported) Dexlansoprazole 60 Mg Cap.dr.bp, 60 MG PO DAILY, (Reported) Escitalopram Oxalate 10 Mg Tablet, 10 MG PO DAILY, (Reported) Gabapentin 300 Mg Capsule, 300 MG PO TID, (Reported) Levetiracetam 500 Mg Tablet, 500 MG PO BID, (Reported) Methylprednisolone 4 Mg Tab.ds.pk, 4 MG PO UD Prescribed by: SANDRA PATEL on 03/03/19 0004 Pantoprazole Sodium 40 Mg Tablet.dr, 40 MG PO DAILY, (Reported) Potassium Chloride 10 Meq Tablet.er, 10 MEQ PO BID, (Reported) Quetiapine Fumarate 100 Mg Tablet, 100 MG PO BID, (Reported) Ropinirole HCl 1 Mg Tablet, 1 MG PO BID PRN for RESTLESS LEGS, (Reported) Ropinirole HCl 3 Mg Tablet, 3 MG PO HS, (Reported) Zolpidem Tartrate 10 Mg Tablet, 10 MG PO HS, (Reported) Patient Home Medication List Home Medication List Reviewed: Yes Review of Systems Constitutional: no symptoms reported (PT EXTREMELY DIFFICULT HISTORIAN) Psychiatric/Neurological: See HPI, Anxiety Past Browjsf-Ehlejw-Qammrk Hx Patient Social History Alcohol Use: Denies Use Recreational Drug Use: Yes Drug of Choice: MARIJUANA Smoking Status: Current Everyday Smoker (1 PPD) Type Used: Cigarettes (1 PPD) 2nd Hand Smoke Exposure: Yes Recent Foreign Travel: No Contact w/Someone Who Travel: No Recent Infectious Disease Expo: No Recent Hopitalizations: No Physical Abuse: No Sexual Abuse: No Mistreated: No Fear: No Immunizations Up To Date Tetanus Booster (TDap): Unknown PED Vaccines UTD: Yes Date of Pneumonia Vaccine: Jul 27, 2006 Seasonal Allergies Seasonal Allergies: No Past Medical History Surgeries: Yes ( X 4; PORT LEFT CHEST; CARDIAC CATH--STENTS; COLONOSCOPY / POLYPECTOMY,STATES " blood clot in left lung-stent placed" ,) Cardiac, Coronary Stent, Gallbladder, Hysterectomy Respiratory: Yes Pulmonary Embolism (PER PT), Sleep Apnea, COPD Currently Using CPAP: No Currently Using BIPAP: No Cardiac: Yes (CARDIAC STENTS ) Coronary Artery Disease, Heart Murmur, Hypertension Neurological: Yes Headaches /Migraines, Seizure Disorder 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 Disorders: Yes (hx of uterine and breast cancer) TOP FORMER History: Hysterectomy, Menopausal Genitourinary: No Gastrointestinal: Yes Gastroesophageal Reflux, Chronic Constipation Musculoskeletal: Yes (CHRONIC PAIN COMPLAINTS; ) Osteoporosis, Arthritis, Chronic Back Pain Endocrine: No HEENT: Yes Cataract Cancer: Yes Breast, Ovarian, Uterine Did You Recieve Any Treatments: Yes What Type of Treatment Did You: Chemotherapy, Surgical Intervention Psychosocial: Yes Sleep Difficulties, PTSD, Schizophrenia, Depression Integumentary: No Blood Disorders: Yes (hx of anemia) Adverse Reaction/Blood Tranf: No Family Medical History Cardiovascular disease 19 FATHER 19 MOTHER Cataracts Completed stroke 19 FATHER 19 MOTHER G8 BROTHER (X3) Diabetes mellitus 19 FATHER 19 MOTHER G8 BROTHER BROTHER FH: breast cancer 19 MOTHER Hypertension 19 FATHER 19 MOTHER Myocardial infarction G8 BROTHER No Pertinent Family Hx Physical Exam Vital Signs - First Documented 04/08/19 18:00 Temp 99.1 Pulse 77 B/P (MAP) 148/91 (110) Pulse Ox 100 Capillary Refill : Less Than 3 Seconds Height, Weight, BMI Height: 5'5.00" Weight: 160lbs. 0.0oz. [id number]; 22.5 BMI Method:Estimated General Appearance: other (REEKS OF CIGARETTES, SOMEWHAT HOSTILE, TALKS NON-S TOP, BUT EXTREMLY DIFFICULT TO OBTAIN ANY INFORMATION PT WILL NOT STOP RANTING, AND PT LEFT AMA PRIOR TO COMPLETE EXAM COULD BE DONE) Respiratory: no respiratory distress Neurologic/Psychiatric: oriented x 3, other (AMBULATES WITHOUT DIFFICULTY) Appearance/Memory: disheveled Behavior/Eye Contact: increased rate of speech, belligerent Thoughts/Hallucinations: no apparent hallucination Skin: other (EXTENSIVE TATTOOS) Progress/Results/Core Measures Results/Orders My Orders Orders - SANDRA PATEL DO Urinalysis (04/08/19 18:09) Thyroid Analyzer (04/08/19 18:09) Drug Screen Stat (Urine) (04/08/19 18:09) Cbc With Automated Diff (04/08/19 18:09) Comprehensive Metabolic Panel (04/08/19 18:09) Alcohol (04/08/19 18:09) Acetaminophen (04/08/19 18:09) Salicylate (04/08/19 18:09) Ekg Tracing (04/08/19 18:09) Vital Signs/I&O 04/08/19 18:00 Temp 99.1 Pulse 77 B/P (MAP) 148/91 (110) Pulse Ox 100 Blood Pressure Mean: 110 Progress Progress Note : Progress Note 1822--LAB AND STAFF IN TO DO EKG AND OBTAIN LAB, AND PT STORMED OUT CURSING, REFUSED TO SIGN AMA PAPERS Departure Impression Primary Impression: Left against medical advice Disposition: 07 AGAINST MEDICAL ADVICE Condition: Against Medical Advice Departure-Patient Inst. Referrals: CESILIA GE DO (PCP/Family) Primary Care Physician SANDRA PATEL DO Apr 08, 2019 18:21
--- NOTE | 2019-04-08 18:27 | NUR ---
THE PT RAN OUT OF THE ROOM AND OUT OF BUILDING, WITHOUT SAYING GOODBYE.
== END 2019-04-08 18:27 | disposition left against medical advice (07) ==
LOC: EDUNIT# 17:23 → ER 17:24
DX: R41.82 Altered mental status, unspecified (principal); G47.30 Sleep apnea, unspecified; J44.9 Chronic obstructive pulmonary disease, unspecified; I25.10 Atherosclerotic heart disease of native coronary artery without angina pectoris; I10 Essential (primary) hypertension; G43.909 Migraine, unspecified, not intractable, without status migrainosus; G40.909 Epilepsy, unspecified, not intractable, without status epilepticus; F41.9 Anxiety disorder, unspecified; M81.0 Age-related osteoporosis without current pathological fracture; F43.10 Post-traumatic stress disorder, unspecified; F32.9 Major depressive disorder, single episode, unspecified; F20.9 Schizophrenia, unspecified; D64.9 Anemia, unspecified; F12.10 Cannabis abuse, uncomplicated; K21.9 Gastro-esophageal reflux disease without esophagitis; F17.210 Nicotine dependence, cigarettes, uncomplicated; Z82.49 Family history of ischemic heart disease and other diseases of the circulatory system; Z90.710 Acquired absence of both cervix and uterus; Z85.3 Personal history of malignant neoplasm of breast; Z80.3 Family history of malignant neoplasm of breast; Z85.43 Personal history of malignant neoplasm of ovary; Z92.21 Personal history of antineoplastic chemotherapy; Z85.40 Personal history of malignant neoplasm of unspecified female genital organ; Z87.19 Personal history of other diseases of the digestive system; Z95.5 Presence of coronary angioplasty implant and graft; Z98.890 Other specified postprocedural states; Z86.010 Personal history of colon polyps; Z86.711 Personal history of pulmonary embolism; Z98.2 Presence of cerebrospinal fluid drainage device; Z79.52 Long term (current) use of systemic steroids
CPT/HCPCS: 99281

== ENCOUNTER 2019-12-15 14:41 | Emergency (ER) | payer MEDICAID ==
[~2019-12-15] VITALS: Ht 152.4 cm; Wt 54.4 kg
[~2019-12-15 14:41] MED LIST changes: -ROSU10TA27 PO; +ROSU10TA28 PO; -TRAM50TA2 PO; +TRM50T PO
[2019-12-15 15:40] LABS: BASOPHILS % (AUTO) 0 % (0-10); EOSINOPHILS % (AUTO) 0 % (0-10); HEMATOCRIT 40 % (35-52); HEMOGLOBIN 13.6 G/DL (11.5-16.0); LYMPHOCYTES # (AUTO) 1.1 X 10^3 (1.0-4.0); LYMPHOCYTES % (AUTO) 15 % (12-44); MEAN CORPUSCULAR HEMOGLOBIN 31 PG (25-34); MEAN CORPUSCULAR HGB CONC 34 G/DL (32-36); MEAN CORPUSCULAR VOLUME 91 FL (80-99); MEAN PLATELET VOLUME 9.2 FL (7.4-10.4); MONOCYTES # (AUTO) 0.1 X 10^3 (0.0-1.0); MONOCYTES % (AUTO) 2 % (0-12); NEUTROPHILS # (AUTO) 6.1 X 10^3 (1.8-7.8); NEUTROPHILS % (AUTO) 83 % (42-75); PLATELET COUNT 347 10^3/uL (130-400); RED CELL DISTRIBUTION WIDTH 15.2 % (10.0-14.5); WHITE BLOOD COUNT 7.3 10^3/uL (4.3-11.0)
--- NOTE | 2019-12-15 15:42 | ED General ---
General Chief Complaint: Cough/Cold/Flu Symptoms Stated Complaint: FLU A Nursing Triage Note: Pt reports being sick since and is not improving. Pt c/o dizziness, SOB, congestion, thick yellow mucous, lung tightness, fever, nausea and dry heaves. Pt reports taking AB last week. Pt thinks Cefdinir. Nursing Sepsis Screen: Possible Severe Sepsis Risk Source of Information: Patient Exam Limitations: No Limitations History of Present Illness Date Seen by Provider: Dec 15, 2019 Time Seen by Provider: 15:39 Initial Comments To er with c/o cough, malaise, nausea vomiting diarrhea since . has been on antibiotics a few times as well as prednisone without improvement. Continues to smoke. Has had diarrhea x4 today and several times each of the preceding days as well. Also complains of a headache. Timing/Duration: Other (4 months) Severity: Moderate Associated Systoms: Cough, Nausea/Vomiting, Weakness Allergies and Home Medications Allergies Coded Allergies: acetaminophen (Verified Allergy, Unknown, Hives, 12/15/19) aspirin (Verified Allergy, Unknown, HIVES, 04/08/19) ibuprofen (Verified Allergy, Unknown, Hives, 12/15/19) Uncoded Allergies: TORDOL (Allergy, Unknown, 04/08/19) Home Medications Albuterol Sulfate 1 Puff Puff, 2 PUFF INH Q4H PRN for SHORTNESS OF BREATH, (Reported) Amlodipine Besylate 10 Mg Tablet, 10 MG PO DAILY, (Reported) Cetirizine HCl 10 Mg Tablet, 10 MG PO DAILY, (Reported) Cyclobenzaprine HCl 10 Mg Tablet, 10 MG PO Q8H Prescribed by: SANDRA PATEL on 03/03/193 Desvenlafaxine Succinate 100 Mg Tab.er.24h, 100 MG PO HS, (Reported) Dexlansoprazole 60 Mg Cap.dr.bp, 60 MG PO DAILY, (Reported) Escitalopram Oxalate 10 Mg Tablet, 10 MG PO DAILY, (Reported) Gabapentin 300 Mg Capsule, 300 MG PO TID, (Reported) Levetiracetam 500 Mg Tablet, 500 MG PO BID, (Reported) Methylprednisolone 4 Mg Tab.ds.pk, 4 MG PO UD Prescribed by: SANDRA PATEL on 03/03/193 Pantoprazole Sodium 40 Mg Tablet.dr, 40 MG PO DAILY, (Reported) Potassium Chloride 10 Meq Tablet.er, 10 MEQ PO BID, (Reported) Prednisone 20 Mg Tab, 40 MG PO DAILY Prescribed by: NOBLE TMOAS on 12/15/19 3497 Quetiapine Fumarate 100 Mg Tablet, 100 MG PO BID, (Reported) Ropinirole HCl 1 Mg Tablet, 1 MG PO BID PRN for RESTLESS LEGS, (Reported) Ropinirole HCl 3 Mg Tablet, 3 MG PO HS, (Reported) Zolpidem Tartrate 10 Mg Tablet, 10 MG PO HS, (Reported) Patient Home Medication List Home Medication List Reviewed: Yes Review of Systems Review of Systems Constitutional: see HPI, malaise, weakness EENTM: see HPI Respiratory: see HPI, cough Genitourinary: no symptoms reported Musculoskeletal: no symptoms reported; No neck pain Skin: no symptoms reported Psychiatric/Neurological: No Symptoms Reported Hematologic/Lymphatic: No Symptoms Reported Past Goyokex-Oypaxz-Ggntps Hx Patient Social History Alcohol Use: Denies Use Recreational Drug Use: Yes Drug of Choice: MARIJUANA Smoking Status: Current Everyday Smoker Type Used: Cigarettes 2nd Hand Smoke Exposure: Yes Recent Foreign Travel: No Contact w/Someone Who Travel: No Recent Infectious Disease Expo: No Recent Hopitalizations: No Immunizations Up To Date Tetanus Booster (TDap): Unknown PED Vaccines UTD: Yes Date of Pneumonia Vaccine: Jul 27, 2006 Seasonal Allergies Seasonal Allergies: No Past Medical History Surgeries: Yes Cardiac, Coronary Stent, Gallbladder, Hysterectomy Respiratory: Yes Pulmonary Embolism, Sleep Apnea, COPD Currently Using CPAP: No Currently Using BIPAP: No Cardiac: Yes (CARDIAC STENTS ) Coronary Artery Disease, Heart Murmur, Hypertension 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, 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) Headaches /Migraines, Seizure Disorder 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 Disorders: 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, 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 Genitourinary: No Gastrointestinal: Yes Gastroesophageal Reflux, Chronic Constipation Musculoskeletal: Yes (CHRONIC PAIN COMPLAINTS; ) Osteoporosis, Arthritis, Chronic Back Pain Endocrine: No HEENT: Yes Cataract Cancer: Yes Breast, Ovarian, Uterine Did You Recieve Any Treatments: Yes What Type of Treatment Did You: Chemotherapy, Surgical Intervention Psychosocial: Yes Sleep Difficulties, PTSD, Schizophrenia, Depression Integumentary: No Blood Disorders: Yes (hx of anemia) Adverse Reaction/Blood Tranf: No Family Medical History Cardiovascular disease 19 FATHER 19 MOTHER Cataracts Completed stroke 19 FATHER 19 MOTHER G8 BROTHER (X3) Diabetes mellitus 19 FATHER 19 MOTHER G8 BROTHER BROTHER FH: breast cancer 19 MOTHER Hypertension 19 FATHER 19 MOTHER Myocardial infarction G8 BROTHER No Pertinent Family Hx Physical Exam Vital Signs Vital Signs - First Documented 12/15/19 14:55 Temp 36.8 Pulse 60 Resp 25 B/P (MAP) 135/80 (98) Pulse Ox 99 O2 Delivery Room Air Capillary Refill : Less Than 3 Seconds Height, Weight, BMI Height: 5'5.00" Weight: 160lbs. 0.0oz. 72.419738em; 23.00 BMI Method:Estimated General Appearance: No Apparent Distress, WD/WN Eyes: Bilateral Eye Normal Inspection HEENT: PERRL/EOMI, TMs Normal Neck: Full Range of Motion, Normal Inspection Respiratory: No Accessory Muscle Use, No Respiratory Distress, Decreased Breath Sounds Gastrointestinal: Normal Bowel Sounds, Non Tender, Soft Extremity: Normal Capillary Refill Neurologic/Psychiatric: Alert, Oriented x3 Skin: Normal Color, Warm/Dry Progress/Results/Core Measures Suspected Sepsis Recent Fever Within 48 Hours: Yes Infection Criteria Present: Suspected New Infection New/Unexplained Altered Menta: No Sepsis Screen: Possible Severe Sepsis Risk SIRS Temperature: Pulse: 60 Respiratory Rate: 25 Laboratory Tests 12/15/19 15:30: White Blood Count 7.3 Blood Pressure 135 /80 Mean: 98 Laboratory Tests 12/15/19 15:30: Creatinine 0.71, Platelet Count 347, Total Bilirubin 0.3 Results/Orders Lab Results Laboratory Tests Test 12/15/19 15:30 12/15/19 15:40 Range/Units White Blood Count 7.3 4.3-11.0 10^3/uL Red Blood Count 4.44 4.35-5.85 10^6/uL Hemoglobin 13.6 11.5-16.0 G/DL Hematocrit 40 35-52 % Mean Corpuscular Volume 91 80-99 FL Mean Corpuscular Hemoglobin 31 25-34 PG Mean Corpuscular Hemoglobin Concent 34 32-36 G/DL Red Cell Distribution Width 15.2 H 10.0-14.5 % Platelet Count 347 130-400 10^3/uL Mean Platelet Volume 9.2 7.4-10.4 FL Neutrophils (%) (Auto) 83 H 42-75 % Lymphocytes (%) (Auto) 15 12-44 % Monocytes (%) (Auto) 2 0-12 % Eosinophils (%) (Auto) 0 0-10 % Basophils (%) (Auto) 0 0-10 % Neutrophils # (Auto) 6.1 1.8-7.8 X 10^3 Lymphocytes # (Auto) 1.1 1.0-4.0 X 10^3 Monocytes # (Auto) 0.1 0.0-1.0 X 10^3 Eosinophils # (Auto) 0.0 0.0-0.3 10^3/uL Basophils # (Auto) 0.0 0.0-0.1 10^3/uL Sodium Level 140 135-145 MMOL/L Potassium Level 4.1 3.6-5.0 MMOL/L Chloride Level 110 H 98-107 MMOL/L Carbon Dioxide Level 20 L 21-32 MMOL/L Anion Gap 10 5-14 MMOL/L Blood Urea Nitrogen 8 7-18 MG/DL Creatinine 0.71 0.60-1.30 MG/DL Estimat Glomerular Filtration Rate > 60 BUN/Creatinine Ratio 11 Glucose Level 125 H 70-105 MG/DL Calcium Level 9.4 8.5-10.1 MG/DL Corrected Calcium 9.4 8.5-10.1 MG/DL Total Bilirubin 0.3 0.1-1.0 MG/DL Aspartate Amino Transf (AST/SGOT) 9 5-34 U/L Alanine Aminotransferase (ALT/SGPT) 8 0-55 U/L Alkaline Phosphatase 112 40-136 U/L Total Protein 6.9 6.4-8.2 GM/DL Albumin 4.0 3.2-4.5 GM/DL Lipase 4 L 8-78 U/L Urine Color YELLOW Urine Clarity CLEAR Urine pH 7.5 5-9 Urine Specific [place] 1.020 1.016-1.022 Urine Protein NEGATIVE NEGATIVE Urine Glucose (UA) NEGATIVE NEGATIVE Urine Ketones NEGATIVE NEGATIVE Urine Nitrite NEGATIVE NEGATIVE Urine Bilirubin NEGATIVE NEGATIVE Urine Urobilinogen 0.2 < = 1.0 MG/DL Urine Leukocyte Esterase NEGATIVE NEGATIVE Urine RBC (Auto) TRACE-L NEGATIVE Urine RBC 0-2 /HPF Urine WBC NONE /HPF Urine Squamous Epithelial Cells 5-10 /HPF Urine Crystals PRESENT H /LPF Urine Amorphous Sediment FEW SERGEY PHOSPHATE H /LPF Urine Bacteria TRACE /HPF Urine Casts NONE /LPF Urine Mucus SMALL H /LPF Urine Culture Indicated NO My Orders Orders - NOBLE TOMAS APRN Cbc With Automated Diff (12/15/19 15:34) Comprehensive Metabolic Panel (12/15/19 15:34) Lipase (12/15/19 15:34) Ua Culture If Indicated (12/15/19 15:34) Chest Pa/Lat (2 View) (12/15/19 15:34) Ns Iv 1000 Ml (Sodium Chloride 0.9%) (12/15/19 15:45) Ondansetron Injection (Zofran Injectio (12/15/19 15:45) Medications Given in ED Current Medications Medications Dose Ordered Sig/Matt Route Start Time Stop Time Status Last Admin Dose Admin Ondansetron HCl 8 mg ONCE ONCE IVP 12/15/19 15:45 12/15/19 15:46 DC 12/15/19 15:58 8 MG Vital Signs/I&O 12/15/19 14:55 Temp 36.8 Pulse 60 Resp 25 B/P (MAP) 135/80 (98) Pulse Ox 99 O2 Delivery Room Air Capillary Refill : Less Than 3 Seconds Blood Pressure Mean: 98 Departure Impression Primary Impression: Bronchitis Additional Impression: Nausea vomiting and diarrhea Disposition: HOME, SELF-CARE Condition: Stable Departure-Patient Inst. Decision time for Depature: 16:24 Referrals: CESILIA GE DO (PCP/Family) Primary Care Physician Patient Instructions: Acute Bronchitis Add. Discharge Instructions: 1. Call your family doctor to be seen 2. Steroids as directed 3. All discharge instructions reviewed with patient and/or family. Voiced understanding. Scripts Prednisone (Prednisone) 20 Mg Tab 40 MG PO DAILY, #8 TAB 0 Refills Prov: NOBLE TOMAS APRN 12/15/19 NOBLE TOMAS APRN Dec 15, 2019 15:42
[2019-12-15] MEDS ORDERED: NS IV 1000 ML 1,000 ML IV SCH (15:45)
[2019-12-15] MEDS ORDERED: ONDANSETRON 4 MG/2 ML (SDV) Z0FRAN IVP ONE (15:45)
[2019-12-15 16:01] LABS: BILIRUBIN,URINE NEGATIVE (NEGATIVE); CLARITY,URINE CLEAR; COLOR,URINE YELLOW; GLUCOSE, URINE (UA) NEGATIVE (NEGATIVE); KETONES,URINE NEGATIVE (NEGATIVE); LEUKOCYTE ESTERASE ,URINE NEGATIVE (NEGATIVE); NITRITE,URINE NEGATIVE (NEGATIVE); PH,URINE 7.5 (5-9); PROTEIN,URINE NEGATIVE (NEGATIVE)
--- NOTE | 2019-12-15 16:04 | Diagnostic Imaging Report ---
INDICATION: Dizziness, shortness of breath, congestion productive cough. Remote history of ovarian cancer. EXAMINATION: Two views of the chest were obtained. FINDINGS: The lungs are clear. The heart and vessels are normal. There is no failure, effusion or pneumothorax. Central venous catheter via left subclavian in the lower SVC. There has been no change from comparison of 09/24/2018. IMPRESSION: Negative. Dictated by: Dictated on workstation # [id number]
[2019-12-15 16:07] LABS: ALANINE AMINOTRANSFERASE 8 U/L (0-55); ALKALINE PHOSPHATASE 112 U/L (40-136); BILIRUBIN,TOTAL 0.3 MG/DL (0.1-1.0); BUN/CREATININE RATIO 11; CALCIUM 9.4 MG/DL (8.5-10.1); CARBON DIOXIDE 20 MMOL/L (21-32); CHLORIDE 110 MMOL/L (98-107); CREATININE SERUM 0.71 MG/DL (0.60-1.30); GFR ESTIMATED > 60; GLUCOSE 125 MG/DL (70-105); LIPASE 4 U/L (8-78); POTASSIUM 4.1 MMOL/L (3.6-5.0); SODIUM 140 MMOL/L (135-145); TOTAL PROTEIN 6.9 GM/DL (6.4-8.2)
[2019-12-15 16:20] LABS: BACTERIA,URINE TRACE /HPF; RBC,URINE 0-2 /HPF
[2019-12-15 16:21] LABS: AMORPHOUS SEDIMENT,UR FEW AMOR PHOSPHATE /LPF
[2019-12-15] MEDS ORDERED: PRD20T PO (16:33)
[2019-12-15] MEDS ORDERED: PROCHLORPERAZINE 10 MG/2ML INJ (COMPAZINE) IV ONE (16:45)
[2019-12-15] MEDS ORDERED: diphenhydrAMINE 50 MG/ML INJ (BENADRYL) IVP ONE (16:45)
--- NOTE | 2019-12-15 17:09 | Diagnostic Imaging Report ---
INDICATION: Severe headache, prior history of brain aneurysm. TECHNIQUE: Multiple contiguous axial images were obtained through the brain without the use of intravenous contrast. Auto Exposure Controls were utilized during the CT exam to meet ALARA standards for radiation dose reduction. Comparison made to 09/24/2018. FINDINGS: There are no extra-axial fluid collections. No intracranial hemorrhage. No intracranial mass or mass effect. No midline shift. The ventricles are normal in size and position. There are no focal parenchymal abnormalities in the brain. Calvarial windows appear unremarkable. Visualized portions of the sinuses and orbits appear unremarkable. IMPRESSION: Negative noncontrast brain CT. No significant change compared to the prior study. Dictated by: Dictated on workstation # [id number]
[2019-12-15 17:33] VITALS: BP 103/52
== END 2019-12-15 17:33 | disposition home or self-care (01) ==
LOC: ER 14:41
DX: J40 Bronchitis, not specified as acute or chronic (principal); R11.2 Nausea with vomiting, unspecified; R19.7 Diarrhea, unspecified; J44.9 Chronic obstructive pulmonary disease, unspecified; I10 Essential (primary) hypertension; I25.10 Atherosclerotic heart disease of native coronary artery without angina pectoris; G40.909 Epilepsy, unspecified, not intractable, without status epilepticus; G43.909 Migraine, unspecified, not intractable, without status migrainosus; K21.9 Gastro-esophageal reflux disease without esophagitis; M81.0 Age-related osteoporosis without current pathological fracture; M54.9 Dorsalgia, unspecified; G89.29 Other chronic pain; F43.10 Post-traumatic stress disorder, unspecified; F32.9 Major depressive disorder, single episode, unspecified; F20.9 Schizophrenia, unspecified; F17.210 Nicotine dependence, cigarettes, uncomplicated; Z85.3 Personal history of malignant neoplasm of breast; Z85.43 Personal history of malignant neoplasm of ovary; Z85.42 Personal history of malignant neoplasm of other parts of uterus; Z88.5 Allergy status to narcotic agent; Z88.6 Allergy status to analgesic agent; Z86.711 Personal history of pulmonary embolism; Z95.5 Presence of coronary angioplasty implant and graft; Z82.49 Family history of ischemic heart disease and other diseases of the circulatory system
CPT/HCPCS: 36415; 70450; 71046; 80053; 81000; 83690; 85025

== ENCOUNTER 2020-01-02 01:38 | Inpatient (IN) | payer MEDICAID ==
[2020-01-02] VITALS (29 sets, daily range): BP systolic 75–111; BP diastolic 45–66
[~2020-01-02] VITALS: Ht 152 cm; Wt 64.5 kg
[~2020-01-02 01:38] MED LIST changes: +ACHYD1T; -HYDR-3820; -ONDA8TAB12 PO; +ONDA8TAB15 PO; +PRD20T PO; +QUET100T33; +QUET100T33 PO; -QUET100T69; -QUET100T69 PO; +ROPI1TAB PO; -ROPI1TAB2 PO; -TRAZ-190 PO; +TRAZ-227 PO
[2020-01-02] MEDS ORDERED: PRAZ1CAP2 (01:54)
[2020-01-02] MEDS ORDERED: NAPR-915 (01:54)
[2020-01-02 01:55] LABS: ABG BASE EXCESS -10.5 MMOL/L (-2.5-2.5); ABG OXYGEN SATURATION 90 % (94-100); ABG PCO2 33 MMHG (35-45); ABG PO2 62 MMHG (79-93); ABG TCO2 15.9 MMOL/L (21.0-31.0)
[2020-01-02 01:56] LABS: ABG PH 7.28 (7.37-7.43)
[2020-01-02 01:57] LABS: ALLENS TEST YES-POS; INSPIRED O2 NOT INDICATED; VENTILATOR NO
--- NOTE | 2020-01-02 01:59 | NUR ---
pt had approx. 1min clonic/tonic seizure activity, self limited.
[2020-01-02] MEDS ORDERED: LEVETIRACETAM INJECTION 1,000 MG in NS (IVPB) 100 ML IV STA (02:00)
[2020-01-02] MEDS ORDERED: LORazepam INJ 2 MG/ML (ATIVAN) VIAL IM ONE (02:00)
[2020-01-02] MEDS ORDERED: LORazepam INJ 2 MG/ML (ATIVAN) VIAL IVP ONE (02:00)
[2020-01-02] MEDS ORDERED: ONDANSETRON 4 MG/2 ML (SDV) Z0FRAN IVP ONE ×2 (02:00→03:45)
--- NOTE | 2020-01-02 02:00 | ED Neurological Problem ---
General Chief Complaint: Neurological Problems Stated Complaint: SEIZURES Source: patient, EMS Exam Limitations: clinical condition History of Present Illness Date Seen by Provider: Jan 02, 2020 Time Seen by Provider: 01:33 Initial Comments Patient presents to ER by EMS with chief complaint of clutching her chest claiming she is having some chest pain then collapsed to ground started having seizures. She has a seizure history as well as a history of cancer of the uterus and possible in her breasts. Earlier tonight she and her went out to the [employer] and had a few drinks. She told EMS she only had one beer. She is not diabetic and had a normal blood sugar per EMS. She has a port in her right chest which EMS was told that the last time he tried to access a month ago it did not work. They said she was having a grand mal when they arrive. But then by the time they were taking her out to the truck she was awake alert and answering questions. She was asking for Peggy her goat. She then began to have another grand mal seizure so they gave her 5 mg of Versed via the nose. A few minutes la ter she had another seizure lasting for about a minute and a second dose of 5 mg Versed was given for a total of 10 mg. Patient also has a history of coronary disease with stent in her heart. Followed by Dr. Adams. The adds that she has an aneurysm on the right side of her head. It's never been repaired. Allergies and Home Medications Allergies Coded Allergies: acetaminophen (Verified Allergy, Unknown, Hives, 12/15/19) aspirin (Verified Allergy, Unknown, HIVES, 04/08/19) ibuprofen (Verified Allergy, Unknown, Hives, 12/15/19) Uncoded Allergies: TORDOL (Allergy, Unknown, 04/08/19) Home Medications Albuterol Sulfate 1 Puff Puff, 2 PUFF INH Q4H PRN for SHORTNESS OF BREATH, (Reported) Amlodipine Besylate 10 Mg Tablet, 10 MG PO DAILY, (Reported) Cetirizine HCl 10 Mg Tablet, 10 MG PO DAILY, (Reported) Cyclobenzaprine HCl 10 Mg Tablet, 10 MG PO Q8H Prescribed by: SANDRA PATEL on 03/03/19 0004 Desvenlafaxine Succinate 100 Mg Tab.er.24h, 100 MG PO HS, (Reported) Dexlansoprazole 60 Mg bp, 60 MG PO DAILY, (Reported) Escitalopram Oxalate 10 Mg Tablet, 10 MG PO DAILY, (Reported) Gabapentin 300 Mg Capsule, 300 MG PO TID, (Reported) Levetiracetam 500 Mg Tablet, 500 MG PO BID, (Reported) Methylprednisolone 4 Mg Tab.ds.pk, 4 MG PO UD Prescribed by: SANDRA PATEL on 03/03/19 0004 Pantoprazole Sodium 40 Mg Tablet.dr, 40 MG PO DAILY, (Reported) Potassium Chloride 10 Meq Tablet.er, 10 MEQ PO BID, (Reported) Quetiapine Fumarate 100 Mg Tablet, 100 MG PO BID, (Reported) Ropinirole HCl 1 Mg Tablet, 1 MG PO BID PRN for RESTLESS LEGS, (Reported) Ropinirole HCl 3 Mg Tablet, 3 MG PO HS, (Reported) Zolpidem Tartrate 10 Mg Tablet, 10 MG PO HS, (Reported) Patient Home Medication List Home Medication List Reviewed: Yes Review of Systems Review of Systems Constitutional: see HPI; No chills, No fever Eyes: Denies Blindness, Denies Blurred Vision Ears, Nose, Mouth, Throat: denies ear pain, denies ear discharge Respiratory: cough; No short of breath, No wheezing Cardiovascular: No chest pain, No edema Gastrointestinal: No abdominal pain, No constipation, No diarrhea Genitourinary: No discharge, No dysuria Musculoskeletal: No back pain, No joint pain Skin: No pruritus, No rash Psychiatric/Neurological: Denies Anxiety, Denies Depressed All Other Systems Reviewed Negative Unless Noted: Yes Past Qxlhtsp-Fmuoom-Wiolij Hx Patient Social History Alcohol Use: Regular Use Recreational Drug Use: Yes Drug of Choice: cannabis Smoking Status: Current Everyday Smoker Type Used: Cigarettes 2nd Hand Smoke Exposure: Yes Recent Hopitalizations: No Immunizations Up To Date Tetanus Booster (TDap): Unknown PED Vaccines UTD: Yes Date of Pneumonia Vaccine: Jul 27, 2006 Seasonal Allergies Seasonal Allergies: No Past Medical History Surgeries: Yes Cardiac, Coronary Stent, Gallbladder, Hysterectomy Respiratory: Yes Pulmonary Embolism, Sleep Apnea, COPD Currently Using CPAP: No Currently Using BIPAP: No Cardiac: Yes (CARDIAC STENTS ) Coronary Artery Disease, Heart Murmur, Hypertension 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, 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) Headaches /Migraines, Seizure Disorder 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 Disorders: Yes (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, 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 Genitourinary: No Gastrointestinal: Yes Gastroesophageal Reflux, Chronic Constipation Musculoskeletal: Yes (CHRONIC PAIN COMPLAINTS; ) Osteoporosis, Arthritis, Chronic Back Pain Endocrine: No HEENT: Yes Cataract Cancer: Yes Breast, Ovarian, Uterine Did You Recieve Any Treatments: Yes What Type of Treatment Did You: Chemotherapy, Surgical Intervention Psychosocial: Yes Sleep Difficulties, PTSD, Schizophrenia, Depression Integumentary: No Blood Disorders: Yes (hx of anemia) Adverse Reaction/Blood Tranf: No Family Medical History Cardiovascular disease 19 FATHER 19 MOTHER Cataracts Completed stroke 19 FATHER 19 MOTHER G8 BROTHER (X3) Diabetes mellitus 19 FATHER 19 MOTHER G8 BROTHER BROTHER FH: breast cancer 19 MOTHER Hypertension 19 FATHER 19 MOTHER Myocardial infarction G8 BROTHER No Pertinent Family Hx Physical Exam Vital Signs Vital Signs - First Documented Capillary Refill : Height, Weight, BMI Height: 5'5.00" Weight: 160lbs. 0.0oz. 72.353164sl; 23.00 BMI Method:Estimated General Appearance: mild distress, other (disheveled) HEENT: PERRL/EOMI, normal ENT inspection, TMs normal, pharynx normal Neck: non-tender, full range of motion, supple Respiratory: lungs clear, normal breath sounds, no respiratory distress, no accessory muscle use Cardiovascular: normal peripheral pulses, regular rate, rhythm, no edema Peripheral Pulses: 2+ Radial Pulses (R), 2+ Radial Pulses (L) Gastrointestinal: normal bowel sounds, non tender, soft, no organomegaly Extremities: normal range of motion, non-tender, normal inspection, normal capillary refill Neurologic/Psychiatric: no motor/sensory deficits, alert, normal mood/affect, oriented x 3 Crainal Nerves: normal hearing, normal speech, PERRL Motor/Sensory: no motor deficit, no sensory deficit, no pronator drift Skin: normal color, warm/dry Stroke Stroke Thrombolytic Exclusion Age 18 or Over: Yes Acute intenal hemorrhage: No History of CVA: No Uncontrolled Coagulation Defec: No Intracranial Hemorrhage: No Severe Hypertension: No GI or Bleed: No Subarachnoid Hemorrhage: No Intracranial Neoplasm/Aneurysm: No Oral Anticoagulants: No Progress/Results/Core Measures Results/Orders Lab Results Laboratory Tests Test 01/02/20 01:45 01/02/20 01:55 01/02/20 03:05 01/02/20 03:07 Range/Units Blood Gas Puncture Site LEFT RADIAL LEFT RADIAL Blood Gas Patient Temperature 37.0 37.0 Arterial Blood pH 7.28 *L 7.30 *L 7.37-7.43 Arterial Blood Partial Pressure CO2 33 L 35 35-45 MMHG Arterial Blood Partial Pressure O2 62 L 94 H 79-93 MMHG Arterial Blood HCO3 15 *L 17 *L 23-27 MMOL/L Arterial Blood Total CO2 15.9 L 17.9 L 21.0-31.0 MMOL/L Arterial Blood Oxygen Saturation 90 L 97 94-100 % Arterial Blood Base Excess -10.5 L -8.4 L -2.5-2.5 MMOL/L Satish Test YES-POS YES-POS Blood Gas Ventilator Setting NO NO Blood Gas Inspired Oxygen NOT INDICATED 2L White Blood Count 11.7 H 4.3-11.0 10^3/uL Red Blood Count 4.14 L 4.35-5.85 10^6/uL Hemoglobin 12.8 11.5-16.0 G/DL Hematocrit 38 35-52 % Mean Corpuscular Volume 92 80-99 FL Mean Corpuscular Hemoglobin 31 25-34 PG Mean Corpuscular Hemoglobin Concent 34 32-36 G/DL Red Cell Distribution Width 15.2 H 10.0-14.5 % Platelet Count 455 H 130-400 10^3/uL Mean Platelet Volume 9.0 7.4-10.4 FL Neutrophils (%) (Auto) 55 42-75 % Lymphocytes (%) (Auto) 34 12-44 % Monocytes (%) (Auto) 10 0-12 % Eosinophils (%) (Auto) 1 0-10 % Basophils (%) (Auto) 0 0-10 % Neutrophils # (Auto) 6.4 1.8-7.8 X 10^3 Lymphocytes # (Auto) 4.0 1.0-4.0 X 10^3 Monocytes # (Auto) 1.1 H 0.0-1.0 X 10^3 Eosinophils # (Auto) 0.2 0.0-0.3 10^3/uL Basophils # (Auto) 0.0 0.0-0.1 10^3/uL Prothrombin Time 14.3 12.2-14.7 SEC INR Comment 1.1 0.8-1.4 Activated Partial Thromboplast Time 20 L 24-35 SEC Sodium Level 143 135-145 MMOL/L Potassium Level 3.2 L 3.6-5.0 MMOL/L Chloride Level 111 H 98-107 MMOL/L Carbon Dioxide Level 13 L 21-32 MMOL/L Anion Gap 19 H 5-14 MMOL/L Blood Urea Nitrogen 7 7-18 MG/DL Creatinine 0.81 0.60-1.30 MG/DL Estimat Glomerular Filtration Rate > 60 BUN/Creatinine Ratio 9 Glucose Level 70 70-105 MG/DL Calcium Level 8.7 8.5-10.1 MG/DL Corrected Calcium 8.7 8.5-10.1 MG/DL Magnesium Level 1.9 1.6-2.4 MG/DL Total Bilirubin 0.4 0.1-1.0 MG/DL Aspartate Amino Transf (AST/SGOT) 49 H 5-34 U/L Alanine Aminotransferase (ALT/SGPT) 15 0-55 U/L Alkaline Phosphatase 117 40-136 U/L Total Creatine Kinase 54 29-168 U/L Myoglobin 32.1 10.0-92.0 NG/ML Troponin I < 0.028 <0.028 NG/ML Total Protein 7.0 6.4-8.2 GM/DL Albumin 4.0 3.2-4.5 GM/DL Serum Alcohol 33 H <10 MG/DL Urine Color YELLOW Urine Clarity CLEAR Urine pH 6.0 5-9 Urine Specific [place] 1.020 1.016-1.022 Urine Protein NEGATIVE NEGATIVE Urine Glucose (UA) NEGATIVE NEGATIVE Urine Ketones NEGATIVE NEGATIVE Urine Nitrite NEGATIVE NEGATIVE Urine Bilirubin NEGATIVE NEGATIVE Urine Urobilinogen 0.2 < = 1.0 MG/DL Urine Leukocyte Esterase NEGATIVE NEGATIVE Urine RBC (Auto) TRACE-I NEGATIVE Urine RBC RARE /HPF Urine WBC NONE /HPF Urine Squamous Epithelial Cells 5-10 /HPF Urine Crystals NONE /LPF Urine Bacteria TRACE /HPF Urine Casts NONE /LPF Urine Mucus SMALL H /LPF Urine Culture Indicated NO Urine Opiates Screen NEGATIVE NEGATIVE Urine Oxycodone Screen POSITIVE H NEGATIVE Urine Methadone Screen NEGATIVE NEGATIVE Urine Propoxyphene Screen NEGATIVE NEGATIVE Urine Barbiturates Screen NEGATIVE NEGATIVE Ur Tricyclic Antidepressants Screen NEGATIVE NEGATIVE Urine Phencyclidine Screen NEGATIVE NEGATIVE Urine Amphetamines Screen NEGATIVE NEGATIVE Urine Methamphetamines Screen NEGATIVE NEGATIVE Urine Benzodiazepines Screen POSITIVE H NEGATIVE Urine Cocaine Screen NEGATIVE NEGATIVE Urine Cannabinoids Screen POSITIVE H NEGATIVE Test 01/02/20 03:23 Range/Units Glucometer 81 70-110 MG/DL My Orders Orders - AISHA,VENKAT J Lorazepam Injection (Ativan Injection) (01/02/20 02:00) Cbc With Automated Diff (01/02/20:49) Magnesium (01/02/20 01:49) Chest 1 View, Ap/Pa Only (01/02/20:49) Ekg Tracing (01/02/20:49) Comprehensive Metabolic Panel (01/02/20:49) Myoglobin Serum (01/02/20:49) Protime With Inr (01/02/20:49) Partial Thromboplastin Time (01/02/20:49) O2 (01/02/20:49) Monitor-Rhythm Ecg Trace Only (01/02/20:49) Lipid Panel (01/03/20 06:00) Ed Iv/Invasive Line Start (01/02/20 01:49) Ua Culture If Indicated (01/02/20:49) Catheter(Urinary) Insert & Ass 03,15 (01/02/20:49) Drug Screen Stat (Urine) (01/02/20 01:49) Arterial Blood Gas (01/02/20 01:45) Lorazepam Injection (Ativan Injection) (01/02/20 02:00) Ondansetron Injection (Zofran Injectio (01/02/20 02:00) Ct Head/Cervical Spine Wo (01/02/20 01:55) Troponin I (01/02/20 01:55) Levetiracetam Injection (Keppra Injectio (01/02/20 02:00) Alcohol (01/02/20 03:01) Accucheck Stat ONCE (01/02/20 03:01) Arterial Blood Gas (01/02/20 03:08) Creatine Kinase (01/02/20 03:15) Magnesium (01/02/20 03:24) Ed Iv/Invasive Line Start (01/02/20 03:24) Lactated Ringers (Lr 1000 Ml Iv Solution (01/02/20 03:24) Ondansetron Injection (Zofran Injectio (01/02/20 03:45) Medications Given in ED Current Medications Medications Dose Ordered Sig/Matt Route Start Time Stop Time Status Last Admin Dose Admin Lactated Ringer's 1,000 ml @ 0 mls/hr Q0M ONCE IV 01/02/20 03:24 01/02/20 03:25 DC 01/02/20 03:31 0 MLS/HR Lorazepam 2 mg ONCE ONCE IVP 01/02/20 02:00 01/02/20 03:00 DC 01/02/20 01:59 2 MG Ondansetron HCl 4 mg ONCE ONCE IVP 01/02/20 02:00 01/02/20 03:00 DC 01/02/20 03:04 4 MG Vital Signs/I&O 01/02/20 01/02/20 01:39 01:39 Temp 37.0 Pulse 91 Resp 16 B/P (MAP) 131/92 (105) Pulse Ox 98 98 O2 Delivery Nasal Cannula Nasal Cannula O2 Flow Rate 2.00 2.00 Progress Progress Note : Time: :31 Progress Note Please note that daylight savings time changed at 0200. Upon arrival patient had another minute grand mal seizure so 2 mg IV Ativan were administered. Keppra 1 g was administered IV. Give her a liter of fluids lactated ringer since her potassium is mildly low. We'll correct her acid base balance with fluids overnight are most likely due to her seizures. Chest x-ray and CT head and neck case she had a fall or bleed. Initial ECG Impression Date: Jan 02, 2020 Initial ECG Impression Time: 02:48 Initial ECG Rate: 78 Initial ECG Rhythm: Normal Sinus Initial ECG Intervals: Normal Initial ECG Impression: Normal Comment Normal sinus rhythm without ST elevation or depression. Diagnostic Imaging Diagonstic Imaging: Xray Plain Films/CT/US/NM/MRI: chest Comments Chest x-ray without acute cardiopulmonary processes noted. Reviewed: Reviewed by Me Diagonstic Imaging: CT Plain Films/CT/US/NM/MRI: c-spine, head Comments No intra-calvarial fracture, mass effect, midline shift, hemorrhage or tumor. No C-spine subluxation fracture or malalignment. Questionable partially visualized pulmonary nodule in the anterior lateral aspect of the left upper lobe best seen on series 3 image 72 measuring at least 3 mm. Reviewed: [facility] Reviewed by Me Departure Communication (Admissions) Time/Spoke to Admitting Phy: 03:30 Discussed the case with Dr. Carreno and he agrees with IV fluids to address her metabolic acidosis that is likely from seizures. Time/Spoke to Consulting Phy: 03:40 Discussed the case with Dr. Vizcaino and he agrees to consult on the case. Impression Primary Impression: Seizures Additional Impressions: Chest pain Qualified Codes: R07.9 - Chest pain, unspecified Pulmonary nodule, left Disposition: ADMITTED INPATIENT Condition: Stable Admissions Decision to Admit Reason: Admit from ER (General) Decision to Admit/Date: Jan 02, 2020 Time/Decision to Admit Time: 03:30 Departure-Patient Inst. Referrals: CESILIA ADAMS DO (PCP/Family) Primary Care Physician VENKAT LEONARD Jan 02, 2020 03:00
--- NOTE | 2020-01-02 02:00 | NUR ---
DST, TIME CHANGE
[2020-01-02 03:04] LABS: BASOPHILS % (AUTO) 0 % (0-10); EOSINOPHILS # (AUTO) 0.2 10^3/uL (0.0-0.3); EOSINOPHILS % (AUTO) 1 % (0-10); HEMATOCRIT 38 % (35-52); HEMOGLOBIN 12.8 G/DL (11.5-16.0); LYMPHOCYTES % (AUTO) 34 % (12-44); MEAN CORPUSCULAR HEMOGLOBIN 31 PG (25-34); MEAN CORPUSCULAR HGB CONC 34 G/DL (32-36); MEAN CORPUSCULAR VOLUME 92 FL (80-99); MONOCYTES # (AUTO) 1.1 X 10^3 (0.0-1.0); MONOCYTES % (AUTO) 10 % (0-12); NEUTROPHILS # (AUTO) 6.4 X 10^3 (1.8-7.8); NEUTROPHILS % (AUTO) 55 % (42-75); PLATELET COUNT 455 10^3/uL (130-400); RED CELL DISTRIBUTION WIDTH 15.2 % (10.0-14.5); WHITE BLOOD COUNT 11.7 10^3/uL (4.3-11.0)
[2020-01-02 03:12] LABS: INR 1.1 (0.8-1.4); PROTHROMBIN TIME PATIENT 14.3 SEC (12.2-14.7)
[2020-01-02 03:13] LABS: ABG BASE EXCESS -8.4 MMOL/L (-2.5-2.5); ABG OXYGEN SATURATION 97 % (94-100); ABG PCO2 35 MMHG (35-45); ABG PO2 94 MMHG (79-93); ABG TCO2 17.9 MMOL/L (21.0-31.0)
[2020-01-02 03:15] LABS: ALLENS TEST YES-POS; INSPIRED O2 2L; VENTILATOR NO
[2020-01-02 03:18] LABS: BILIRUBIN,URINE NEGATIVE (NEGATIVE); CLARITY,URINE CLEAR; COLOR,URINE YELLOW; GLUCOSE, URINE (UA) NEGATIVE (NEGATIVE); KETONES,URINE NEGATIVE (NEGATIVE); LEUKOCYTE ESTERASE ,URINE NEGATIVE (NEGATIVE); NITRITE,URINE NEGATIVE (NEGATIVE); PROTEIN,URINE NEGATIVE (NEGATIVE)
[2020-01-02 03:21] LABS: ALANINE AMINOTRANSFERASE 15 U/L (0-55); ALKALINE PHOSPHATASE 117 U/L (40-136); BILIRUBIN,TOTAL 0.4 MG/DL (0.1-1.0); BUN/CREATININE RATIO 9; CALCIUM 8.7 MG/DL (8.5-10.1); CARBON DIOXIDE 13 MMOL/L (21-32); CHLORIDE 111 MMOL/L (98-107); CREATININE SERUM 0.81 MG/DL (0.60-1.30); GFR ESTIMATED > 60; GLUCOSE 70 MG/DL (70-105); MAGNESIUM 1.8 MG/DL (1.6-2.4); POTASSIUM 3.2 MMOL/L (3.6-5.0); SODIUM 143 MMOL/L (135-145)
[2020-01-02 03:22] LABS: AMPHETAMINE SCREEN, URINE NEGATIVE (NEGATIVE); BARBITURATE SCREEN URINE NEGATIVE (NEGATIVE); BENZODIAZEPINES SCREEN URINE POSITIVE (NEGATIVE); CANNABINOID SCREEN, URINE POSITIVE (NEGATIVE); COCAINE SCREEN URINE NEGATIVE (NEGATIVE); METHADONE STAT NEGATIVE (NEGATIVE); METHAMPHETAMINE SCREEN URINE S NEGATIVE (NEGATIVE); OPIATE SCREEN URINE NEGATIVE (NEGATIVE); OXYCODONE STAT POSITIVE (NEGATIVE); PROPOXYPHENE STAT NEGATIVE (NEGATIVE); TRICYCLIC ANTIDEPRESSANTS SCRE NEGATIVE (NEGATIVE)
[2020-01-02 03:24] LABS: BACTERIA,URINE TRACE /HPF; RBC,URINE RARE /HPF
[2020-01-02] MEDS ORDERED: LACTATED RINGERS 1,000 ML IV ONE (03:24)
[2020-01-02] MEDS ORDERED: ONDANSETRON 4 MG/2 ML (SDV) Z0FRAN IV PRN (05:45)
[2020-01-02] MEDS ORDERED: NITROGLYCERIN 0.4 MG SL TABS BTL 25'S SL PRN (05:45)
[2020-01-02] MEDS ORDERED: LACTATED RINGERS 1,000 ML IV SCH (05:45)
[2020-01-02] MEDS ORDERED: morphine INJ 4 MG/ML 1 ML (VIAL/SYRINGE) IV PRN (05:45)
[2020-01-02] MEDS: KCL 20 MEQ TAB (K-DUR) PO SCH (05:54)
[2020-01-02] MEDS: POTASSIUM CL 10MEQ/50ML IVPB 50 ML IV SCH ×5 (05:54→11:38)
[2020-01-02] MEDS: MAGNESIUM 1 GM/100 ML IVPB 100 ML IV SCH (05:54)
[2020-01-02] MEDS ORDERED: RT-ALBUTEROL/IPRATROPIUM 3 ML (DUONEB) VIAL INH PRN (07:00)
--- NOTE | 2020-01-02 07:05 | Pulmonary Consultation ---
History of Present Illness History of Present Illness Date Seen by Provider: Jan 02, 2020 Time Seen by Provider: 06:59 Date of Admission Allergies and Home Medications Allergies Coded Allergies: acetaminophen (Verified Allergy, Unknown, Hives, 12/15/19) aspirin (Verified Allergy, Unknown, HIVES, 04/08/19) ibuprofen (Verified Allergy, Unknown, Hives, 12/15/19) Uncoded Allergies: TORDOL (Allergy, Unknown, 04/08/19) Home Medications Albuterol Sulfate 1 Puff Puff, 2 PUFF INH Q4H PRN for SHORTNESS OF BREATH, (Reported) Amlodipine Besylate 10 Mg Tablet, 10 MG PO DAILY, (Reported) Cetirizine HCl 10 Mg Tablet, 10 MG PO DAILY, (Reported) Cyclobenzaprine HCl 10 Mg Tablet, 10 MG PO Q8H Prescribed by: SANDRA PATEL on 03/03/19 0004 Desvenlafaxine Succinate 100 Mg Tab.er.24h, 100 MG PO HS, (Reported) Dexlansoprazole 60 Mg Cap.dr.bp, 60 MG PO DAILY, (Reported) Escitalopram Oxalate 10 Mg Tablet, 10 MG PO DAILY, (Reported) Gabapentin 300 Mg Capsule, 300 MG PO TID, (Reported) Levetiracetam 500 Mg Tablet, 500 MG PO BID, (Reported) Methylprednisolone 4 Mg Tab.ds.pk, 4 MG PO UD Prescribed by: SANDRA PATEL on 03/03/19 0004 Pantoprazole Sodium 40 Mg Tablet.dr, 40 MG PO DAILY, (Reported) Potassium Chloride 10 Meq Tablet.er, 10 MEQ PO BID, (Reported) Quetiapine Fumarate 100 Mg Tablet, 100 MG PO BID, (Reported) Ropinirole HCl 1 Mg Tablet, 1 MG PO BID PRN for RESTLESS LEGS, (Reported) Ropinirole HCl 3 Mg Tablet, 3 MG PO HS, (Reported) Zolpidem Tartrate 10 Mg Tablet, 10 MG PO HS, (Reported) Past Avgytky-Vfhpxv-Huodtw Hx Patient Social History Alcohol Use: Regular Use Recreational Drug Use: Yes Drug of Choice: cannabis Smoking Status: Current Everyday Smoker Type Used: Cigarettes 2nd Hand Smoke Exposure: Yes Recent Foreign Travel: No Contact w/Someone Who Travel: No Recent Infectious Disease Expo: No Recent Hopitalizations: No Physical Abuse: No Sexual Abuse: No Mistreated: No Fear: No Immunizations Up To Date Tetanus Booster (TDap): Unknown PED Vaccines UTD: Yes Date of Pneumonia Vaccine: Jul 27, 2006 Seasonal Allergies Seasonal Allergies: No Past Medical History Surgeries: Yes Cardiac, Coronary Stent, Gallbladder, Hysterectomy Respiratory: Yes Pulmonary Embolism, Sleep Apnea, COPD Currently Using CPAP: No Currently Using BIPAP: No Cardiac: Yes (CARDIAC STENTS ) Coronary Artery Disease, Heart Murmur, Hypertension 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, 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) Headaches /Migraines, Seizure Disorder : No 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 Disorders: 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, 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 Genitourinary: No Gastrointestinal: Yes Gastroesophageal Reflux, Chronic Constipation Musculoskeletal: Yes Osteoporosis, Arthritis, Chronic Back Pain Endocrine: No HEENT: Yes Cataract Cancer: Yes Breast, Ovarian, Uterine Did You Recieve Any Treatments: Yes What Type of Treatment Did You: Chemotherapy, Surgical Intervention Psychosocial: Yes Sleep Difficulties, PTSD, Schizophrenia, Depression Integumentary: No Blood Disorders: Yes (hx of anemia) Adverse Reaction/Blood Tranf: No Family Medical History Cardiovascular disease 19 FATHER 19 MOTHER Cataracts Completed stroke 19 FATHER 19 MOTHER G8 BROTHER (X3) Diabetes mellitus 19 FATHER 19 MOTHER G8 BROTHER BROTHER FH: breast cancer 19 MOTHER Hypertension 19 FATHER 19 MOTHER Myocardial infarction G8 BROTHER No Pertinent Family Hx Sepsis Event Evaluation Height, Weight, BMI Height: 5'5.00" Weight: 160lbs. 0.0oz. 72.315550wm; 23.00 BMI Method:Estimated Exam Exam Vital Signs Date Time Temp Pulse Resp B/P (MAP) Pulse Ox O2 Delivery O2 Flow Rate FiO2 01/02/20 06:00 75 75/53 (60) 91 Room Air 01/02/20 05:45 76 83/50 (61) 91 Room Air 01/02/20 05:30 76 28 81/50 (60) 93 Room Air 01/02/20 05:15 75 21 88/52 (64) 93 Room Air 01/02/20 05:00 71 27 88/54 (65) 93 Room Air 01/02/20 05:00 96 Room Air 01/02/20 04:45 70 20 94/57 (69) 94 Room Air 01/02/20 04:30 36.9 68 19 90/58 (69) 96 Room Air 01/02/20 04:29 67 01/02/20 03:58 37.1 69 14 101/58 98 Nasal Cannula 2.00 01/02/20 01:39 98 Nasal Cannula 2.00 01/02/20 01:39 37.0 91 16 131/92 (105) 98 Nasal Cannula 2.00 I & O 01/02/20 07:00 Intake Total 110 ml Balance 110 ml Height & Weight Height: 5'5.00" Weight: 160lbs. 0.0oz. 72.472961bw; 23.00 BMI Method:Estimated Capillary Refill: Less Than 3 Seconds Peripheral Pulses: 2+ Radial Pulses (R), 2+ Radial Pulses (L) Gastrointestinal: normal bowel sounds, non tender, soft, no organomegaly Results Lab Laboratory Tests 01/02/20 01:55 Assessment/Plan Assessment/Plan Leukocytosis r/o infection -UA is negative -Alarcon culturess -Check PCT -start rocephin and azithromycin Seizures acute and hx of -Continue Keppra -CT head report pending Currently unresponsive - secondary to meds vs post ictal -ABG reviewed -Check repeat accu check -Place pt on endtidal C02 CP -Cardiology following Pulmonary nodule -Will need f/U CT as out pt Marijuana -Education Tobacco dependance HX of COPD and PE ARVIN PATE DO Jan 02, 2020 07:05
[2020-01-02] MEDS ORDERED: cefTRIAXone FOR IV USE 1,000 MG in WATER (STERILE) FOR INJECTION 10 ML IV SCH (07:15)
[2020-01-02] MEDS ORDERED: FLU QUADRIvalent (5+ YOA) 2019-2020 (AFLURIA) 0.5 ML IM ONE (07:15)
[2020-01-02] MEDS ORDERED: AZITHROMYCIN INJECTION 500 MG in NS (IVPB) 250 ML IV SCH (07:15)
[2020-01-02] MEDS: RT-ALBUTEROL/IPRATROPIUM 3 ML (DUONEB) VIAL INH SCH ×3 (07:24→19:36)
[2020-01-02] MEDS ORDERED: LEVETIRACETAM 1,000 MG/NS 100 ML IVPB IV SCH ×2 (09:00)
[2020-01-02 09:12] LABS: CHOLESTEROL 192 MG/DL (< 200); HDL CHOLESTEROL 29 MG/DL (40-60); TRIGLYCERIDES 152 MG/DL (<150); VLDL CHOLESTEROL 30 MG/DL (5-40)
--- NOTE | 2020-01-02 09:15 | Diagnostic Imaging Report ---
PROCEDURE: CT head and CT cervical spine without contrast. TECHNIQUE: Multiple contiguous axial images were obtained through the brain and cervical spine without the use of intravenous contrast. Sagittal and coronal reformations through the cervical spine were then performed. Auto Exposure Controls were utilized during the CT exam to meet ALARA standards for radiation dose reduction. DATE: January 02, 2020. COMPARISON: CT head December 15, 2019. MRI brain May 30, 2017. INDICATION: 59-year-old female, seizures. Head and neck pain. FINDINGS: The ventricles and cerebral spinal fluid spaces are of normal size and configuration for the patient's age. There is no mass effect or midline shift. There is no acute intracranial hemorrhage. There is no abnormal extra-axial fluid collection. The visualized portions of the paranasal sinuses, mastoid air cells and middle ears are well aerated. There is no identified facet joint subluxation or dislocation. There is no asymmetric widening of the cervical disc spaces. There is no prominent prevertebral soft tissue swelling. There are bilateral normal variant ponticulus posticus. There is moderate disc height loss at C5-C6. There are mild endplate degenerative changes at this level. The additional cervical disc heights are well preserved. CT is limited for assessment of disc pathology as well as additional nonbony causes of pathology in the spinal canal. There is no identified acute fracture of the cervical spine. There is a potential 3 to 4 mm left upper lobe pulmonary nodule. There are carotid vascular calcifications. IMPRESSION: 1. No identified acute intracranial abnormality. 2. No identified acute abnormality of the cervical spine. 3. Potential 3 to 4 mm left upper lobe pulmonary nodule. Dictated by: Dictated on workstation # [id number]
--- NOTE | 2020-01-02 10:29 | Diagnostic Imaging Report ---
EXAMINATION: Chest radiograph, portable AP view. DATE: 01/02/2020 3:40 AM hours. INDICATION: 59-year-old female, shortness of breath. COMPARISON: December 15, 2019. FINDINGS: There is a left-sided port catheter with tip overlying the cavoatrial junction. Stable overall appearance of the cardiomediastinal silhouette. There is no identified pneumothorax. There is no large pleural effusion. There is no identified interval focal airspace consolidation. IMPRESSION: No identified acute cardiopulmonary abnormality. Dictated by: Dictated on workstation # [id number]
[2020-01-02] MEDS: D5 1/2 NS 1000 ML IV SOLUTION 1,000 ML IV SCH ×3 (10:30→22:31)
--- NOTE | 2020-01-02 13:37 | Consultation-Cardiology ---
HPI-Cardiology Cardiology Consultation: Date of Consultation 01/02/20 Time Seen by a Provider: 13:00 Date of Admission Attending Physician Clara Carreno MD Admitting Physician Osbaldo Adams DO Consulting Physician ELMER PARK MD, MA, FACP, FACC, [employer] [facility] [employer], CCDS HPI: Chief Complaint: CC: Chest discomfort HPI 59 yo woman with multiple comorbidities (see below) who is currently verbally unresponsive and unable to provide any history History and ROS of is obtained from her of 4 years who is currently by her bedside. I also spoke with Dr Peacock, the ER physician who admitted her this morning She and her had [id number]. She had one drink there. They come home, were getting ready for bed, she was in a chair, complained of chest discomfort and slumped over and became verbally unresponsive. called EMS. EMS noted seizure activity, but between seizures, she was responsive, according to Dr Peacock's notes. states he didn't see her during the time she was in the ambulance and for sometime in the ER, but he has not seen her responsive since the onset of unresponsiveness at home She has not lately been describing any cp or palp. She has a h/o seizure disorder. can't recall when the last one was (other than the ones she has come in with) She has a h/o multiple personality disorder (according to he ) and sees a therapist at [facility] Review of Systems-Cardiology Review of Systems Constitutional: other (she is verbally unresponsive; as far as ROS could be obtained from other sources is noted under HPI) All Other Systems Reviewed Negative Unless Noted: Yes [id number]-Hxbgaf Hx Patient Social History Alcohol Use: Regular Use Recreational Drug Use: Yes Drug of Choice: cannabis Smoking Status: Current Everyday Smoker Type Used: Cigarettes 2nd Hand Smoke Exposure: Yes Recent Foreign Travel: No Recent Infectious Disease Expo: No Hospitalization with Isolation: Denies Immunizations Up To Date Tetanus Booster (TDap): Unknown Date of Pneumonia Vaccine: Jul 27, 2006 Past Medical History PMH As described under Assessment. Family Medical History Family History: Cardiovascular disease 19 FATHER 19 MOTHER Cataracts Completed stroke 19 FATHER 19 MOTHER G8 BROTHER (X3) Diabetes mellitus 19 FATHER 19 MOTHER G8 BROTHER BROTHER FH: breast cancer 19 MOTHER Hypertension 19 FATHER 19 MOTHER Myocardial infarction G8 BROTHER Allergies and Home Medications Allergies Coded Allergies: acetaminophen (Verified Allergy, Unknown, Hives, 12/15/19) aspirin (Verified Allergy, Unknown, HIVES, 04/08/19) ibuprofen (Verified Allergy, Unknown, Hives, 12/15/19) Uncoded Allergies: TORDOL (Allergy, Unknown, 04/08/19) Home Medications Albuterol Sulfate 1 Puff Puff, 2 PUFF INH Q4H PRN for SHORTNESS OF BREATH, (Reported) Amlodipine Besylate 10 Mg Tablet, 10 MG PO DAILY, (Reported) Cetirizine HCl 10 Mg Tablet, 10 MG PO DAILY, (Reported) Cyclobenzaprine HCl 10 Mg Tablet, 10 MG PO Q8H Prescribed by: SANDRA PATEL on 03/03/19 0004 Desvenlafaxine Succinate 100 Mg Tab.er.24h, 100 MG PO HS, (Reported) Dexlansoprazole 60 Mg Cap.dr.bp, 60 MG PO DAILY, (Reported) Escitalopram Oxalate 10 Mg Tablet, 10 MG PO DAILY, (Reported) Gabapentin 300 Mg Capsule, 300 MG PO TID, (Reported) Levetiracetam 500 Mg Tablet, 500 MG PO BID, (Reported) Methylprednisolone 4 Mg Tab.ds.pk, 4 MG PO UD Prescribed by: SANDRA PATEL on 03/03/19 0004 Pantoprazole Sodium 40 Mg Tablet.dr, 40 MG PO DAILY, (Reported) Potassium Chloride 10 Meq Tablet.er, 10 MEQ PO BID, (Reported) Quetiapine Fumarate 100 Mg Tablet, 100 MG PO BID, (Reported) Ropinirole HCl 1 Mg Tablet, 1 MG PO BID PRN for RESTLESS LEGS, (Reported) Ropinirole HCl 3 Mg Tablet, 3 MG PO HS, (Reported) Zolpidem Tartrate 10 Mg Tablet, 10 MG PO HS, (Reported) Patient Home Medication List Home Medication List Reviewed: Yes Physical Exam-Cardiology Physical Exam Vital Signs/I&O 01/02/20 01/02/20 01/02/20 01/02/20 01:39 01:39 03:58 04:29 Temp 37.0 37.1 Pulse 91 69 67 Resp 16 14 B/P (MAP) 131/92 (105) 101/58 Pulse Ox 98 98 98 O2 Delivery Nasal Cannula Nasal Cannula Nasal Cannula O2 Flow Rate 2.00 2.00 2.00 01/02/20 01/02/20 01/02/20 01/02/20 04:30 04:45 05:00 05:00 Temp 36.9 Pulse 68 70 71 Resp 19 20 27 B/P (MAP) 90/58 (69) 94/57 (69) 88/54 (65) Pulse Ox 96 94 96 93 O2 Delivery Room Air Room Air Room Air Room Air 01/02/20 01/02/20 01/02/20 01/02/20 05:15 05:30 05:45 06:00 Pulse 75 76 76 75 Resp 21 28 B/P (MAP) 88/52 (64) 81/50 (60) 83/50 (61) 75/53 (60) Pulse Ox 93 93 91 91 O2 Delivery Room Air Room Air Room Air Room Air 01/02/20 01/02/20 01/02/20 01/02/20 07:00 07:00 07:15 07:26 Temp 36.5 Pulse 70 71 B/P (MAP) 96/57 (70) 89/50 (63) Pulse Ox 93 93 93 O2 Delivery Room Air Room Air Nasal Cannula O2 Flow Rate 2.00 01/02/20 01/02/20 01/02/20 01/02/20 07:30 07:45 08:00 08:00 Pulse 71 71 71 B/P (MAP) 94/53 (67) 85/54 (64) 85/54 (64) Pulse Ox 92 89 89 O2 Delivery Room Air Room Air Nasal Cannula Room Air O2 Flow Rate 2.00 01/02/20 01/02/20 01/02/20 01/02/20 09:00 10:27 11:00 11:50 Temp 36.5 36.8 Pulse 61 61 66 Resp 27 10 22 B/P (MAP) 99/59 (72) 91/55 (67) 99/58 (72) Pulse Ox 97 94 95 O2 Delivery Nasal Cannula Nasal Cannula O2 Flow Rate 2.00 2.00 2.00 2.00 01/02/20 01/02/20 12:00 12:07 Pulse 56 Resp 26 B/P (MAP) 88/54 (65) Pulse Ox 96 O2 Delivery Nasal Cannula Nasal Cannula O2 Flow Rate 2.00 2.00 2.00 Capillary Refill : Less Than 3 Seconds Constitutional: other (verbally unresponsive; does not appear in distress) HEENT: PERRL; No xanthelasmas are seen Neck: carotid pulses are 2 + bilaterally Respiratory: No accessory muscle use; other (good bilat air entry, diminished at the bases) Cardiovascular: regular rate-rhythm, S1 and S2, systolic murmur (soft BILL at card base) Gastrointestinal: No tender; soft; No guarding, No rebound; audible bowel sounds Extremities: No clubbing, No cyanosis, No significant edema Neurologic/Psychiatric: other (verbally unresponsive; does move in the bed and seems to move all limbs equally) Skin: No rash, No ulcerations Data Review Labs Laboratory Tests 01/02/20 01:45: Blood Gas Puncture Site LEFT RADIAL, Blood Gas Patient Temperature 37.0, Arterial Blood pH 7.28*L, Arterial Blood Partial Pressure CO2 33L, Arterial Blood Partial Pressure O2 62L, Arterial Blood HCO3 15*L, Arterial Blood Total CO2 15.9L, Arterial Blood Oxygen Saturation 90L, Arterial Blood Base Excess - 10.5L, Satish Test YES-POS, Blood Gas Ventilator Setting NO, Blood Gas Inspired Oxygen NOT INDICATED 01/02/20 01:55: White Blood Count 11.7H, Red Blood Count 4.14L, Hemoglobin 12.8, Hematocrit 38, Mean Corpuscular Volume 92, Mean Corpuscular Hemoglobin 31, Mean Corpuscular Hemoglobin Concent 34, Red Cell Distribution Width 15.2H, Platelet Count 455H, Mean Platelet Volume 9.0, Neutrophils (%) (Auto) 55, Lymphocytes (%) (Auto) 34, Monocytes (%) (Auto) 10, Eosinophils (%) (Auto) 1, Basophils (%) (Auto) 0, Neutrophils # (Auto) 6.4, Lymphocytes # (Auto) 4.0, Monocytes # (Auto) 1.1H, Eo sinophils # (Auto) 0.2, Basophils # (Auto) 0.0, Prothrombin Time 14.3, INR Comment 1.1, Activated Partial Thromboplast Time 20L, Sodium Level 143, Potassium Level 3.2L, Chloride Level 111H, Carbon Dioxide Level 13L, Anion Gap 19H, Blood Urea Nitrogen 7, Creatinine 0.81, Estimat Glomerular Filtration Rate > 60, BUN/Creatinine Ratio 9, Glucose Level 70, Calcium Level 8.7, Corrected Calcium 8.7, Magnesium Level 1.9, Total Bilirubin 0.4, Aspartate Amino Transf (AST/SGOT) 49H, Alanine Aminotransferase (ALT/SGPT) 15, Alkaline Phosphatase 117, Total Creatine Kinase 54, Myoglobin 32.1, Troponin I < 0.028, Total Protein 7.0, Albumin 4.0, Serum Alcohol 33H 01/02/20 03:05: Urine Color YELLOW, Urine Clarity CLEAR, Urine pH 6.0, Urine Specific [place] 1.020, Urine Protein NEGATIVE, Urine Glucose (UA) NEGATIVE, Urine Ketones NEGATIVE, Urine Nitrite NEGATIVE, Urine Bilirubin NEGATIVE, Urine Urobilinogen 0.2, Urine Leukocyte Esterase NEGATIVE, Urine RBC (Auto) TRACE-I, Urine RBC RARE, Urine WBC NONE, Urine Squamous Epithelial Cells 5-10, Urine Crystals NONE, Urine Bacteria TRACE, Urine Casts NONE, Urine Mucus SMALLH, Urine Culture Indicated NO, Urine Opiates Screen NEGATIVE, Urine Oxycodone Screen POSITIVEH, Urine Methadone Screen NEGATIVE, Urine Propoxyphene Screen NEGATIVE, Urine Barbiturates Screen NEGATIVE, Ur Tricyclic Antidepressants Screen NEGATIVE, Urine Phencyclidine Screen NEGATIVE, Urine Amphetamines Screen NEGATIVE, Urine Methamphetamines Screen NEGATIVE, Urine Benzodiazepines Screen POSITIVEH, Urine Cocaine Screen NEGATIVE, Urine Cannabinoids Screen POSITIVEH 01/02/20 03:07: Blood Gas Puncture Site LEFT RADIAL, Blood Gas Patient Temperature 37.0, Arterial Blood pH 7.30*L, Arterial Blood Partial Pressure CO2 35, Arterial Blood Partial Pressure O2 94H, Arterial Blood HCO3 17*L, Arterial Blood Total CO2 17.9L, Arterial Blood Oxygen Saturation 97, Arterial Blood Base Excess -8.4L, Satish Test YES-POS, Blood Gas Ventilator Setting NO, Blood Gas Inspired Oxygen 2L 01/02/20 03:23: Glucometer 81 01/02/20 08:30: Troponin I < 0.028, Triglycerides Level 152H, Cholesterol Level 192, LDL Cholesterol Direct 155H, VLDL Cholesterol 30, HDL Cholesterol 29L, Procalcitonin 0.05 01/02/20 10:12: Lactic Acid Level 0.66 01/02/20 12:19: Glucometer 114H Laboratory Tests 01/02/20 01:55 A/P-Cardiology Assessment/Admission Diagnosis Unresponsiveness of undetermined etiology Metabolic acidosis of undetermined etiology Chest pain w/o any evidence of ACS H/o coronary stent more than 5 years ago at [place], [place]. Details unknown Chronic tobacco use H/o uterine CA, reportedly metastatic but in remission (according to pt's ). 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
--- NOTE | 2020-01-02 13:44 | History & Physical-Hospitalist ---
History of Present Illness HPI/Chief Complaint Serina Abarca is a 59-year-old female with past medical history of hypertension, GERD, uterine cancer, ovarian cancer, breast cancer (all in remission and not on treatment), who presented with seizures. She is unable to provide the history due to her clinical condition but her is at the bedside. He reports that she was in her normal state of health yesterday and they went to the [facility] last night. She had one bloody Carlie. She does not drink alcohol every day. She had been complaining of chest pain around her port. He says that she is not having any fevers or chills. She is not complaining of shortness of breath. She was not having any abdominal pain, nausea, or vomiting. She had been taking all of her medications. He said she was following with a neurologist but she was not happy with the care she is getting because they kept trying to change her seizure medicines. He has a bag of her medications and there are no antiepileptics in the bag. He thinks it is a possibility that she has not been taking any antiepileptic medications. Source: patient Exam Limitations: no limitations Date Seen 01/02/20 Time Seen by a Provider: 09:55 Attending Physician Gordo Garcia MD PCP Osbaldo Adams DO Referring Physician Date of Admission Jan 02, 2020 at 03:40 Home Medications & Allergies Home Medications Reviewed patient Home Medication Reconciliation performed by pharmacy medication reconciliations blow mold technician and/or nursing. Patients Allergies have been reviewed. Allergies Allergies Coded Allergies acetaminophen (Verified Allergy, Unknown, Hives, 12/15/19) aspirin (Verified Allergy, Unknown, HIVES, 04/08/19) ibuprofen (Verified Allergy, Unknown, Hives, 12/15/19) Uncoded Allergies TORDOL ( Allergy, Unknown, 04/08/19) Past Xghsrbo-Gysgig-Zhcukq Hx Past Med/Social Hx: Reviewed Nursing Past Med/Soc Hx Patient Social History Alcohol Use: Regular Use Recreational Drug Use: Yes Drug of Choice: cannabis Smoking Status: Current Everyday Smoker Type Used: Cigarettes 2nd Hand Smoke Exposure: Yes Recent Foreign Travel: No Contact w/other who traveled: No Recent Hopitalizations: No Recent Infectious Disease Expo: No Immunizations Up To Date Tetanus Booster (TDap): Unknown Pediatric: Yes Date of Pneumonia Vaccine: Jul 27, 2006 Seasonal Allergies Seasonal Allergies: No Past Medical History Surgeries: Cardiac, Coronary Stent, Gallbladder, Hysterectomy Respiratory: COPD Currently Using CPAP: No Currently Using BIPAP: No Cardiac: Coronary Artery Disease, Heart Murmur, Hypertension Neurological: Headaches /Migraines, Seizure Disorder : No 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: Yes (hx of uterine and breast cancer) Hysterectomy, Menopausal Gastrointestinal: Gastroesophageal Reflux, Chronic Constipation Musculoskeletal: Osteoporosis, Arthritis, Chronic Back Pain HEENT: Cataract Cancer: Breast, Ovarian, Uterine Did You Recieve Any Treatments: Yes What Type of Treatment Did You: Chemotherapy, Surgical Intervention Psychosocial: Sleep Difficulties, PTSD, Schizophrenia, Depression History of Blood Disorders: Yes (hx of anemia) Adverse Reaction to Blood Sears: No Family History Cardiovascular disease 19 FATHER 19 MOTHER Cataracts Completed stroke 19 FATHER 19 MOTHER G8 BROTHER (X3) Diabetes mellitus 19 FATHER 19 MOTHER G8 BROTHER BROTHER FH: breast cancer 19 MOTHER Hypertension 19 FATHER 19 MOTHER Myocardial infarction G8 BROTHER No Pertinent Family Hx Review of Systems Constitutional: no symptoms reported, see HPI EENTM: no symptoms reported Respiratory: no symptoms reported Cardiovascular: chest pain Gastrointestinal: no symptoms reported Genitourinary: no symptoms reported Musculoskeletal: no symptoms reported Skin: no symptoms reported Psychiatric/Neurological: No Symptoms Reported Physical Exam Physical Exam Vital Signs Vital Signs - First Documented Capillary Refill : Less Than 3 Seconds Height, Weight, BMI Height: 5'5.00" Weight: 160lbs. 0.0oz. [id number]; 23.00 BMI Method:Estimated General Appearance: No Apparent Distress, WD/WN Neck: Normal Inspection, Supple Respiratory: Lungs Clear, Normal Breath Sounds, No Respiratory Distress, Other (Port in place on left chest wall without any surrounding erythema or fluctuance) Cardiovascular: Regular Rate, Rhythm, No Edema, No Murmur Gastrointestinal: Normal Bowel Sounds, Non Tender, Soft Extremity: Normal Inspection, Non Tender, No Pedal Edema Neurologic/Psychiatric: Other (Lethargic, moving all extremities with minimal stimulation) Skin: Normal Color, Warm/Dry Results Results/Procedures Labs Laboratory Tests 01/02/20 01:55 Patient resulted labs reviewed. Imaging: Reviewed Imaging Report Assessment/Plan Admission Diagnosis Seizures Admission Status: Inpatient Order (span 2 midnights) Reason for Inpatient Admission: Seizures requiring antiepileptic drugs and further evaluation Assessment and Plan Seizures High anion gap metabolic acidosis Hypokalemia Acute encephalopathy CT head without acute abnormalities Potassium mildly decreased, electrolytes otherwise within normal limits Possibly nonadherent with AEDs Loaded with Keppra, continue Lethargy possibly medication related with Keppra Continue to monitor and if no improvement in may pursue MRI Chest pain Port externally well appearing No evidence of the sepsis or systemic infection Obtain blood cultures Troponin negative 2 Chest x-ray with no acute abnormality Procalcitonin normal, consider discontinuing antibiotics Cardiology consulted, appreciate assistance Hypertension GERD Continue home meds when able DVT prophylaxis: Lovenox Diagnosis/Problems Diagnosis/Problems (1) Seizures Status: Acute (2) Acute encephalopathy Status: Acute (3) Chest pain Status: Acute Qualifiers: Chest pain type: unspecified Qualified Codes: R07.9 - Chest pain, unspecified (4) High anion gap metabolic acidosis Status: Acute Clinical Quality Measures DVT/VTE Risk/Contraindication: Risk Factor Score Per Nursin RFS Level Per Nursing on Admit: 4+=Very High GORDO GARCIA MD Jan 02, 2020 13:44
[2020-01-02] MEDS ORDERED: CLOPIDOGREL 75 MG (PLAVIX) TABLET PO ONE (14:00)
[2020-01-02] MEDS ORDERED: SODIUM BICARBONATE 8.4% VIAL 75 MEQ in 1/2 NS IV SOLUTION 1,000 ML IV SCH (14:00)
[2020-01-02] MEDS ORDERED: ENOXAPARIN 40 MG/0.4 ML (LOVENOX) SYR SC SCH (14:00)
[2020-01-02 14:35] LABS: BUN/CREATININE RATIO 13; CALCIUM 7.8 MG/DL (8.5-10.1); CARBON DIOXIDE 21 MMOL/L (21-32); CHLORIDE 114 MMOL/L (98-107); CREATININE SERUM 0.68 MG/DL (0.60-1.30); GFR ESTIMATED > 60; GLUCOSE 93 MG/DL (70-105); POTASSIUM 4.4 MMOL/L (3.6-5.0); SODIUM 142 MMOL/L (135-145)
--- NOTE | 2020-01-02 15:40 | NUR ---
RN called to bedside by at this time. Pt currently seizing. PRN ativan given 1mg. Pt continued to seize for approximately 3 minutes total. Second dose of 1mg given and Dr. Carreno notified. Pt stopped seizing post second dose of ativan. New orders received to give 2mg for seizures and give another dose of Keppra now.
[2020-01-02] MEDS: LORazepam INJ 2 MG/ML (ATIVAN) VIAL IV PRN ×6 (15:45→23:53)
[2020-01-02] MEDS ORDERED: LEVETIRACETAM INJECTION 1,000 MG in NS (IVPB) 100 ML IV ONE (16:00)
--- NOTE | 2020-01-02 16:19 | NUR ---
Family alerted RN to pt's room again at this time. Pt appears to be having another seizure. 2 mg of ativan given at this time per Dr. Carreno. Post seizure pt stated "I am cold." Pt remains lethargic but able to respond. Keppra infusing at this time. Will continue to closely monitor.
--- NOTE | 2020-01-02 18:55 | NUR ---
RN called to pt's room at this time by family. Pt jerking in bed at this time. This RN performed sternal rub during seizure-like activity, causing pt to open her eyes at this time and seizure activity stopped. When questioned by this RN, "are you ok?" Patient responded, "yes, where is Peggy?" at bedside responded that Peggy is the goat the pt cares for at home. When pt was questioned by RN about caring for the goat. Pt responded "yes". RN asked if pt needed anything at this time and pt then stated "Drink?" RN questioned "what type of drink would you like?" and Pt responded, "Dr. Rivera". After informing pt of drink options within unit pt requested sprite. Dr. Carreno informed of events.
[2020-01-02] MEDS: LEVETIRACETAM 1,000 MG/NS 100 ML IVPB IV SCH ×2 (22:24)
[2020-01-02] MEDS: HYDROcodone/APAP 5 MG/325 MG (LORTAB) TAB PO PRN (22:24)
--- NOTE | 2020-01-02 23:15 | NUR ---
Notified EICU that ativan order for seizures is every 6 hours. Patient has already received two doses in the last hour for seizure like activity. Dr. Grace aware and orders received.
[2020-01-03] VITALS (10 sets, daily range): BP systolic 94–130; BP diastolic 44–93
[2020-01-03] MEDS: LORazepam INJ 2 MG/ML (ATIVAN) VIAL IV PRN ×2 (01:05→06:50)
--- NOTE | 2020-01-03 01:27 | NUR ---
Patient continually having seizure like activity, lasting no more than 5 minutes at a time. Patient does not open eyes or respond to this nurse but does sing a healing song and wave hand up and down. Patient did state "pain" and when asked where stated "spine". Discussed with EICU to give some home medications, as patient was able to swallow pills just fine. This RN has sternal rubbed patient during her seizures and called her name and she has calmed down with this approach. is at bedside. Will continue to monitor.
[2020-01-03] MEDS: GABAPENTIN 300 MG (NEURONTIN) CAP PO SCH ×2 (01:41→07:16)
[2020-01-03] MEDS ORDERED: CYCLOBENZAPRINE 10 MG (FLEXERIL) TAB PO PRN (01:45)
[2020-01-03 03:55] LABS: BASOPHILS % (AUTO) 0 % (0-10); EOSINOPHILS # (AUTO) 0.2 10^3/uL (0.0-0.3); EOSINOPHILS % (AUTO) 2 % (0-10); HEMATOCRIT 35 % (35-52); HEMOGLOBIN 11.6 G/DL (11.5-16.0); LYMPHOCYTES # (AUTO) 2.6 X 10^3 (1.0-4.0); LYMPHOCYTES % (AUTO) 36 % (12-44); MEAN CORPUSCULAR HEMOGLOBIN 31 PG (25-34); MEAN CORPUSCULAR HGB CONC 33 G/DL (32-36); MEAN CORPUSCULAR VOLUME 93 FL (80-99); MEAN PLATELET VOLUME 8.9 FL (7.4-10.4); MONOCYTES # (AUTO) 0.6 X 10^3 (0.0-1.0); MONOCYTES % (AUTO) 8 % (0-12); NEUTROPHILS # (AUTO) 3.9 X 10^3 (1.8-7.8); NEUTROPHILS % (AUTO) 54 % (42-75); PLATELET COUNT 364 10^3/uL (130-400); RED CELL DISTRIBUTION WIDTH 15.3 % (10.0-14.5); WHITE BLOOD COUNT 7.3 10^3/uL (4.3-11.0)
[2020-01-03] MEDS: HYDROcodone/APAP 5 MG/325 MG (LORTAB) TAB PO PRN (04:16)
[2020-01-03 04:18] LABS: BUN/CREATININE RATIO 10; CALCIUM 8.4 MG/DL (8.5-10.1); CARBON DIOXIDE 23 MMOL/L (21-32); CHLORIDE 109 MMOL/L (98-107); CREATININE SERUM 0.68 MG/DL (0.60-1.30); GFR ESTIMATED > 60; GLUCOSE 76 MG/DL (70-105); MAGNESIUM 1.8 MG/DL (1.6-2.4); POTASSIUM 3.9 MMOL/L (3.6-5.0); SODIUM 141 MMOL/L (135-145)
[2020-01-03 04:44] LABS: CHOLESTEROL 190 MG/DL (< 200); HDL CHOLESTEROL 29 MG/DL (40-60); TRIGLYCERIDES 128 MG/DL (<150); VLDL CHOLESTEROL 26 MG/DL (5-40)
--- NOTE | 2020-01-03 04:45 | Pulmonary Progress Note ---
Subjective Time Seen by a Provider: 04:37 Subjective/Events-last exam Pt is more alert however still lethargic Sepsis Event Evaluation Height, Weight, BMI Height: 5'5.00" Weight: 160lbs. 0.0oz. 72.149706pw; 23.00 BMI Method:Estimated Focused Exam Lactate Level 01/02/20 10:12: Lactic Acid Level 0.66 Exam Exam Vital Signs Date Time Temp Pulse Resp B/P (MAP) Pulse Ox O2 Delivery O2 Flow Rate FiO2 01/03/20 03:58 36.5 01/03/20 03:15 100 Nasal Cannula 2.00 01/03/20 03:00 75 19 130/93 (105) 100 Nasal Cannula 1.50 01/03/20 02:00 78 28 101/51 (68) 100 Nasal Cannula 1.50 01/03/20 01:00 81 01/03/20 01:00 81 107/65 (79) 100 Nasal Cannula 1.50 01/03/20 00:00 37.2 01/03/20 00:00 92 Nasal Cannula 1.50 01/03/20 00:00 65 13 94/51 (65) 99 Nasal Cannula 1.50 01/02/20 23:46 82 104/47 (66) 99 Nasal Cannula 1.50 01/02/20 23:00 79 13 93/45 (61) 100 Nasal Cannula 1.50 01/02/20 22:00 63 23 111/54 (73) 94 Nasal Cannula 1.50 01/02/20 21:00 56 26 96/66 (76) 92 Nasal Cannula 1.50 01/02/20 20:02 75 22 90 Nasal Cannula 1.50 01/02/20 20:00 90 Room Air 01/02/20 20:00 75 27 97/50 (66) 88 Room Air 01/02/20 20:00 36.4 01/02/20 19:50 77 16 92 Room Air 01/02/20 19:36 96 Room Air 01/02/20 19:00 75 9 105/60 (75) 98 Nasal Cannula 2.00 01/02/20 19:00 75 01/02/20 18:00 58 101/55 (70) 99 Nasal Cannula 2.00 2.00 01/02/20 17:00 64 96/54 (68) 95 Nasal Cannula 2.00 2.00 01/02/20 16:00 89 84/53 (63) 96 Nasal Cannula 2.00 2.00 01/02/20 16:00 36.7 01/02/20 16:00 Nasal Cannula 2.00 01/02/20 15:31 96 Nasal Cannula 2.00 01/02/20 15:00 52 17 98/62 (74) 96 Nasal Cannula 2.00 2.00 01/02/20 14:00 56 21 101/65 (77) 96 Nasal Cannula 2.00 2.00 01/02/20 13:00 58 26 101/61 (74) 96 Nasal Cannula 2.00 2.00 01/02/20 13:00 61 01/02/20 12:07 56 26 88/54 (65) 96 Nasal Cannula 2.00 2.00 01/02/20 12:00 Nasal Cannula 2.00 01/02/20 11:50 36.8 01/02/20 11:00 66 22 99/58 (72) 95 Nasal Cannula 2.00 2.00 01/02/20 10:27 36.5 61 10 91/55 (67) 94 Nasal Cannula 2.00 2.00 01/02/20 09:00 61 27 99/59 (72) 97 01/02/20 08:00 71 85/54 (64) 89 Room Air 01/02/20 08:00 Nasal Cannula 2.00 01/02/20 07:45 71 85/54 (64) 89 Room Air 01/02/20 07:30 71 94/53 (67) 92 Room Air 01/02/20 07:26 93 Nasal Cannula 2.00 01/02/20 07:15 71 89/50 (63) 93 Room Air 01/02/20 07:00 70 96/57 (70) 93 Room Air 01/02/20 07:00 66 01/02/20 07:00 36.5 01/02/20 06:00 75 75/53 (60) 91 Room Air 01/02/20 05:45 76 83/50 (61) 91 Room Air 01/02/20 05:30 76 28 81/50 (60) 93 Room Air 01/02/20 05:15 75 21 88/52 (64) 93 Room Air 01/02/20 05:00 71 27 88/54 (65) 93 Room Air 01/02/20 05:00 96 Room Air 01/02/20 04:45 70 20 94/57 (69) 94 Room Air I & O 01/03/20 07:00 Intake Total 1140 ml Output Total 1900 ml Balance -760 ml Height & Weight Height: 5'5.00" Weight: 160lbs. 0.0oz. 72.892598us; 23.00 BMI Method:Estimated General Appearance: No Apparent Distress, WD/WN Neck: Normal Inspection, Supple Respiratory: Lungs Clear, Normal Breath Sounds, No Respiratory Distress, Other (Port in place on left chest wall without any surrounding erythema or fluctuance) Cardiovascular: Regular Rate, Rhythm, No Edema, No Murmur Capillary Refill: Less Than 3 Seconds Peripheral Pulses: 2+ Radial Pulses (R), 2+ Radial Pulses (L) Gastrointestinal: normal bowel sounds, non tender, soft, no organomegaly Extremity: Normal Inspection, Non Tender, No Pedal Edema Neurologic/Psychiatric: Other (Lethargic, moving all extremities with minimal stimulation) Skin: Normal Color, Warm/Dry Results Lab Laboratory Tests 01/02/20 01:55 01/02/20 14:05 01/03/20 03:37 Assessment/Plan Assessment/Plan Leukocytosis r/o infection -- resolved -PCT neg - repeat if still neg D/c Abx -UA is negative -Alarcon culturess - rocephin and azithromycin Seizures acute and hx of -Continue Keppra -Check neurontin level -CT head - neg without contrast Lung nodule hx of ovarian cancer -Check CT of head, chest/abd//pelvis all with contrast Lethargy - secondary to meds vs post ictal -Procalcitonin pending -ABG reviewed -Check repeat accu check -endtidal C02 CP -Cardiology following Pulmonary nodule -Will need f/U CT as out pt Marijuana -Education Tobacco dependance HX of COPD and PE DVT ppx -Lovenox ARVIN PATE DO Jan 03, 2020 04:45
[2020-01-03 06:05] LABS: ABG BASE EXCESS 1.7 MMOL/L (-2.5-2.5); ABG OXYGEN SATURATION 96 % (94-100); ABG PCO2 39 MMHG (35-45); ABG PH 7.43 (7.37-7.43); ABG PO2 75 MMHG (79-93); ABG TCO2 26.9 MMOL/L (21.0-31.0); ALLENS TEST YES-POS
[2020-01-03 06:06] LABS: INSPIRED O2 0.5L; PATIENT TEMP N; VENTILATOR NO
[2020-01-03 06:17] LABS: ALANINE AMINOTRANSFERASE 22 U/L (0-55); ALBUMIN 3.1 GM/DL (3.2-4.5); ALKALINE PHOSPHATASE 101 U/L (40-136); AMMONIA 27 UMOL/L (11-32); BILIRUBIN,TOTAL 0.3 MG/DL (0.1-1.0); BUN/CREATININE RATIO 10; CALCIUM 8.2 MG/DL (8.5-10.1); CARBON DIOXIDE 24 MMOL/L (21-32); CHLORIDE 108 MMOL/L (98-107); CREATININE SERUM 0.69 MG/DL (0.60-1.30); GFR ESTIMATED > 60; GLUCOSE 90 MG/DL (70-105); POTASSIUM 4.5 MMOL/L (3.6-5.0); SODIUM 139 MMOL/L (135-145); TOTAL PROTEIN 5.6 GM/DL (6.4-8.2)
[2020-01-03] MEDS: POTASSIUM CL 10MEQ/50ML IVPB 50 ML IV SCH (06:46)
[2020-01-03] MEDS: MAGNESIUM 1 GM/100 ML IVPB 100 ML IV SCH (06:46)
[2020-01-03] MEDS: D5 1/2 NS 1000 ML IV SOLUTION 1,000 ML IV SCH (06:46)
[2020-01-03] MEDS: KCL 20 MEQ TAB (K-DUR) PO SCH (06:46)
--- NOTE | 2020-01-03 07:11 | Diagnostic Imaging Report ---
INDICATION: Dyspnea COMPARISON: 01/02/2020 FINDINGS: Single frontal view of the chest demonstrates stable heart size and pulmonary vascularity. The lungs are well aerated and clear. No large pleural effusion or pneumothorax is seen. The visualized osseous structures show no acute abnormalities. IMPRESSION: 1. No acute cardiopulmonary process. Dictated by: Dictated on workstation # [id number]
[2020-01-03] MEDS ORDERED: LACTATED RINGERS 1,000 ML IV ONE (08:01)
[2020-01-03] MEDS ORDERED: LACTATED RINGERS 1,000 ML IV SCH (08:15)
[2020-01-03] MEDS ORDERED: CLOPIDOGREL 75 MG (PLAVIX) TABLET PO SCH (09:00)
[2020-01-03] MEDS: RT-ALBUTEROL/IPRATROPIUM 3 ML (DUONEB) VIAL INH SCH (09:07)
--- NOTE | 2020-01-03 09:43 | Progress Note - Cardiology ---
Cardiology SOAP Progress Note Subjective: Feels well today Doesn't report any cp (today or yesterday) No shortness of breath or palp or syncope No n/v/d Wishes to go home Objective: I&O/Vital Signs 01/02/20 01/02/20 01/02/20 01/03/20 22:00 23:00 23:46 00:00 Pulse 63 79 82 65 Resp 23 13 13 B/P (MAP) 111/54 (73) 93/45 (61) 104/47 (66) 94/51 (65) Pulse Ox 94 100 99 99 O2 Delivery Nasal Cannula Nasal Cannula Nasal Cannula Nasal Cannula O2 Flow Rate 1.50 1.50 1.50 1.50 01/03/20 01/03/20 01/03/20 01/03/20 00:00 00:00 01:00 01:00 Temp 37.2 Pulse 81 81 B/P (MAP) 107/65 (79) Pulse Ox 92 100 O2 Delivery Nasal Cannula Nasal Cannula O2 Flow Rate 1.50 1.50 01/03/20 01/03/20 01/03/20 01/03/20 02:00 03:00 03:15 03:58 Temp 36.5 Pulse 78 75 Resp 28 19 B/P (MAP) 101/51 (68) 130/93 (105) Pulse Ox 100 100 100 O2 Delivery Nasal Cannula Nasal Cannula Nasal Cannula O2 Flow Rate 1.50 1.50 2.00 01/03/20 01/03/20 01/03/20 01/03/20 04:00 04:15 05:38 06:00 Pulse 74 53 68 Resp 23 19 14 B/P (MAP) 97/44 (61) 115/76 (89) 97/84 (88) Pulse Ox 92 97 92 O2 Delivery Nasal Cannula Nasal Cannula Nasal Cannula Nasal Cannula O2 Flow Rate 1.50 1.50 1.50 1.50 01/03/20 01/03/20 01/03/20 01/03/20 07:00 07:00 07:16 08:00 Temp 36.9 Pulse 77 76 73 Resp 17 16 B/P (MAP) 108/76 (87) 98/56 (70) Pulse Ox 97 98 O2 Delivery Room Air Room Air 01/03/20 01/03/20 09:00 09:07 Pulse 74 B/P (MAP) 100/55 (70) Pulse Ox 95 98 O2 Delivery Room Air Room Air 01/03/20 00:00 Intake Total 320 ml Output Total 1250 ml Balance -930 ml Weight (Pounds): 160 Weight (Ounces): 0.0 Weight (Calculated Kilograms): 72.007128 Constitutional: AAO x 3, well-developed, well-nourished Respiratory: No accessory muscle use; other (good bilat air entry, diminished at the bases) Cardiovascular: regular rate-rhythm, S1 and S2, systolic murmur (soft BILL at card base) Gastrointestional: No tender; soft; No guarding, No rebound; audible bowel sounds Extremities: No clubbing, No cyanosis, No significant edema Neurologic/Psychiatric: oriented x 3, other (moves all limbs equally) Skin: No rash, No ulcerations Results/Procedures: Labs Laboratory Tests 01/02/20 10:12: Lactic Acid Level 0.66 01/02/20 12:19: Glucometer 114H 01/02/20 14:05: Sodium Level 142, Potassium Level 4.4, Chloride Level 114H, Carbon Dioxide Level 21, Anion Gap 7, Blood Urea Nitrogen 9, Creatinine 0.68, Estimat Glomerular Filtration Rate > 60, BUN/Creatinine Ratio 13, Glucose Level 93, Calcium Level 7.8L, Troponin I < 0.028 01/02/20 16:08: Glucometer 78 01/02/20 20:27: Glucometer 122H 01/02/20 23:30: 01/03/20 03:37: White Blood Count 7.3, Red Blood Count 3.78L, Hemoglobin 11.6, Hematocrit 35, Mean Corpuscular Volume 93, Mean Corpuscular Hemoglobin 31, Mean Corpuscular Hemoglobin Concent 33, Red Cell Distribution Width 15.3H, Platelet Count 364, Mean Platelet Volume 8.9, Neutrophils (%) (Auto) 54, Lymphocytes (%) (Auto) 36, Monocytes (%) (Auto) 8, Eosinophils (%) (Auto) 2, Basophils (%) (Auto) 0, Neutrophils # (Auto) 3.9, Lymphocytes # (Auto) 2.6, Monocytes # (Auto) 0.6, Eosinophils # (Auto) 0.2, Basophils # (Auto) 0.0, Sodium Level 141, Potassium Level 3.9, Chloride Level 109H, Carbon Dioxide Level 23, Anion Gap 9, Blood Urea Nitrogen 7, Creatinine 0.68, Estimat Glomerular Filtration Rate > 60, BUN/Creatinine Ratio 10, Glucose Level 76, Calcium Level 8.4L, Phosphorus Level 3.0, Magnesium Level 1.8, Triglycerides Level 128, Cholesterol Level 190, LDL Cholesterol Direct 148H, VLDL Cholesterol 26, HDL Cholesterol 29L 01/03/20 05:44: Sodium Level 139, Potassium Level 4.5, Chloride Level 108H, Carbon Dioxide Level 24, Anion Gap 7, Blood Urea Nitrogen 7, Creatinine 0.69, Estimat Glomerular Filtration Rate > 60, BUN/Creatinine Ratio 10, Glucose Level 90, Calcium Level 8.2L, Corrected Calcium 8.9, Total Bilirubin 0.3, Aspartate Amino Transf (AST /SGOT) 30, Alanine Aminotransferase (ALT/SGPT) 22, Alkaline Phosphatase 101, Ammonia 27, Total Protein 5.6L, Albumin 3.1L, Procalcitonin 0.03 01/03/20 05:59: Blood Gas Puncture Site RIGHT RADIAL, Blood Gas Patient Temperature N, Arterial Blood pH 7.43, Arterial Blood Partial Pressure CO2 39, Arterial Blood Partial Pressure O2 75L, Arterial Blood HCO3 26, Arterial Blood Total CO2 26.9, Arterial Blood Oxygen Saturation 96, Arterial Blood Base Excess 1.7, Satish Test YES-POS, Blood Gas Ventilator Setting NO, Blood Gas Inspired Oxygen 0.5L Laboratory Tests 01/02/20 01:55 01/02/20 14:05 01/03/20 03:37 01/03/20 05:44 A/P: Assessment: Unresponsiveness of undetermined etiology Metabolic acidosis of undetermined etiology Chest pain w/o any evidence of ACS H/o coronary stent more than 5 years ago at [place], [place]. Details unknown Chronic tobacco use H/o uterine CA, reportedly metastatic but in remission (according to pt's ). 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
[2020-01-03] MEDS ORDERED: CLOP75TA28 PO (09:49)
--- NOTE | 2020-01-03 11:57 | Discharge Summary ---
Diagnosis/Chief Complaint Date of Admission Jan 02, 2020 at 03:40 Date of Discharge Discharge Date: Jan 03, 2020 Admission Diagnosis Seizures Primary Care Osbaldo Adams DO Discharge Diagnosis (1) Seizures Status: Acute (2) Acute encephalopathy Status: Acute (3) Chest pain Status: Acute (4) High anion gap metabolic acidosis Status: Acute Discharge Summary Discharge Physical Exam Allergies: Coded Allergies: acetaminophen (Verified Allergy, Unknown, Hives, 12/15/19) aspirin (Verified Allergy, Unknown, HIVES, 04/08/19) ibuprofen (Verified Allergy, Unknown, Hives, 12/15/19) Uncoded Allergies: TORDOL (Allergy, Unknown, 04/08/19) Vitals & I&Os Vital Signs Date Time Temp Pulse Resp B/P (MAP) Pulse Ox O2 Delivery O2 Flow Rate FiO2 01/03/20 11:17 36.6 01/03/20 09:07 98 Room Air 01/03/20 09:00 74 100/55 (70) 01/03/20 08:00 16 01/03/20 06:00 1.50 Hospital Course Labs (last 24 hrs) Laboratory Tests 01/02/20 12:19: Glucometer 114H 01/02/20 14:05: Sodium Level 142, Potassium Level 4.4, Chloride Level 114H, Carbon Dioxide Level 21, Anion Gap 7, Blood Urea Nitrogen 9, Creatinine 0.68, Estimat Glomerular Filtration Rate > 60, BUN/Creatinine Ratio 13, Glucose Level 93, Calcium Level 7.8L, Troponin I < 0.028 01/02/20 16:08: Glucometer 78 01/02/20 20:27: Glucometer 122H 01/02/20 23:30: 01/03/20 03:37: White Blood Count 7.3, Red Blood Count 3.78L, Hemoglobin 11.6, Hematocrit 35, Mean Corpuscular Volume 93, Mean Corpuscular Hemoglobin 31, Mean Corpuscular Hemoglobin Concent 33, Red Cell Distribution Width 15.3H, Platelet Count 364, Mean Platelet Volume 8.9, Neutrophils (%) (Auto) 54, Lymphocytes (%) (Auto) 36, Monocytes (%) (Auto) 8, Eosinophils (%) (Auto) 2, Basophils (%) (Auto) 0, Neutrophils # (Auto) 3.9, Lymphocytes # (Auto) 2.6, Monocytes # (Auto) 0.6, Eosinophils # (Auto) 0.2, Basophils # (Auto) 0.0, Sodium Level 141, Potassium Level 3.9, Chloride Level 109H, Carbon Dioxide Level 23, Anion Gap 9, Blood Urea Nitrogen 7, Creatinine 0.68, Estimat Glomerular Filtration Rate > 60, BUN/Creatinine Ratio 10, Glucose Level 76, Calcium Level 8.4L, Phosphorus Level 3.0, Magnesium Level 1.8, Triglycerides Level 128, Cholesterol Level 190, LDL Cholesterol Direct 148H, VLDL Cholesterol 26, HDL Cholesterol 29L 01/03/20 05:44: Sodium Level 139, Potassium Level 4.5, Chloride Level 108H, Carbon Dioxide Level 24, Anion Gap 7, Blood Urea Nitrogen 7, Creatinine 0.69, Estimat Glomerular Fi ltration Rate > 60, BUN/Creatinine Ratio 10, Glucose Level 90, Calcium Level 8.2L, Corrected Calcium 8.9, Total Bilirubin 0.3, Aspartate Amino Transf (AST/SGOT) 30, Alanine Aminotransferase (ALT/SGPT) 22, Alkaline Phosphatase 101, Ammonia 27, Total Protein 5.6L, Albumin 3.1L, Procalcitonin 0.03 01/03/20 05:59: Blood Gas Puncture Site RIGHT RADIAL, Blood Gas Patient Temperature N, Arterial Blood pH 7.43, Arterial Blood Partial Pressure CO2 39, Arterial Blood Partial Pressure O2 75L, Arterial Blood HCO3 26, Arterial Blood Total CO2 26.9, Arterial Blood Oxygen Saturation 96, Arterial Blood Base Excess 1.7, Satish Test YES-POS, Blood Gas Ventilator Setting NO, Blood Gas Inspired Oxygen 0.5L 01/03/20 11:43: Glucometer 137H Patient resulted labs reviewed. Pending Labs Laboratory Tests 01/03/20 05:44: Sodium Level 139, Potassium Level 4.5, Chloride Level 108, Carbon Dioxide Level 24, Anion Gap 7, Blood Urea Nitrogen 7, Creatinine 0.69, Estimat Glomerular Filtration Rate > 60, BUN/Creatinine Ratio 10, Glucose Level 90, Calcium Level 8.2, Corrected Calcium 8.9, Total Bilirubin 0.3, Aspartate Amino Transf (A ST/SGOT) 30, Alanine Aminotransferase (ALT/SGPT) 22, Alkaline Phosphatase 101, Ammonia 27, Total Protein 5.6, Albumin 3.1, Procalcitonin 0.03, Gabapentin Level [Pending] 01/03/20 05:59: Blood Gas Puncture Site RIGHT RADIAL, Blood Gas Patient Temperature N, Arterial Blood pH 7.43, Arterial Blood Partial Pressure CO2 39, Arterial Blood Partial Pressure O2 75, Arterial Blood HCO3 26, Arterial Blood Total CO2 26.9, Arterial Blood Oxygen Saturation 96, Arterial Blood Base Excess 1.7, Satish Test YES-POS, Blood Gas Ventilator Setting NO, Blood Gas Inspired Oxygen 0.5L 01/03/20 11:43: Glucometer 137 Imaging: Reviewed Imaging Report Discharge Home Medications: Active Scripts Active Clopidogrel (Clopidogrel Bisulfate) 75 Mg Tablet 75 Mg PO DAILY Cyclobenzaprine HCl 10 Mg Tablet 10 Mg PO Q8H Medrol (Methylprednisolone) 4 Mg Tab.ds.pk 4 Mg PO UD Reported Naproxen 500 Mg Tablet Prazosin HCl 1 Mg Capsule Gabapentin 300 Mg Capsule 300 Mg PO TID Escitalopram Oxalate 10 Mg Tablet 10 Mg PO DAILY Pantoprazole Sodium 40 Mg Tablet.dr 40 Mg PO DAILY Levetiracetam 500 Mg Tablet 500 Mg PO BID Zolpidem Tartrate 10 Mg Tablet 10 Mg PO HS Quetiapine Fumarate 100 Mg Tablet 100 Mg PO BID Amlodipine Besylate 10 Mg Tablet 10 Mg PO DAILY Proair Hfa (Albuterol Sulfate) 1 Puff Puff 2 Puff INH Q4H PRN Desvenlafaxine Succinate ER (Desvenlafaxine Succinate) 100 Mg Tab.er.24h 100 Mg PO HS Potassium Chloride 10 Meq Tablet.er 10 Meq PO BID Ropinirole HCl 3 Mg Tablet 3 Mg PO HS Cetirizine HCl 10 Mg Tablet 10 Mg PO DAILY Dexilant (Dexlansoprazole) 60 Mg Cap.dr.bp 60 Mg PO DAILY Ropinirole HCl 1 Mg Tablet 1 Mg PO BID PRN Instructions to patient/family Please see electronic discharge instructions given to patient. Clinical Quality Measures DVT/VTE Risk/Contraindication: Risk Factor Score Per Nursin RFS Level Per Nursing on Admit: 4+=Very High Problem Qualifiers (1) Chest pain: Chest pain type: unspecified Qualified Codes: R07.9 - Chest pain, unspecified JERICA RUEDA MD Jan 03, 2020 11:57
[2020-01-03] MEDS: LEVETIRACETAM 1,000 MG/NS 100 ML IVPB IV SCH ×2 (12:33)
--- NOTE | 2020-01-03 12:34 | NUR ---
MIKE ADMINISTERED LATE DUE TO LATE ARRIVAL FROM PHARMACY
--- NOTE | 2020-01-03 13:15 | NUR ---
CM/SS to assess for needs upon discharge. Plan: The patient will return home with her spouse. She is seeing a therapist Harry Luong who also provides her medications for her mental health diagnosis. Per the hospitalist, the patient is still having positive symptoms with her schizophrenia such as delusions and hallucinations. However, when CM/SS asked if she felt her medication was affective in treating her schizophrenia she stated "oh, yes". The patient does not have a follow up appointment with her therapist but stated she will make one. The patient and her stated they do not have any other questions, needs, or concerns at this time.
--- NOTE | 2020-01-03 13:17 | NUR ---
Guerrero catheter removed at 0930 per 's orders. 1215 patient voided 300ml without difficulty. Follow up appointment with and scheduled for the patient. Patient advised to schedule a follow up appointment with her PCP. This nurse called Plavix 75mg PO daily #30 with x3 refills into [facility] per . IV removed and midline removed. Gauze and tape applied to site, tip intact on both. Entire discharge packet discussed with patient and her . New medication discussed with patient. Patient and her both stated that they do not have any further questions att. VSS. Patient's is her ride home. Patient leaving floor at 1317 via wheel chair with NT Cande Castellon wheeled patient to the front entrance where Cande stated the patient got in their private care.
== END 2020-01-03 13:17 | disposition home or self-care (01) | DRG 101 ==
LOC: EDUNIT# 01:38 → ER 01:39 → ICU 03:40
PROVIDERS: ADMIT Internal Medicine; ATTEND Internal Medicine
DX: G40.909 Epilepsy, unspecified, not intractable, without status epilepticus (principal); G93.40 Encephalopathy, unspecified; E87.2 Acidosis; R07.9 Chest pain, unspecified; I67.1 Cerebral aneurysm, nonruptured; G43.909 Migraine, unspecified, not intractable, without status migrainosus; I10 Essential (primary) hypertension; K21.9 Gastro-esophageal reflux disease without esophagitis; J44.9 Chronic obstructive pulmonary disease, unspecified; F60.89 Other specific personality disorders; R91.1 Solitary pulmonary nodule; I25.10 Atherosclerotic heart disease of native coronary artery without angina pectoris; F17.210 Nicotine dependence, cigarettes, uncomplicated; E87.6 Hypokalemia; G47.30 Sleep apnea, unspecified; R01.1 Cardiac murmur, unspecified; M81.0 Age-related osteoporosis without current pathological fracture; K59.09 Other constipation; M19.91 Primary osteoarthritis, unspecified site; M54.9 Dorsalgia, unspecified; F32.9 Major depressive disorder, single episode, unspecified; F43.10 Post-traumatic stress disorder, unspecified; F20.9 Schizophrenia, unspecified; Z79.02 Long term (current) use of antithrombotics/antiplatelets; Z85.42 Personal history of malignant neoplasm of other parts of uterus; Z85.43 Personal history of malignant neoplasm of ovary; Z85.3 Personal history of malignant neoplasm of breast; Z95.5 Presence of coronary angioplasty implant and graft; Z92.21 Personal history of antineoplastic chemotherapy; Z86.711 Personal history of pulmonary embolism
CPT/HCPCS: 36415; 51702; 70450; 71045; 72125; 76937; 80048; 80053; 80061; 80171; 80306; 80320; 81000; 82140; 82550; 82805; 82962; 83605; 83735; 83874; 84100; 84145; 84146; 84484; 85025; 85610; 85730; 87040; 87081; 87449; 87899; 93005; 93041; 93306; 94640; G0378

== ENCOUNTER 2020-01-04 12:28 | Outpatient (CLI) | payer MEDICAID ==
[~2020-01-04] VITALS: Ht 152 cm; Wt 64.5 kg
[~2020-01-04 12:28] MED LIST changes: +CLOP75TA28 PO; +NAPR-915; +PRAZ1CAP2
== END 2020-01-04 13:54 | disposition home or self-care (01) ==
LOC: PREOP 12:28
PROVIDERS: ATTEND Surgery
DX: Z01.818 Encounter for other preprocedural examination (principal)

== ENCOUNTER 2020-01-05 09:26 | Day surgery (SDC) | payer MEDICAID ==
[~2020-01-05] VITALS: Ht 152.4 cm; Wt 64.5 kg
[2020-01-05] VITALS (7 sets, daily range): BP systolic 94–120; BP diastolic 63–83
[2020-01-05] MEDS ORDERED: ceFAZolin 2 GM/50 ML NS 50 ML IV ONE (09:45)
--- NOTE | 2020-01-05 09:50 | NUR ---
this rn to room to administer versed as requested by pt for anxiety et ordered by anesthesia. pt states with slurred speech, "I feel like I'm going to have a seizure." pt proceeds to have approx 30 sec of tonic/clonic seizure activity. versed 1mg given as ordered. o2 applied at 2l/nc. sao2 96% when pulse oximeter applied. bp 109/53. anesthesia notified. pt not responsive for approximately 3 mins after tonic/clonic activity. when pt verbalizes again, she reports that she is ok. she c/o back pain, increased with recent persistent seizure activity. pt resting quietly. resps even et unlabored. warm blankets applied. denies further c/o or requests. will continue to monitor.
[2020-01-05] MEDS ORDERED: LACTATED RINGERS 1,000 ML IV PRN (10:28)
--- NOTE | 2020-01-05 10:34 | Progress Note-Pre Operative ---
Pre-Operative Progress Note H&P Reviewed The H&P was reviewed, patient examined and no changes noted. Time Seen by Provider: 10:32 Date H&P Reviewed: Jan 05, 2020 Time H&P Reviewed: 10:32 Pre-Operative Diagnosis: Venous Insufficiency, Remote hx of Carcinoma VENITA NOEL DO Jan 05, 2020 10:34
[2020-01-05] MEDS ORDERED: MIDAZOLAM 2 MG/2 ML (VERSED) VIAL ONE ×2 (10:42→11:26)
[2020-01-05] MEDS ORDERED: MIDAZOLAM 2 MG/2 ML (VERSED) VIAL IV ONE ×2 (10:46→11:00)
[2020-01-05] MEDS ORDERED: fentaNYL INJECTION 100 MCG/2 ML AMP ONE (11:18)
[2020-01-05] MEDS ORDERED: PROPOFOL INJECTION 50 ML IV ONE ×2 (11:24→12:13)
[2020-01-05] MEDS ORDERED: ONDANSETRON 4 MG/2 ML (SDV) Z0FRAN IVP PRN (11:45)
[2020-01-05] MEDS ORDERED: morphine INJ 10 MG/ML 1ML (SYR OR VIAL) IVP ONE (11:45)
[2020-01-05] MEDS ORDERED: MEPERIDINE (DEMEROL) INJ 50 MG/ML IVP ONE (11:45)
[2020-01-05] MEDS ORDERED: fentaNYL INJECTION 100 MCG/2 ML AMP IVP ONE (11:45)
--- NOTE | 2020-01-05 13:12 | Progress Note-Post Operative ---
Post-Operative Progess Note Surgeon (s)/Product Promoter Sales Person (s) Surgeon VENITA NOEL DO Product Promoter Sales Person: SANDRA CarrollII Pre-Operative Diagnosis Venous Insufficiency, Remote hx of Carcinoma Post-Operative Diagnosis same Procedure & Operative Findings Date of Procedure 01/05/20 Procedure Performed/Findings Luis Cath removal Luis cath placement Anesthesia Type IV sedation by HULL DRAFTER Estimated Blood Loss Estimated blood loss (mL): scant Specimens/Packing Specimens Removed port VENITA NOEL DO Jan 05, 2020 13:12
--- NOTE | 2020-01-05 13:15 | Discharge Inst-Surgical ---
Discharge Inst-Surgical Depart Medication/Instructions New, Converted or Re-Newed RX: Other (take ibuprofen or tylenol for pain) Activity Activity as Tolerated: Yes Activity Instructions: Avoid Stress to Incision Driving Instructions: You May Drive Diet Discharge Diet: No Restrictions Diet After 24 Hours: Clear Liquid if Nauseous If Any Problems/Questions/Issu: Contact Your Physician, Go to Emergency Room Skin/Wound Care Infection Signs and Symptoms: Increased Redness, Foul Odor of Wound, Increased Drainage, Skin Itchy or Has a Rash, Increased Swelling, Temperature Above 101 F Bathing Instructions: Shower Stitches/[place]ze/Dermabond Dis: Dermabond Ice Pack: Ice On and Off Site (as needed for pain) VENITA NOEL DO Jan 05, 2020 13:15
--- NOTE | 2020-01-05 13:24 | Anesthesia-General Post-Op ---
MAC Patient Condition Mental Status/LOC: Same as Preop Cardiovascular: Satisfactory Nausea/Vomiting: Absent Respiratory: Satisfactory Pain: Controlled Complications: Absent Post Op Complications Complications None Follow Up Care/Instructions Patient Instructions None needed. Anesthesiology Discharge Order Discharge Order Patient is doing well, no complaints, stable vital signs, no apparent adverse anesthesia problems. No complications reported per nursing. DIEGO GARCIA CRNA Jan 05, 2020 13:24
--- NOTE | 2020-01-05 15:27 | Diagnostic Imaging Report ---
EXAMINATION: Fluoroscopy at 12:15 PM. INDICATION: Port insertion. TECHNIQUE: Fluoroscopic assistance was provided for Dr. Matthew during his right-sided port insertion procedure. 2.9 seconds of fluoroscopy time were utilized. FINDINGS: A single spot film of the thorax was received. There is a Port-A-Cath in place on the right with the tip of the catheter overlying the midportion of the superior vena cava. IMPRESSION: Fluoroscopic assistance was provided for Dr. Matthew. Dictated by: Dictated on workstation # [id number]
--- NOTE | 2020-01-05 18:44 | Operative Report ---
Operative Report Date of Procedure/Surgery Jan 05, 2020 Surgeon (s) VENITA NOEL DO Acid Loader (s): RONNY Carroll Post-Operative Diagnosis Venous Insufficiency Procedure Performed Luis-Cath removal Port-Cath placement Description of Procedure Anesthesia Type: MAC Estimated blood loss (mL): scant Specimen(s) collected/removed none Description of the Procedure PROCEDURE: Removal of port, left chest wall COMPLICATIONS: None. INDICATIONS: The patient is a 59 year-old female who had a port previously placed. Patient is ok to have port removed. The patient was explained risk and benefits of the procedure and wished to proceed with procedure. Consent was signed on the chart. PROCEDURE: The patient was taken to the operating suite and was prepped and draped in sterile fashion. A surgical pause was performed. Local anesthetic was infiltrated to the area around the port. A number 15 blade scalpel was used to make an incision. Cautery was used to dissect down to the port which was then grasped and then dissected around. The catheter was removed in its entirety. The port was then able to be dissected out of the pocket and elevated. The wound was then irrigated with copious amounts of irrigation. Hemostasis had been achieved. The subcutaneous tissues were then reapproximated using 3-0 Vicryl. Skin was then closed using 4-0 monocryl, 3 subcuticular stitches. The area was then washed and dried and Skin Affix placed over the incision. Attention was then turned to placing port in the right anterior chest wall; right subclavian vein. PROCEDURE: [Right] Subclavian port placement. COMPLICATIONS: None. INDICATIONS: The patient is a 59 year old female [with venous insufficiency, non-functioning port and remote hx of carcinoma]. Patient understands the risks and benefits of port placement and wished to proceed with the procedure. Consent was signed on the chart. PROCEDURE: The patient was taken to the operating suite, was prepped and draped in the sterile fashion. A surgical pause was performed. Started by placeing pt in Trendelenberg position and subclavian vein was accessed; using micro-accesskit, the right internal vein was accessed. Dark nonpulsatile blood was withdrawn. The wire was inserted. Fluoroscopy assured proper placement. The needle was removed. The micro-access dilator was advanced over the wire and the wire was removed. The regular wire was inserted and fluoroscopy assured proper placement. The wire was then secured. Local anesthetic was used to anesthetize from the guidewire for tunneling down to the right chest and for pocket creation. A [#11] blade scalpel was used to make an incision over the [right anterior] chest and a stab incision at the guidewire was made. Cautery was used todissect down to the pectoral fascia. A pocket was created with blunt dissection. The dilator sheath was then advanced over the wire under fluoroscopy and the dilator and wire were removed. The Gro[place]ong catheter was inserted through the sheath and the sheath was then removed. The [place]ong wire was removed. The catheter was then tunneled to the right chest pocket. Fluoroscopy was used to cut to length and this was then attached to the port which was then placed within the pocket. The port was then accessed without difficulty. It was then flushed with saline and then heparin. The subcutaneous tissues were then reapproximated using 3-0 Vicryl. The areas were then washed and dried. Skin Affix was placed over incision. The insertion point of the guidewire was also closed with Skin Affix. The patient tolerated the procedure well without complication and was taken to recovery room in stable condition. Chest x-ray is pending. Findings of the Procedure Port removed left chest wall and new Port placed right chest wall. Allergies and Home Medications Allergies Coded Allergies: acetaminophen (Verified Allergy, Unknown, Hives, 12/15/19) aspirin (Verified Allergy, Unknown, HIVES, 04/08/19) ibuprofen (Verified Allergy, Unknown, Hives, 12/15/19) Uncoded Allergies: TORDOL (Allergy, Unknown, 04/08/19) Home Medications Albuterol Sulfate 1 Puff Puff, 2 PUFF INH Q4H PRN for SHORTNESS OF BREATH, (Reported) Amlodipine Besylate 10 Mg Tablet, 10 MG PO DAILY, (Reported) Cetirizine HCl 10 Mg Tablet, 10 MG PO DAILY, (Reported) Clopidogrel Bisulfate 75 Mg Tablet, 75 MG PO DAILY Prescribed by: TRENT RAMÍREZ on 01/03/20 0949 Cyclobenzaprine HCl 10 Mg Tablet, 10 MG PO Q8H Prescribed by: SANDRA PATEL on 03/03/19 0004 Desvenlafaxine Succinate 100 Mg Tab.er.24h, 100 MG PO HS, (Reported) Dexlansoprazole 60 Mg Cap.dr.bp, 60 MG PO DAILY, (Reported) Escitalopram Oxalate 10 Mg Tablet, 10 MG PO DAILY, (Reported) Gabapentin 300 Mg Capsule, 300 MG PO TID, (Reported) Levetiracetam 500 Mg Tablet, 500 MG PO BID, (Reported) Pantoprazole Sodium 40 Mg Tablet.dr, 40 MG PO DAILY, (Reported) Potassium Chloride 10 Meq Tablet.er, 10 MEQ PO BID, (Reported) Quetiapine Fumarate 100 Mg Tablet, 100 MG PO BID, (Reported) Ropinirole HCl 1 Mg Tablet, 1 MG PO BID PRN for RESTLESS LEGS, (Reported) Ropinirole HCl 3 Mg Tablet, 3 MG PO HS, (Reported) Zolpidem Tartrate 10 Mg Tablet, 10 MG PO HS, (Reported) Patient Home Medication List Home Medication List Reviewed: VENITA Erickson DO Jan 05, 2020 18:44
== END 2020-01-05 13:45 | disposition home or self-care (01) ==
LOC: SDC 09:26
PROVIDERS: ATTEND Surgery
DX: I87.2 Venous insufficiency (chronic) (peripheral) (principal); I10 Essential (primary) hypertension; I25.119 Atherosclerotic heart disease of native coronary artery with unspecified angina pectoris; G47.33 Obstructive sleep apnea (adult) (pediatric); J44.9 Chronic obstructive pulmonary disease, unspecified; K21.9 Gastro-esophageal reflux disease without esophagitis; F43.10 Post-traumatic stress disorder, unspecified; F17.210 Nicotine dependence, cigarettes, uncomplicated; F20.9 Schizophrenia, unspecified; F41.9 Anxiety disorder, unspecified; F32.9 Major depressive disorder, single episode, unspecified; Z85.43 Personal history of malignant neoplasm of ovary; Z92.21 Personal history of antineoplastic chemotherapy; Z88.6 Allergy status to analgesic agent; Z79.02 Long term (current) use of antithrombotics/antiplatelets; Z79.899 Other long term (current) drug therapy; Z88.8 Allergy status to other drugs, medicaments and biological substances; Z86.73 Personal history of transient ischemic attack (TIA), and cerebral infarction without residual deficits; Z90.710 Acquired absence of both cervix and uterus; Z80.3 Family history of malignant neoplasm of breast; Z82.3 Family history of stroke; Z83.3 Family history of diabetes mellitus
CPT/HCPCS: 87081

== ENCOUNTER 2020-02-06 20:53 | Observation (INO) | payer MEDICAID ==
[~2020-02-06] VITALS: Ht 150 cm; Wt 64.1 kg
[~2020-02-06 20:53] MED LIST changes: -NAPR-915; +NAPR-915 PO; -PRAZ1CAP2; +PRAZ1CAP2 PO
--- NOTE | 2020-02-06 21:06 | ED Fall/Injury ---
General Stated Complaint: FALL,LEFT SIDE RIB/BREAST PAIN Source: patient Exam Limitations: no limitations History of Present Illness Date Seen by Provider: Feb 06, 2020 Time Seen by Provider: 21:04 Initial Comments tripped and fell at home, landed on left side and now has left chest wall pain. Apparently "lives off the land", no electricity no running water. Follows with Dr. Ge. Usually takes ultram for pain at home according to [facility] Occurred: this evening Severity: moderate Loss of Consciousness: no loss of consciousness Associated Symptoms (Fall): Denies Symptoms Allergies and Home Medications Allergies Coded Allergies: acetaminophen (Verified Allergy, Unknown, Hives, 12/15/19) aspirin (Verified Allergy, Unknown, HIVES, 04/08/19) ibuprofen (Verified Allergy, Unknown, Hives, 12/15/19) Uncoded Allergies: TORDOL (Allergy, Unknown, 04/08/19) Home Medications Albuterol Sulfate 1 Puff Puff, 2 PUFF INH Q4H PRN for SHORTNESS OF BREATH, (Reported) Amlodipine Besylate 10 Mg Tablet, 10 MG PO DAILY, (Reported) Cetirizine HCl 10 Mg Tablet, 10 MG PO DAILY, (Reported) Clopidogrel Bisulfate 75 Mg Tablet, 75 MG PO DAILY Prescribed by: TRENT RAMÍREZ on 01/03/20 0949 Cyclobenzaprine HCl 10 Mg Tablet, 10 MG PO Q8H Prescribed by: SANDRA PATEL on 03/03/19 0004 Desvenlafaxine Succinate 100 Mg Tab.er.24h, 100 MG PO HS, (Reported) Dexlansoprazole 60 Mg Cap.dr.bp, 60 MG PO DAILY, (Reported) Escitalopram Oxalate 10 Mg Tablet, 10 MG PO DAILY, (Reported) Gabapentin 300 Mg Capsule, 300 MG PO TID, (Reported) Levetiracetam 500 Mg Tablet, 500 MG PO BID, (Reported) Pantoprazole Sodium 40 Mg Tablet.dr, 40 MG PO DAILY, (Reported) Potassium Chloride 10 Meq Tablet.er, 10 MEQ PO BID, (Reported) Quetiapine Fumarate 100 Mg Tablet, 100 MG PO BID, (Reported) Ropinirole HCl 1 Mg Tablet, 1 MG PO BID PRN for RESTLESS LEGS, (Reported) Ropinirole HCl 3 Mg Tablet, 3 MG PO HS, (Reported) Zolpidem Tartrate 10 Mg Tablet, 10 MG PO HS, (Reported) Patient Home Medication List Home Medication List Reviewed: Yes Review of Systems Review of Systems Constitutional: see HPI Eyes: No Symptoms Reported Ears, Nose, Mouth, Throat: no symptoms reported Respiratory: no symptoms reported Cardiovascular: no symptoms reported Genitourinary: no symptoms reported Musculoskeletal: see HPI Skin: no symptoms reported (what) Psychiatric/Neurological: No Symptoms Reported Past Xncjtap-Hlroui-Wzadjo Hx Patient Social History Drug of Choice: cannabis Type Used: Cigarettes 2nd Hand Smoke Exposure: Yes Recent Foreign Travel: No Contact w/Someone Who Travel: No Recent Hopitalizations: Yes Immunizations Up To Date Tetanus Booster (TDap): Unknown PED Vaccines UTD: Yes Date of Pneumonia Vaccine: Jul 27, 2006 Seasonal Allergies Seasonal Allergies: No Past Medical History Surgeries: Yes (port) Cardiac, Coronary Stent, Gallbladder, Hysterectomy Respiratory: Yes Pulmonary Embolism, Sleep Apnea, COPD Currently Using CPAP: No Currently Using BIPAP: No Cardiac: Yes (CARDIAC STENTS ) Coronary Artery Disease, Heart Murmur, Hypertension 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, 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) Headaches /Migraines, Seizure Disorder 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 Disorders: Yes (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, 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 Genitourinary: No Gastrointestinal: Yes Gastroesophageal Reflux, Chronic Constipation Musculoskeletal: Yes Osteoporosis, Arthritis, Chronic Back Pain Endocrine: No HEENT: Yes Cataract Cancer: Yes Breast, Ovarian, Uterine Did You Recieve Any Treatments: Yes What Type of Treatment Did You: Chemotherapy, Surgical Intervention Psychosocial: Yes Sleep Difficulties, PTSD, Schizophrenia, Depression Integumentary: No Blood Disorders: Yes (hx of anemia) Adverse Reaction/Blood Tranf: No Family Medical History Cardiovascular disease 19 FATHER 19 MOTHER Cataracts Completed stroke 19 FATHER 19 MOTHER G8 BROTHER (X3) Diabetes mellitus 19 FATHER 19 MOTHER G8 BROTHER BROTHER FH: breast cancer 19 MOTHER Hypertension 19 FATHER 19 MOTHER Myocardial infarction G8 BROTHER No Pertinent Family Hx Physical Exam Vital Signs Vital Signs - First Documented 02/06/20 02/06/20 20:58 21:27 Temp 36.8 Pulse 94 Resp 20 B/P (MAP) 122/84 (97) Pulse Ox 94 O2 Delivery Room Air O2 Flow Rate 15.00 Capillary Refill : Height, Weight, BMI Height: 5'5.00" Weight: 160lbs. 0.0oz. 72.873103ic; 27.77 BMI Method:Estimated General Appearance: WD/WN, no apparent distress HEENT: PERRL/EOMI, normal ENT inspection Neck: non-tender, full range of motion Cardiovascular: other (left chest wall is tender to palp, no crepitus, no erythema, no ecchymosis, no abrasion. ) Respiratory: no respiratory distress, no accessory muscle use Gastrointestinal: normal bowel sounds, soft Extremities: normal range of motion, non-tender Neurologic/Psychiatric: normal mood/affect, oriented x 3 Kenneth Coma Score Best Eye Response: (4) Open Spontaneously Best Verbal Response: (5) Oriented Best Motor Response: (6) Obeys Commands Kenneth Total: 15 Progress/Results/Core Measures Results/Orders Lab Results Laboratory Tests Test 02/06/20 21:39 02/06/20 21:42 Range/Units White Blood Count 11.8 H 4.3-11.0 10^3/uL Red Blood Count 3.81 L 4.35-5.85 10^6/uL Hemoglobin 11.9 11.5-16.0 G/DL Hematocrit 36 35-52 % Mean Corpuscular Volume 94 80-99 FL Mean Corpuscular Hemoglobin 31 25-34 PG Mean Corpuscular Hemoglobin Concent 33 32-36 G/DL Red Cell Distribution Width 15.7 H 10.0-14.5 % Platelet Count 414 H 130-400 10^3/uL Mean Platelet Volume 8.5 7.4-10.4 FL Neutrophils (%) (Auto) 65 42-75 % Lymphocytes (%) (Auto) 27 12-44 % Monocytes (%) (Auto) 6 0-12 % Eosinophils (%) (Auto) 2 0-10 % Basophils (%) (Auto) 0 0-10 % Neutrophils # (Auto) 7.7 1.8-7.8 X 10^3 Lymphocytes # (Auto) 3.1 1.0-4.0 X 10^3 Monocytes # (Auto) 0.7 0.0-1.0 X 10^3 Eosinophils # (Auto) 0.2 0.0-0.3 10^3/uL Basophils # (Auto) 0.0 0.0-0.1 10^3/uL Sodium Level 141 135-145 MMOL/L Potassium Level 3.8 3.6-5.0 MMOL/L Chloride Level 109 H 98-107 MMOL/L Carbon Dioxide Level 16 L 21-32 MMOL/L Anion Gap 16 H 5-14 MMOL/L Blood Urea Nitrogen 11 7-18 MG/DL Creatinine 0.91 0.60-1.30 MG/DL Estimat Glomerular Filtration Rate > 60 BUN/Creatinine Ratio 12 Glucose Level 100 70-105 MG/DL Calcium Level 8.7 8.5-10.1 MG/DL Corrected Calcium 8.8 8.5-10.1 MG/DL Magnesium Level 1.9 1.6-2.4 MG/DL Total Bilirubin 0.2 0.1-1.0 MG/DL Aspartate Amino Transf (AST/SGOT) 9 5-34 U/L Alanine Aminotransferase (ALT/SGPT) < 6 0-55 U/L Alkaline Phosphatase 137 H 40-136 U/L Total Protein 7.0 6.4-8.2 GM/DL Albumin 3.9 3.2-4.5 GM/DL Serum Alcohol < 10 <10 MG/DL Urine Color YELLOW Urine Clarity CLEAR Urine pH 6.0 5-9 Urine Specific [place] 1.020 1.016-1.022 Urine Protein NEGATIVE NEGATIVE Urine Glucose (UA) NEGATIVE NEGATIVE Urine Ketones NEGATIVE NEGATIVE Urine Nitrite NEGATIVE NEGATIVE Urine Bilirubin NEGATIVE NEGATIVE Urine Urobilinogen 0.2 < = 1.0 MG/DL Urine Leukocyte Esterase NEGATIVE NEGATIVE Urine RBC (Auto) NEGATIVE NEGATIVE Urine RBC NONE /HPF Urine WBC 0-2 /HPF Urine Squamous Epithelial Cells 2-5 /HPF Urine Crystals NONE /LPF Urine Bacteria MODERATE H /HPF Urine Casts PRESENT /LPF Urine Hyaline Casts 0-2 H /LPF Urine Mucus SMALL H /LPF Urine Culture Indicated YES Urine Opiates Screen NEGATIVE NEGATIVE Urine Oxycodone Screen NEGATIVE NEGATIVE Urine Methadone Screen NEGATIVE NEGATIVE Urine Propoxyphene Screen NEGATIVE NEGATIVE Urine Barbiturates Screen NEGATIVE NEGATIVE Ur Tricyclic Antidepressants Screen NEGATIVE NEGATIVE Urine Phencyclidine Screen NEGATIVE NEGATIVE Urine Amphetamines Screen NEGATIVE NEGATIVE Urine Methamphetamines Screen NEGATIVE NEGATIVE Urine Benzodiazepines Screen POSITIVE H NEGATIVE Urine Cocaine Screen NEGATIVE NEGATIVE Urine Cannabinoids Screen POSITIVE H NEGATIVE My Orders Orders - NOBLE TOMAS APRN Ct Chest Wo (02/06/20 21:02) Tramadol Tablet (Ultram Tablet) (02/06/20 21:15) Rx-Tramadol Hcl (Rx-Ultram) (02/06/20 21:22) Lorazepam Injection (Ativan Injection) (02/06/20 21:24) Lorazepam Injection (Ativan Injection) (02/06/20 22:00) Levetiracetam Injection (Keppra Injectio (02/06/20 22:00) Ns (Ivpb) (Sodium Chloride 0.9% Ivpb Bag (02/06/20 21:46) Levetiracetam Injection (Keppra Injectio (02/06/20 21:47) Levetiracetam Injection (Keppra Injectio (02/06/20 21:49) Fentanyl Injection (Sublimaze Injection (02/06/20 22:15) Diazepam Injection (Valium Injection) (02/06/20 22:06) Ct Head Wo (02/06/20 22:17) Lorazepam Injection (Ativan Injection) (02/06/20 22:30) Diazepam Injection (Valium Injection) (02/06/20 22:30) Medications Given in ED Current Medications Medications Dose Ordered Sig/Matt Route Start Time Stop Time Status Last Admin Dose Admin Fentanyl Citrate 50 mcg ONCE ONCE IVP 02/06/20 22:15 02/06/20 22:16 DC 02/06/20 22:24 50 MCG Lorazepam 1 mg ONCE ONCE IVP 02/06/20 22:00 02/06/20 22:01 DC 02/06/20 21:57 1 MG Lorazepam 2 mg ONCE ONCE IM 02/06/20 21:45 02/06/20 21:46 DC 02/06/20 21:58 2 MG Sodium Chloride 1,000 ml @ 0 mls/hr Q0M ONCE IV 02/06/20 21:35 02/06/20 21:38 DC 02/06/20 21:57 999 MLS/HR Tramadol HCl 50 mg ONCE ONCE PO 02/06/20 21:15 02/06/20 21:16 DC 02/06/20 21:25 50 MG Vital Signs/I&O 02/06/20 02/06/20 20:58 21:27 Temp 36.8 Pulse 94 Resp 20 B/P (MAP) 122/84 (97) Pulse Ox 94 100 O2 Delivery Room Air OxyMask O2 Flow Rate 15.00 Diagnostic Imaging Diagonstic Imaging: CT Comments NAME: HELDER RHODES [facility] REC#: [id number] PT STATUS: REG ER : 1960 PHYSICIAN: NOBLE TOMAS APRN ADMIT DATE: 02/06/20/ER Draft Date of Exam:02/06/20 CT CHEST WO CLINICAL INDICATION: Patient is status post fall yesterday. Patient with pain in anterior left ribs at approximately T7. EXAM: CT scan of the chest performed without contrast. Sagittal and coronal reformatted images were created. Auto Exposure Controls were utilized during the CT exam to meet ALARA standards for radiation dose reduction. COMPARISON: CT scan of the chest, abdomen and pelvis dated 12/15/2017. FINDINGS: There is minimal bibasilar atelectasis. There is improved aeration of both lungs compared to the prior study. Stable pneumatocele seen in the middle lobe. There is no lung infiltrate. There is no mediastinal, hilar or axillary lymphadenopathy. There is calcification seen within the left innominate vein where a catheter/central line previously was. Interval placement of Eqyuze-a-Igry overlying the right chest with tip in the proximal superior vena cava. The previously seen left Nryhgl-l-Hcmh has been removed. The visualized upper abdominal structures show no significant interval mildly. Left renal cyst is again seen. Fatty infiltration of the pancreas is again noted. There are hypertrophic spurs seen throughout the thoracic spine. There is interval development of a very subtle fracture involving the anterior aspect of the T6 rib seen on series 6, image 104. There is no other fracture seen. IMPRESSION: 1: There is interval development of an acute fracture involving the anterior aspect of the left T6 rib. There is no other fracture seen. 2: Lungs are clear. There is no lymphadenopathy. Dictated on workstation # [id number] Dict: 02/06/202120 Trans: 02/06/202132 [facility] [id number] Interpreted by: KANCHAN CAMPBELL MD Electronically signed by: Departure Communication (Admissions) Time/Spoke to Admitting Phy: 21:58 On the coronal films I do believe I see a nondisplaced anterior left sixth rib fracture. 2136- Had 2 seizures here, was given 1 mg of lorazepam intramuscularly, IV access was established, she was given a second milligram of lorazepam through her port. Labs were drawn. Never became hypoxic. Seizure duration was less than 1 minute. I will discontinue the tramadol prescription, that with seizures. Will use oxycodone for pain control. 2158-after the 2 mg of lorazepam had a third seizure, additional 1 mg lorazepam ordered and 1 g of Keppra IV going now. She does have an extensive psych history, however I do not believe these to be pseudoseizures because she was flopping all over the bed with these seizures which would be quite painful given the rib fracture. I spoke with the and updated him on the plan to admit, he states that she can have seizures anywhere from once every few weeks to once a day, states that she gets them "when she gets stressed". He believes her only seizure medicine is gabapentin. These were full body myoclonic followed by a postictal state afterwards. Did not bite her tongue, but she has no teeth. No incontinence. 2217-patient is conversing with me telling me about how she lives off the land, making sense. States that she takes gabapentin for her seizures, also takes diazepam for her seizures. States that she ran out of the diazepam about 2-3 weeks ago. We gave 5 mg IV diazepam here. Impression Primary Impression: Fracture of rib Additional Impression: Seizure disorder Disposition: ADMITTED INPATIENT Condition: Stable Admissions Decision to Admit Reason: Admit from ER (General) Decision to Admit/Date: Feb 06, 2020 Time/Decision to Admit Time: 21:58 Departure-Patient Inst. Referrals: CESILIA GE DO (PCP/Family) Primary Care Physician Add. Discharge Instructions: 1. medication as directed. 2. Return tO Er for any concerns 3. Follow up with your doctor next week NOBLE TOMAS APRN Feb 06, 2020 21:05
[2020-02-06] MEDS ORDERED: RX-TRAMADOL 50 MG (ULTRAM) TAB PPK#4 PO STA (21:22)
[2020-02-06] MEDS ORDERED: LORazepam INJ 2 MG/ML (ATIVAN) VIAL ONE (21:24)
[2020-02-06] MEDS ORDERED: TRAM-42 PO (21:25)
--- NOTE | 2020-02-06 21:33 | Diagnostic Imaging Report ---
CLINICAL INDICATION: Patient is status post fall yesterday. Patient with pain in anterior left ribs at approximately T7. EXAM: CT scan of the chest performed without contrast. Sagittal and coronal reformatted images were created. Auto Exposure Controls were utilized during the CT exam to meet ALARA standards for radiation dose reduction. COMPARISON: CT scan of the chest, abdomen and pelvis dated 12/15/2017. FINDINGS: There is minimal bibasilar atelectasis. There is improved aeration of both lungs compared to the prior study. Stable pneumatocele seen in the middle lobe. There is no lung infiltrate. There is no mediastinal, hilar or axillary lymphadenopathy. There is calcification seen within the left innominate vein where a catheter/central line previously was. Interval placement of Ecxsbo-b-Ozat overlying the right chest with tip in the proximal superior vena cava. The previously seen left Vvapue-e-Uzno has been removed. The visualized upper abdominal structures show no significant interval mildly. Left renal cyst is again seen. Fatty infiltration of the pancreas is again noted. There are hypertrophic spurs seen throughout the thoracic spine. There is interval development of a very subtle fracture involving the anterior aspect of the T6 rib seen on series 6, image 104. There is no other fracture seen. IMPRESSION: 1: There is interval development of an acute fracture involving the anterior aspect of the left T6 rib. There is no other fracture seen. 2: Lungs are clear. There is no lymphadenopathy. Dictated by: Dictated on workstation # [id number]
[2020-02-06] MEDS ORDERED: NS IV 1000 ML 1,000 ML IV ONE (21:35)
[2020-02-06] MEDS ORDERED: LORazepam INJ 2 MG/ML (ATIVAN) VIAL IM ONE (21:45)
[2020-02-06 21:46] LABS: BASOPHILS % (AUTO) 0 % (0-10); EOSINOPHILS # (AUTO) 0.2 10^3/uL (0.0-0.3); EOSINOPHILS % (AUTO) 2 % (0-10); HEMATOCRIT 36 % (35-52); HEMOGLOBIN 11.9 G/DL (11.5-16.0); LYMPHOCYTES # (AUTO) 3.1 X 10^3 (1.0-4.0); LYMPHOCYTES % (AUTO) 27 % (12-44); MEAN CORPUSCULAR HEMOGLOBIN 31 PG (25-34); MEAN CORPUSCULAR HGB CONC 33 G/DL (32-36); MEAN CORPUSCULAR VOLUME 94 FL (80-99); MEAN PLATELET VOLUME 8.5 FL (7.4-10.4); MONOCYTES # (AUTO) 0.7 X 10^3 (0.0-1.0); MONOCYTES % (AUTO) 6 % (0-12); NEUTROPHILS # (AUTO) 7.7 X 10^3 (1.8-7.8); NEUTROPHILS % (AUTO) 65 % (42-75); PLATELET COUNT 414 10^3/uL (130-400); RED CELL DISTRIBUTION WIDTH 15.7 % (10.0-14.5); WHITE BLOOD COUNT 11.8 10^3/uL (4.3-11.0)
[2020-02-06] MEDS ORDERED: NS (IVPB) 100 ML ONE (21:46)
[2020-02-06] MEDS ORDERED: LEVETIRACETAM 500 MG/5 ML (KEPPRA) VIAL IV ONE ×2 (21:47→21:49)
[2020-02-06 21:49] LABS: BILIRUBIN,URINE NEGATIVE (NEGATIVE); CLARITY,URINE CLEAR; COLOR,URINE YELLOW; GLUCOSE, URINE (UA) NEGATIVE (NEGATIVE); KETONES,URINE NEGATIVE (NEGATIVE); LEUKOCYTE ESTERASE ,URINE NEGATIVE (NEGATIVE); NITRITE,URINE NEGATIVE (NEGATIVE); PROTEIN,URINE NEGATIVE (NEGATIVE)
[2020-02-06 21:56] LABS: ALBUMIN 3.9 GM/DL (3.2-4.5); CHLORIDE 109 MMOL/L (98-107); POTASSIUM 3.8 MMOL/L (3.6-5.0); SODIUM 141 MMOL/L (135-145)
[2020-02-06 21:56] LABS: BACTERIA,URINE MODERATE /HPF; HYALINE CASTS, URINE 0-2 /LPF; WBC,URINE 0-2 /HPF
[2020-02-06 21:58] LABS: CALCIUM 8.7 MG/DL (8.5-10.1)
[2020-02-06 21:59] LABS: GLUCOSE 100 MG/DL (70-105)
[2020-02-06 22:00] LABS: BILIRUBIN,TOTAL 0.2 MG/DL (0.1-1.0); CARBON DIOXIDE 16 MMOL/L (21-32)
[2020-02-06 22:00] LABS: AMPHETAMINE SCREEN, URINE NEGATIVE (NEGATIVE); BARBITURATE SCREEN URINE NEGATIVE (NEGATIVE); BENZODIAZEPINES SCREEN URINE POSITIVE (NEGATIVE); CANNABINOID SCREEN, URINE POSITIVE (NEGATIVE); COCAINE SCREEN URINE NEGATIVE (NEGATIVE); METHADONE STAT NEGATIVE (NEGATIVE); METHAMPHETAMINE SCREEN URINE S NEGATIVE (NEGATIVE); OPIATE SCREEN URINE NEGATIVE (NEGATIVE); OXYCODONE STAT NEGATIVE (NEGATIVE); PROPOXYPHENE STAT NEGATIVE (NEGATIVE); TRICYCLIC ANTIDEPRESSANTS SCRE NEGATIVE (NEGATIVE)
[2020-02-06] MEDS ORDERED: LEVETIRACETAM INJECTION 1,000 MG in NS (IVPB) 100 ML IV SCH (22:00)
[2020-02-06] MEDS ORDERED: LORazepam INJ 2 MG/ML (ATIVAN) VIAL IVP ONE ×2 (22:00→22:30)
[2020-02-06 22:02] LABS: ALKALINE PHOSPHATASE 137 U/L (40-136)
[2020-02-06 22:03] LABS: CREATININE SERUM 0.91 MG/DL (0.60-1.30); GFR ESTIMATED > 60
[2020-02-06 22:04] LABS: BUN/CREATININE RATIO 12
[2020-02-06 22:05] LABS: ALANINE AMINOTRANSFERASE < 6 U/L (0-55); MAGNESIUM 1.9 MG/DL (1.6-2.4)
[2020-02-06] MEDS ORDERED: DIAZEPAM INJ 10 MG/2 ML (VALIUM) SYR ONE (22:06)
--- NOTE | 2020-02-06 22:06 | NUR ---
Seizure progress note - 2126 - Pt started seizing - laid back in bed et ABIOLA Rocha in room with Mirian Juarez NP et Dr. Graham 2127 - Seizure ceased. 2nd seizure began 2128 - 2nd seizure ceased 2129- 1mg ativan IM to rt GM 2132 - VS BP 123/66, HR 85, O2 100% on 15L oxymask 2133 - Rt chest PAC accessed by Mirian Juarez NP 2135 - 3rd seizure started, 1mg ativan IV push given 2136 - seizure ceased 2138 - blood drawn from PAC 2141 - UA obtained from straight cath 2148 - seizure #4 started 2148 - seizure ceased 2150 - 1mg ativan IV push 2206 - seizure #5 started 2207 - seizure ceased 2208 - 1mg ativan given IV push 3 - 5mg valium IV push given 2224 - pt taken to CT via cart 2237 - pt returned from CT 2244 - report called to ABIOLA Whyte in ICU
[2020-02-06] MEDS ORDERED: fentaNYL INJECTION 100 MCG/2 ML AMP IVP ONE (22:15)
[2020-02-06] MEDS ORDERED: DIAZEPAM INJ 10 MG/2 ML (VALIUM) SYR IVP ONE (22:30)
--- NOTE | 2020-02-06 23:12 | NUR ---
Disconnecting pt from monitor to go to ICU et pt has 6th seizure. Dr. Graham at bedside 2313 - 5mg valium IV push given. Seizure ceased. 2316 - 18Fr salazar cath inserted under sterile technique by ABIOLA Zee - draining cloudy urine to DD. Addendum: 02/06/20 at 2343 by BETY STOKES RN 2316 VS - BP 114/65. HR 80. O2 100% on 15L oxymask
[2020-02-06 23:30] VITALS: BP 78/39
[2020-02-06 23:45] VITALS: BP 94/50
[2020-02-06] MEDS ORDERED: LORazepam INJ 2 MG/ML (ATIVAN) VIAL IV PRN (23:45)
--- NOTE | 2020-02-06 23:50 | NUR ---
PATIENT TRANSFERRED FROM ER TO ICU ROOM 10 AT APPROXIMATELY 2330. PT SLIGHTLY DROWSY BUT ABLE TO COMMUNICATE WITH THIS RN. PT STATES HER NAME AND REQUESTING A "WOOD BURNING STOVE" BECAUSE SHE IS COLD. WARM BLANKETS PROVIDED. AT 2350 PT HAS HER 7TH SEIZURE, LASTING APPROXIMATELY 1 MINUTE AND 40 SECONDS. O2 INCREASED TO 15 L VIA OXYMASK. NO INJURIES NOTED AND NOW IN POSTICTAL STAGE. HR 72, RR, 24, O2 100%, B/P 86/52. PUPILS ARE EQUAL AND REACTIVE TO LIGHT. SEIZURE PRECAUTIONS IN PLACE INCLUDING PADDED RAILS, SUCTION AT BEDSIDE AND BED IN LOWEST POSITION. BED EXIT ALARM IS ON. WILL CONTINUE TO MONITOR.
[2020-02-07] VITALS (16 sets, daily range): BP systolic 81–104; BP diastolic 40–67
[2020-02-07] MEDS ORDERED: NS IV 1000 ML 1,000 ML IV SCH (00:45)
[2020-02-07] MEDS ORDERED: NS IV 500 ML 500 ML ONE (00:45)
[2020-02-07] MEDS: fentaNYL INJECTION 100 MCG/2 ML AMP IV PRN ×3 (01:04→08:31)
[2020-02-07 03:52] LABS: BASOPHILS % (AUTO) 0 % (0-10); EOSINOPHILS # (AUTO) 0.3 10^3/uL (0.0-0.3); EOSINOPHILS % (AUTO) 4 % (0-10); HEMATOCRIT 31 % (35-52); HEMOGLOBIN 10.2 G/DL (11.5-16.0); LYMPHOCYTES # (AUTO) 2.9 X 10^3 (1.0-4.0); LYMPHOCYTES % (AUTO) 34 % (12-44); MEAN CORPUSCULAR HGB CONC 33 G/DL (32-36); MEAN CORPUSCULAR VOLUME 95 FL (80-99); MEAN PLATELET VOLUME 8.5 FL (7.4-10.4); MONOCYTES # (AUTO) 0.7 X 10^3 (0.0-1.0); MONOCYTES % (AUTO) 8 % (0-12); NEUTROPHILS # (AUTO) 4.6 X 10^3 (1.8-7.8); NEUTROPHILS % (AUTO) 54 % (42-75); PLATELET COUNT 328 10^3/uL (130-400); RED CELL DISTRIBUTION WIDTH 15.6 % (10.0-14.5); WHITE BLOOD COUNT 8.5 10^3/uL (4.3-11.0)
[2020-02-07 03:56] LABS: MEAN CORPUSCULAR HEMOGLOBIN 31 PG (25-34)
[2020-02-07 04:01] LABS: CHLORIDE 113 MMOL/L (98-107); POTASSIUM 3.7 MMOL/L (3.6-5.0); SODIUM 141 MMOL/L (135-145)
[2020-02-07 04:02] LABS: CALCIUM 7.7 MG/DL (8.5-10.1); GLUCOSE 86 MG/DL (70-105)
[2020-02-07 04:04] LABS: CARBON DIOXIDE 20 MMOL/L (21-32)
[2020-02-07 04:06] LABS: CREATININE SERUM 0.68 MG/DL (0.60-1.30); GFR ESTIMATED > 60; PHOSPHORUS 3.7 MG/DL (2.3-4.7)
[2020-02-07 04:07] LABS: BUN/CREATININE RATIO 13
[2020-02-07 04:09] LABS: MAGNESIUM 1.8 MG/DL (1.6-2.4)
--- NOTE | 2020-02-07 04:56 | Pulmonary Consultation ---
History of Present Illness History of Present Illness Date Seen by Provider: Feb 07, 2020 Time Seen by Provider: 04:50 Date of Admission History of Present Illness 59yo with hx of a lot of psychological issues and recent admission. She tripped and fell at home and landed on her left side. She was found to have a 6th rib fracture. She has hx of pseudoseizures. Per RN she has had 8 seizures since admission. These seizures are suspected to be pseudoseizures. -Pt states she ran out of home meds 2-3 wks ago. (diazapam) she also takes gabapentin. Hypotension resolved. Allergies and Home Medications Allergies Coded Allergies: acetaminophen (Verified Allergy, Unknown, Hives, 12/15/19) aspirin (Verified Allergy, Unknown, HIVES, 04/08/19) ibuprofen (Verified Allergy, Unknown, Hives, 12/15/19) Uncoded Allergies: TORDOL (Allergy, Unknown, 04/08/19) Home Medications Albuterol Sulfate 1 Puff Puff, 2 PUFF INH Q4H PRN for SHORTNESS OF BREATH, (Reported) Amlodipine Besylate 10 Mg Tablet, 10 MG PO DAILY, (Reported) Cetirizine HCl 10 Mg Tablet, 10 MG PO DAILY, (Reported) Clopidogrel Bisulfate 75 Mg Tablet, 75 MG PO DAILY Prescribed by: TRENT RAMÍREZ on 01/03/20 0949 Cyclobenzaprine HCl 10 Mg Tablet, 10 MG PO Q8H Prescribed by: SANDRA PATEL on 03/03/19 0004 Desvenlafaxine Succinate 100 Mg Tab.er.24h, 100 MG PO HS, (Reported) Dexlansoprazole 60 Mg Cap.bp, 60 MG PO DAILY, (Reported) Escitalopram Oxalate 10 Mg Tablet, 10 MG PO DAILY, (Reported) Gabapentin 300 Mg Capsule, 300 MG PO TID, (Reported) Levetiracetam 500 Mg Tablet, 500 MG PO BID, (Reported) Pantoprazole Sodium 40 Mg Tablet.dr, 40 MG PO DAILY, (Reported) Potassium Chloride 10 Meq Tablet.er, 10 MEQ PO BID, (Reported) Quetiapine Fumarate 100 Mg Tablet, 100 MG PO BID, (Reported) Ropinirole HCl 1 Mg Tablet, 1 MG PO BID PRN for RESTLESS LEGS, (Reported) Ropinirole HCl 3 Mg Tablet, 3 MG PO HS, (Reported) Zolpidem Tartrate 10 Mg Tablet, 10 MG PO HS, (Reported) Past Eyckxgt-Ewsnov-Dxjbmx Hx Patient Social History Alcohol Use: Denies Use Recreational Drug Use: Yes Drug of Choice: Marijuana Smoking Status: Current Everyday Smoker Type Used: Cigarettes 2nd Hand Smoke Exposure: No Recent Foreign Travel: No Contact w/Someone Who Travel: No Recent Infectious Disease Expo: No Recent Hopitalizations: Yes (PAC placement) Physical Abuse: No Sexual Abuse: No Mistreated: No Fear: No Immunizations Up To Date Tetanus Booster (TDap): Unknown PED Vaccines UTD: Yes Date of Pneumonia Vaccine: Jul 27, 2006 Seasonal Allergies Seasonal Allergies: No Past Medical History Surgeries: Yes (port) Cardiac, Coronary Stent, Gallbladder, Hysterectomy Respiratory: Yes Pulmonary Embolism, Sleep Apnea, COPD Currently Using CPAP: No Currently Using BIPAP: No Cardiac: Yes (CARDIAC STENTS ) Coronary Artery Disease, Heart Murmur, Hypertension 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, 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) Headaches /Migraines, Seizure Disorder 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, 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 Sexually Transmitted Disease: No HIV/AIDS: No Genitourinary: No Gastrointestinal: Yes Gastroesophageal Reflux, Chronic Constipation Musculoskeletal: Yes Osteoporosis, Arthritis, Chronic Back Pain Endocrine: No HEENT: Yes Cataract Cancer: Yes Breast, Ovarian, Uterine Did You Recieve Any Treatments: Yes What Type of Treatment Did You: Chemotherapy, Surgical Intervention Psychosocial: Yes Sleep Difficulties, PTSD, Schizophrenia, Depression Integumentary: No Blood Disorders: Yes (hx of anemia) Adverse Reaction/Blood Tranf: No Family Medical History Cardiovascular disease 19 FATHER 19 MOTHER Cataracts Completed stroke 19 FATHER 19 MOTHER G8 BROTHER (X3) Diabetes mellitus 19 FATHER 19 MOTHER G8 BROTHER BROTHER FH: breast cancer 19 MOTHER Hypertension 19 FATHER 19 MOTHER Myocardial infarction G8 BROTHER No Pertinent Family Hx Review of Systems Time Seen by Provider: 04:56 Sepsis Event Evaluation Height, Weight, BMI Height: 5'5.00" Weight: 160lbs. 0.0oz. 72.113390sd; 20.00 BMI Method:Estimated Exam Exam Vital Signs Date Time Temp Pulse Resp B/P (MAP) Pulse Ox O2 Delivery O2 Flow Rate FiO2 02/07/20 04:00 99 Room Air 02/07/20 04:00 36.0 02/07/20 02:00 57 13 101/60 (74) 99 OxyMask 5.00 02/07/20 01:00 63 02/07/20 01:00 64 18 81/40 (54) 99 OxyMask 5.00 02/07/20 00:15 63 21 86/48 (61) 100 OxyMask 5.00 02/07/20 00:00 99 Room Air 02/07/20 00:00 66 25 86/52 (63) 100 OxyMask 5.00 02/06/20 23:45 69 21 94/50 (65) 100 OxyMask 5.00 02/06/20 23:37 65 02/06/20 23:30 36.8 64 14 78/39 (52) 100 OxyMask 5.00 02/06/20 23:30 OxyMask 5.00 02/06/20 23:08 69 13 90/41 100 OxyMask 02/06/20 21:27 100 OxyMask 15.00 02/06/20 20:58 36.8 94 20 122/84 (97) 94 Room Air I & O 02/07/20 07:00 Intake Total 1110 ml Output Total 300 ml Balance 810 ml Height & Weight Height: 5'5.00" Weight: 160lbs. 0.0oz. 72.533069qj; 20.00 BMI Method:Estimated Capillary Refill: Less Than 3 Seconds Gastrointestinal: normal bowel sounds, soft Results Lab Laboratory Tests 02/06/20 21:39 02/07/20 03:45 Assessment/Plan Assessment/Plan recurrent seizures - ? pseudoseizures -Restart home meds -Pt states she ran out of home meds 2-3 wks ago. (diazapam) she also takes gabapentin. -Continue Keppra restart home meds Fractured 6 rib left -Pain control Marijuanna use -Education Anemia -Monitor ARVIN PATE DO Feb 07, 2020 04:56
[2020-02-07] MEDS ORDERED: ENOXAPARIN 40 MG/0.4 ML (LOVENOX) SYR SC SCH (05:00)
--- NOTE | 2020-02-07 05:30 | NUR ---
0045: 8th SEIZURE; LASTED APPROXIMATELY 1 MIN; VSS 0530: 9TH SEIZURE; LASTED LESS THAN 1 MIN; VSS 0545: 10TH SEIZURE; DR. PATE AT BEDSIDE; SEIZURE STOPPED WITH PAINFUL STIMULI.
--- NOTE | 2020-02-07 06:26 | Diagnostic Imaging Report ---
PROCEDURE: CT head without contrast. TECHNIQUE: Multiple contiguous axial images were obtained through the brain without the use of intravenous contrast. Auto Exposure Controls were utilized during the CT exam to meet ALARA standards for radiation dose reduction. INDICATION: Seizure. COMPARISON: 01/02/2020 FINDINGS: Ventricles are normal in size, shape and position. There is no midline shift or mass effect. There is no hemorrhage or evidence of acute ischemia. No extra-axial fluid collection is seen. The bony calvarium, paranasal sinuses and mastoids are clear. IMPRESSION: Negative CT head. Agree with preliminary report. Dictated by: Dictated on workstation # [id number]
--- NOTE | 2020-02-07 06:57 | Diagnostic Imaging Report ---
INDICATION: Chest pain, rib fracture. COMPARISON: 01/03/2020 FINDINGS: Single view of the chest demonstrates stable right-sided Port-A-Cath in place. The lungs are clear. There is no pneumothorax, effusion or infiltrate. The heart size is stable. No obvious rib deformity is seen on this series. IMPRESSION: No appreciable pneumothorax. Dictated by: Dictated on workstation # [id number]
[2020-02-07] MEDS: GABAPENTIN 300 MG (NEURONTIN) CAP PO SCH ×2 (08:30→13:00)
[2020-02-07] MEDS: NS IV 1000 ML 1,000 ML IV SCH ×2 (08:30)
[2020-02-07] MEDS ORDERED: LEVETIRACETAM INJECTION 1,000 MG in NS (IVPB) 100 ML IV SCH (09:00)
[2020-02-07] MEDS ORDERED: RT-ALBUINH PO (11:09)
[2020-02-07] MEDS ORDERED: IPRA3AMP31 NEB (11:09)
[2020-02-07] MEDS ORDERED: COLE1TAB PO (11:09)
[2020-02-07] MEDS ORDERED: DIAZ5TAB49 PO (11:09)
[2020-02-07] MEDS ORDERED: LANS30CA PO (11:09)
[2020-02-07] MEDS ORDERED: MIRT15TA6 PO (11:09)
[2020-02-07] MEDS ORDERED: CITA40TA11 PO (11:09)
[2020-02-07] MEDS ORDERED: PRAZ2CAP2 PO (11:38)
[2020-02-07] MEDS ORDERED: CLOP75TA69 PO (11:38)
--- NOTE | 2020-02-07 11:40 | NUR ---
SPOKE WITH THE PT (AND HER KEITH) WENT THRU THE EXT MED HISTORY AND CALLED [facility] TO COMPLETE THE MED REC BETWEEN THE PT AND HER THEY WERE ABLE TO LIST ALL HER MEDICATIONS AND ANSWER ALL MY QUESTIONS. MIKE- THE PT THOUGHT SHE WAS TAKING BUT [facility] HAD NO RECORD OF THIS MED- WHEN I SPOKE WITH HER HE SAID SHE HAS BEEN OUT OF IT FOR SEVERAL MONTHS AND HAS NOT BEEN TAKING OTC MEDS: TYLENOL PRN [employer]
[2020-02-07] MEDS ORDERED: ACET-2267 PO (11:44)
[2020-02-07] MEDS ORDERED: MULT-1136 PO (11:44)
[2020-02-07] MEDS ORDERED: LIDO700A45 TP (14:15)
[2020-02-07] MEDS ORDERED: OXYC5TAB96 PO (14:15)
--- NOTE | 2020-02-07 14:28 | NUR ---
MEAGANHELDER Hema demonstrates understanding of discharge instructions and accurately returns instructions upon questioning. Copy of Post-Discharge Instructions and Medication Discharge Instructions given to PATIENT. JESUS RHODESILAH Hema is able to manage continuing needs after discharge. Patients belongings returned to PATIENT. Skin dry and intact; no breakdown noted. Patient discharged from [facility] on 02/07/20 at 1428. HELDER RHODES left floor via WC, accompanied by SURGERY AID. PATIENT NARCOTIC PERSCRIPTION SENT WITH PATIENT, ET OTHER PERSCRIPTIONS ELECTRONICALLY TRANSMITTED. PATIENT HAD NO QUESTIONS REGARDING DISCHARGE.
--- NOTE | 2020-02-07 15:39 | Discharge Summary ---
Discharge Summary Hospital Course Was the Problem List Reviewed?: Yes Problems/Dx: (1) Rib fracture Status: Acute Qualifiers: Qualified Codes: S22.32XA - Fracture of one rib, left side, initial encounter for closed fracture (2) Seizure disorder Status: Chronic Hospital Course Date of Admission: Feb 06, 2020 at 22:22 Admission Diagnosis : chest pain Family Physician/Provider: Osbaldo Adams DO Date of Discharge: 02/07/20 Discharge Diagnosis: acute left-sided rib fracture Hospital Course: Serina Abarca is a 59-year-old female who presented to following a ground- level fall and was admitted with a left-sided rib fracture. She was treated with pain medications and she improved rapidly. Her course was complicated by possible seizures. Her seizure activity was more consistent with pseudoseizures, as she was responsive to pain during this episode. She was recommended to continue her home seizure medications. She was given a small supply of oxycodone and lidocaine patches for her rib fracture. She should follow-up with her primary care physician. Labs and Pending Lab Test: Laboratory Tests 02/06/20 21:39: White Blood Count 11.8H, Red Blood Count 3.81L, Hemoglobin 11.9, Hematocrit 36, Mean Corpuscular Volume 94, Mean Corpuscular Hemoglobin 31, Mean Corpuscular Hemoglobin Concent 33, Red Cell Distribution Width 15.7H, Platelet Count 414H, Mean Platelet Volume 8.5, Neutrophils (%) (Auto) 65, Lymphocytes (%) (Auto) 27, Monocytes (%) (Auto) 6, Eosinophils (%) (Auto) 2, Basophils (%) (Auto) 0, Neutrophils # (Auto) 7.7, Lymphocytes # (Auto) 3.1, Monocytes # (Auto) 0.7, Eosinophils # (Auto) 0.2, Basophils # (Auto) 0.0, Sodium Level 141, Potassium Level 3.8, Chloride Level 109H, Carbon Dioxide Level 16L, Anion Gap 16H, Blood Urea Nitrogen 11, Creatinine 0.91, Estimat Glomerular Filtration Rate > 60, BUN/Creatinine Ratio 12, Glucose Level 100, Calcium Level 8.7, Corrected Calcium 8.8, Magnesium Level 1.9, Total Bilirubin 0.2, Aspartate Amino Transf (AST/SGOT) 9, Alanine Aminotransferase (ALT/SGPT) < 6, Alkaline Phosphatase 137H, Total Protein 7.0, Albumin 3.9, Serum Alcohol < 10 02/06/20 21:42: Urine Color YELLOW, Urine Clarity CLEAR, Urine pH 6.0, Urine Specific [place] 1.020, Urine Protein NEGATIVE, Urine Glucose (UA) NEGATIVE, Urine Ketones NEGATIVE, Urine Nitrite NEGATIVE, Urine Bilirubin NEGATIVE, Urine Urobilinogen 0.2, Urine Leukocyte Esterase NEGATIVE, Urine RBC (Auto) NEGATIVE, Urine RBC NONE, Urine WBC 0-2, Urine Squamous Epithelial Cells 2-5, Urine Crystals NONE, Urine Bacteria MODERATEH, Urine Casts PRESENT, Urine Hyaline Casts 0-2H, Urine Mucus SMALLH, Urine Culture Indicated YES, Urine Opiates Screen NEGATIVE, Urine Oxycodone Screen NEGATIVE, Urine Methadone Screen NEGATIVE, Urine Propoxyphene Screen NEGATIVE, Urine Barbiturates Screen NEGATIVE, Ur Tricyclic Antid epressants Screen NEGATIVE, Urine Phencyclidine Screen NEGATIVE, Urine Amphetamines Screen NEGATIVE, Urine Methamphetamines Screen NEGATIVE, Urine Benzodiazepines Screen POSITIVEH, Urine Cocaine Screen NEGATIVE, Urine Cannab inoids Screen POSITIVEH 02/07/20 03:45: White Blood Count 8.5, Red Blood Count 3.24L, Hemoglobin 10.2L, Hematocrit 31L, Mean Corpuscular Volume 95, Mean Corpuscular Hemoglobin 31, Mean Corpuscular Hemoglobin Concent 33, Red Cell Distribution Width 15.6H, Platelet Count 328, Mean Platelet Volume 8.5, Neutrophils (%) (Auto) 54, Lymphocytes (%) (Auto) 34, Monocytes (%) (Auto) 8, Eosinophils (%) (Auto) 4, Basophils (%) (Auto) 0, Neutrophils # (Auto) 4.6, Lymphocytes # (Auto) 2.9, Monocytes # (Auto) 0.7, Eosinophils # (Auto) 0.3, Basophils # (Auto) 0.0, Sodium Level 141, Potassium Level 3.7, Chloride Level 113H, Carbon Dioxide Level 20L, Anion Gap 8, Blood Urea Nitrogen 9, Creatinine 0.68, Estimat Glomerular Filtration Rate > 60, BUN/Creatinine Ratio 13, Glucose Level 86, Calcium Level 7.7L, Magnesium Level 1.8, Phosphorus Level 3.7 Home Meds Active Oxycodone IR (Oxycodone HCl) 5 Mg Tablet 5 Mg PO Q6H PRN 7 Days Lidocaine 5% Patch (Lidocaine) 1 Each Adh..patch 1 Each TP Q12H PRN MDD 2 7 Days 2 patches max for 12 hours, then 12 hours patch-free period. Reported Multivitamin 1 Each Tablet 1 Each PO DAILY Tylenol Extra Strength (Acetaminophen) 500 Mg Tablet 1,000 Mg PO Q8H PRN Prazosin HCl 2 Mg Capsule 2 Mg PO DAILY PT TAKES 2MG AND 1MG DAILY Plavix (Clopidogrel Bisulfate) 75 Mg Tablet 75 Mg PO DAILY Iprat-Albut 0.5-3(2.5) mg/3 ml (Ipratropium/Albuterol Sulfate) 3 Ml Ampul.neb 3 Ml NEB Q4H PRN Lansoprazole 30 Mg Capsule.dr 30 Mg PO DAILY Proair Hfa (Albuterol Sulfate) 1 Puff Puff 2 Puff PO Q6H PRN Mirtazapine 15 Mg Tablet 15 Mg PO HS Citalopram HBr (Citalopram Hydrobromide) 40 Mg Tablet 40 Mg PO Colestipol HCl 1 Gm Tablet 2 Gm PO BID Diazepam 5 Mg Tablet 5 Mg PO BID PRN Naproxen 500 Mg Tablet 500 Mg PO BID PRN Prazosin HCl 1 Mg Capsule 1 Mg PO DAILY Amlodipine Besylate 10 Mg Tablet 10 Mg PO DAILY Proair Hfa (Albuterol Sulfate) 1 Puff Puff 2 Puff INH Q4H PRN Ropinirole HCl 3 Mg Tablet 3 Mg PO TID Cetirizine HCl 10 Mg Tablet 10 Mg PO DAILY Assessment/Pt Instructions take medications as prescribed. Follow-up with your primary care physician. Discharge Planning: <30 minutes discharge planning Discharge Instructions Discharge Diet: No Restrictions Activity as Tolerated: Yes Discharge Physical Examination Vital Signs Vital Signs Date Time Temp Pulse Resp B/P (MAP) Pulse Ox O2 Delivery O2 Flow Rate FiO2 02/07/20 14:59 37.1 52 16 90/60 94 Room Air 5.00 General Appearance: No Apparent Distress, WD/WN Respiratory: Lungs Clear, Normal Breath Sounds, No Respiratory Distress Cardiovascular: Regular Rate, Rhythm, No Edema, No Murmur Gastrointestinal: Normal Bowel Sounds, Non Tender, Soft Extremity: Normal Inspection, Non Tender, No Pedal Edema Skin: Normal Color, Warm/Dry Neurologic/Psychiatric: Alert, Normal Mood/Affect Allergies: Coded Allergies: acetaminophen (Verified Allergy, Unknown, Hives, 12/15/19) aspirin (Verified Allergy, Unknown, HIVES, 04/08/19) ibuprofen (Verified Allergy, Unknown, Hives, 12/15/19) Uncoded Allergies: TORDOL (Allergy, Unknown, 04/08/19) Discharge Summary Date of Admission Feb 06, 2020 at 22:22 Date of Discharge Feb 07, 2020 at 14:28 Discharge Date: Feb 07, 2020 Discharge Time: 14:28 Admission Diagnosis rib fracture Discharge Diagnosis (1) Rib fracture Status: Acute Qualifiers: Qualified Codes: S22.32XA - Fracture of one rib, left side, initial encounter for closed fracture Clinical Quality Measures DVT/VTE Risk/Contraindication: Risk Factor Score Per Nursin RFS Level Per Nursing on Admit: 3=High GORDO GARCIA MD Feb 07, 2020 15:38
== END 2020-02-07 14:28 | disposition home or self-care (01) ==
LOC: EDUNIT# 20:53 → ER 20:55 → ICU 22:22 → INTOOBSV 22:22
PROVIDERS: ADMIT Family Medicine; ATTEND Family Medicine
DX: S22.32XA Fracture of one rib, left side, initial encounter for closed fracture (principal); G40.909 Epilepsy, unspecified, not intractable, without status epilepticus; F17.210 Nicotine dependence, cigarettes, uncomplicated; J44.9 Chronic obstructive pulmonary disease, unspecified; G47.30 Sleep apnea, unspecified; I25.10 Atherosclerotic heart disease of native coronary artery without angina pectoris; I10 Essential (primary) hypertension; G43.909 Migraine, unspecified, not intractable, without status migrainosus; K21.9 Gastro-esophageal reflux disease without esophagitis; K59.09 Other constipation; M19.90 Unspecified osteoarthritis, unspecified site; G89.29 Other chronic pain; M54.9 Dorsalgia, unspecified; M81.0 Age-related osteoporosis without current pathological fracture; F32.9 Major depressive disorder, single episode, unspecified; F43.10 Post-traumatic stress disorder, unspecified; D64.9 Anemia, unspecified; F12.90 Cannabis use, unspecified, uncomplicated; Z79.891 Long term (current) use of opiate analgesic; Z79.899 Other long term (current) drug therapy; Z79.02 Long term (current) use of antithrombotics/antiplatelets; Z88.6 Allergy status to analgesic agent; Z88.8 Allergy status to other drugs, medicaments and biological substances; Z85.3 Personal history of malignant neoplasm of breast; Z85.43 Personal history of malignant neoplasm of ovary
CPT/HCPCS: 36415; 51701; 70450; 71045; 71250; 80048; 80053; 80306; 80320; 81000; 83735; 84100; 85025; 87077; 87081; 87088; 93041; G0378

== ENCOUNTER 2020-04-10 01:47 | Emergency (ER) | payer MEDICAID ==
[~2020-04-10] VITALS: Ht 165 cm; Wt 64.0 kg
[~2020-04-10 01:47] MED LIST changes: +ACET-2267 PO; +CITA40TA11 PO; +CLOP75TA69 PO; +COLE1TAB PO; +DIAZ5TAB49 PO; +IPRA3AMP31 NEB; +LANS30CA PO; +LIDO700A45 TP; +MIRT15TA6 PO; +MULT-1136 PO; +OXYC5TAB96 PO; +PRAZ2CAP2 PO; +RT-ALBUINH PO; +TRAM-42 PO
[2020-04-10] MEDS ORDERED: ETOMIDATE IV SOLN 20 MG/10 ML VIAL IV ONE (01:50)
[2020-04-10] MEDS ORDERED: SUCCINYLCHOLINE INJ 100 MG/5 ML SYR INJ ONE (01:50)
[2020-04-10] MEDS ORDERED: ROCURONIUM 10 MG/ML 5 ML SYRINGE IV ONE (01:50)
[2020-04-10] MEDS ORDERED: LORazepam INJ 2 MG/ML (ATIVAN) VIAL ONE ×3 (02:00→03:35)
[2020-04-10 02:07] LABS: BASOPHILS % (AUTO) 1 % (0-10); EOSINOPHILS # (AUTO) 0.2 10^3/uL (0.0-0.3); EOSINOPHILS % (AUTO) 2 % (0-10); HEMATOCRIT 35 % (35-52); HEMOGLOBIN 11.8 G/DL (11.5-16.0); LYMPHOCYTES # (AUTO) 2.9 X 10^3 (1.0-4.0); LYMPHOCYTES % (AUTO) 34 % (12-44); MEAN CORPUSCULAR HEMOGLOBIN 31 PG (25-34); MEAN CORPUSCULAR HGB CONC 34 G/DL (32-36); MEAN CORPUSCULAR VOLUME 93 FL (80-99); MEAN PLATELET VOLUME 9.6 FL (7.4-10.4); MONOCYTES # (AUTO) 0.7 X 10^3 (0.0-1.0); MONOCYTES % (AUTO) 9 % (0-12); NEUTROPHILS # (AUTO) 4.6 X 10^3 (1.8-7.8); NEUTROPHILS % (AUTO) 55 % (42-75); PLATELET COUNT 284 10^3/uL (130-400); RED CELL DISTRIBUTION WIDTH 14.4 % (10.0-14.5); WHITE BLOOD COUNT 8.4 10^3/uL (4.3-11.0)
[2020-04-10] MEDS ORDERED: ONDANSETRON 4 MG/2 ML (SDV) Z0FRAN ONE (02:13)
[2020-04-10] MEDS ORDERED: ONDANSETRON 4 MG/2 ML (SDV) Z0FRAN IVP ONE (02:15)
[2020-04-10] MEDS ORDERED: LEVETIRACETAM INJECTION 500 MG in NS (IVPB) 100 ML IV ONE (02:15)
[2020-04-10] MEDS ORDERED: MIDAZOLAM 2 MG/2 ML (VERSED) VIAL ONE ×2 (02:25→02:30)
[2020-04-10 02:29] LABS: ALANINE AMINOTRANSFERASE 9 U/L (0-55); ALBUMIN 3.7 GM/DL (3.2-4.5); ALKALINE PHOSPHATASE 127 U/L (40-136); BILIRUBIN,TOTAL 0.2 MG/DL (0.1-1.0); BUN/CREATININE RATIO 10; CALCIUM 8.7 MG/DL (8.5-10.1); CARBON DIOXIDE 20 MMOL/L (21-32); CHLORIDE 113 MMOL/L (98-107); CREATININE SERUM 0.69 MG/DL (0.60-1.30); GFR ESTIMATED > 60; GLUCOSE 77 MG/DL (70-105); MAGNESIUM 1.9 MG/DL (1.6-2.4); POTASSIUM 3.5 MMOL/L (3.6-5.0); SODIUM 145 MMOL/L (135-145); TOTAL PROTEIN 6.5 GM/DL (6.4-8.2)
[2020-04-10 02:39] LABS: BILIRUBIN,URINE NEGATIVE (NEGATIVE); CLARITY,URINE CLEAR; COLOR,URINE YELLOW; GLUCOSE, URINE (UA) NEGATIVE (NEGATIVE); KETONES,URINE NEGATIVE (NEGATIVE); LEUKOCYTE ESTERASE ,URINE NEGATIVE (NEGATIVE); NITRITE,URINE NEGATIVE (NEGATIVE); PH,URINE 6.5 (5-9); PROTEIN,URINE NEGATIVE (NEGATIVE)
[2020-04-10] MEDS ORDERED: PROPOFOL DRIP (ICU) 100 ML IV ONE (02:43)
[2020-04-10] MEDS ORDERED: DIAZEPAM INJ 10 MG/2 ML (VALIUM) SYR IVP ONE (02:45)
[2020-04-10 02:49] LABS: BACTERIA,URINE TRACE /HPF
--- NOTE | 2020-04-10 02:55 | NUR ---
0255:26 - [address]'s orders 0255:29 - [address] orders 0255:49 - propofol drip started at 20mcg/kg/min per Drs orders 0259:31 propofol drop increased to 40mcg/kg/min per Dr's orders 0259:51 - intubation complete 7.5cm , 25cm at lip per Dr. Yi 0310- 45mcg/kg/min propofol drip increased per Dr's orders 0312- 7.5cm tube pulled back to 23 at lip 0312- propofol drip increased to 50mcg/kg/min per Dr's orders 0320 18Fr OG placed and secured 0322- propofol drip increased to 55mcg/kg/min per Dr's orders 0326- 4mg ativan administered per Dr's orders 0329 1g Keppra in 100ml NS started at 440ml/hr per Dr's orders 0331- propofol drip increased to 70mcg/kg/min per Dr's orders 0332- 4mg ativan administered per Dr's orders 0340- propofol drip increased to max dose of 80 mcg/kg/min per DrMacario orders
[2020-04-10] MEDS ORDERED: LEVETIRACETAM 500 MG/5 ML (KEPPRA) VIAL IV ONE (03:25)
[2020-04-10] MEDS ORDERED: NS (IVPB) 100 ML ONE (03:26)
[2020-04-10] MEDS ORDERED: LEVETIRACETAM INJECTION 1,000 MG in NS (IVPB) 100 ML IV ONE (03:30)
[2020-04-10] MEDS ORDERED: PROPOFOL DRIP (ICU) 100 ML IV SCH (03:45)
[2020-04-10] MEDS ORDERED: LORazepam INJ 2 MG/ML (ATIVAN) VIAL IVP ONE ×2 (03:45)
[2020-04-10 03:47] LABS: AMPHETAMINE SCREEN, URINE NEGATIVE (NEGATIVE); BARBITURATE SCREEN URINE NEGATIVE (NEGATIVE); BENZODIAZEPINES SCREEN URINE POSITIVE (NEGATIVE); CANNABINOID SCREEN, URINE POSITIVE (NEGATIVE); COCAINE SCREEN URINE NEGATIVE (NEGATIVE); METHADONE STAT NEGATIVE (NEGATIVE); METHAMPHETAMINE SCREEN URINE S NEGATIVE (NEGATIVE); OPIATE SCREEN URINE NEGATIVE (NEGATIVE); OXYCODONE STAT POSITIVE (NEGATIVE); PROPOXYPHENE STAT NEGATIVE (NEGATIVE); TRICYCLIC ANTIDEPRESSANTS SCRE NEGATIVE (NEGATIVE)
--- NOTE | 2020-04-10 03:55 | NUR ---
Pt to CT at this time
--- NOTE | 2020-04-10 03:56 | ED Neurological Problem ---
General Chief Complaint: Neurological Problems Stated Complaint: SEIZURES Nursing Triage Note: Pt to [facility] via [facility] with seizure activity. Pt has Hx of seizures. EMS reports giving 2.5mg Versed via nasal en route. Nursing Sepsis Screen: No Definite Risk Source: patient Exam Limitations: no limitations History of Present Illness Date Seen by Provider: Apr 10, 2020 Time Seen by Provider: 01:49 Initial Comments This 59-year-old woman presents to the emergency room after having 2 seizures at a hotel where she and her were staying. Each seizure lasted 2 minutes or less. She has known seizure disorder for which she takes diazepam daily. Her last dose was April 09. She admits to marijuana use but denies any other drug use. She denies being ill in any way recently. She has had no cough, fever, vomiting, etc. She is currently in remission from ovarian and uterine cancer. EMS administered Versed 2.5 mg nasally during the second seizure. She is somnolent but answers questions upon arrival. Patient reported being bitten by a spider on her left buttock yesterday. She has a tiny red spot there. Allergies and Home Medications Allergies Coded Allergies: acetaminophen (Verified Allergy, Unknown, Hives, 12/15/19) aspirin (Verified Allergy, Unknown, HIVES, 04/08/19) ibuprofen (Verified Allergy, Unknown, Hives, 12/15/19) Uncoded Allergies: TORDOL (Allergy, Unknown, 04/08/19) Home Medications Acetaminophen 500 Mg Tablet, 1,000 MG PO Q8H PRN for PAIN-MILD (1-4), (Reported) Albuterol Sulfate 1 Puff Puff, 2 PUFF INH Q4H PRN for SHORTNESS OF BREATH, (Reported) Albuterol Sulfate 1 Puff Puff, 2 PUFF PO Q6H PRN for SHORTNESS OF BREATH, (Reported) Amlodipine Besylate 10 Mg Tablet, 10 MG PO DAILY, (Reported) Cetirizine HCl 10 Mg Tablet, 10 MG PO DAILY, (Reported) Clopidogrel Bisulfate 75 Mg Tablet, 75 MG PO DAILY, (Reported) Colestipol HCl 1 Gm Tablet, 2 GM PO BID, (Reported) Diazepam 5 Mg Tablet, 5 MG PO BID PRN for ANXIETY, (Reported) Ipratropium/Albuterol Sulfate 3 Ml Ampul.neb, 3 ML NEB Q4H PRN for SHORTNESS OF BREATH, (Reported) Lansoprazole 30 Mg Capsule.dr, 30 MG PO DAILY, (Reported) Lidocaine 1 Each Adh..patch, 1 EACH TP Q12H PRN for Neuropathic pain 2 patches max for 12 hours, then 12 hours patch-free period. Prescribed by: GORDO GARCIA on 02/07/201414 Mirtazapine 15 Mg Tablet, 15 MG PO HS, (Reported) Multivitamin 1 Each Tablet, 1 EACH PO DAILY, (Reported) Naproxen 500 Mg Tablet, 500 MG PO BID PRN for PAIN-MILD (1-4), (Reported) Oxycodone HCl 5 Mg Tablet, 5 MG PO Q6H PRN for PAIN-SEVERE (8-10) Prescribed by: GORDO GARCIA on 02/07/201414 Prazosin HCl 1 Mg Capsule, 1 MG PO DAILY, (Reported) Prazosin HCl 2 Mg Capsule, 2 MG PO DAILY, (Reported) PT TAKES 2MG AND 1MG DAILY Ropinirole HCl 3 Mg Tablet, 3 MG PO TID, (Reported) Patient Home Medication List Home Medication List Reviewed: Yes Review of Systems Review of Systems Constitutional: no symptoms reported Eyes: No Symptoms Reported Ears, Nose, Mouth, Throat: no symptoms reported Respiratory: no symptoms reported Cardiovascular: no symptoms reported Gastrointestinal: no symptoms reported Genitourinary: no symptoms reported : No Musculoskeletal: no symptoms reported Skin: no symptoms reported Psychiatric/Neurological: See HPI Endocrine: No Symptoms Reported Hematologic/Lymphatic: No Symptoms Reported Past Hmranav-Gfgayt-Ljsgse Hx Past Med/Social Hx: Reviewed Nursing Past Med/Soc Hx Patient Social History Alcohol Use: Rarely Uses Recreational Drug Use: Yes Drug of Choice: Marijuana Smoking Status: Current Everyday Smoker Type Used: Cigarettes 2nd Hand Smoke Exposure: No Recent Foreign Travel: No Contact w/Someone Who Travel: No Recent Infectious Disease Expo: No Recent Hopitalizations: Yes (PAC placement) Immunizations Up To Date Tetanus Booster (TDap): Unknown PED Vaccines UTD: Yes Date of Pneumonia Vaccine: Jul 27, 2006 Seasonal Allergies Seasonal Allergies: No Past Medical History Surgeries: Yes (port) Cardiac, Coronary Stent, Gallbladder, Hysterectomy Respiratory: Yes Pulmonary Embolism, Sleep Apnea, COPD Currently Using CPAP: No Currently Using BIPAP: No Cardiac: Yes (CARDIAC STENTS ) Coronary Artery Disease, Heart Murmur, Hypertension 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, 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) Headaches /Migraines, Seizure Disorder : No 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 Disorders: Yes (hx of uterine and breast cancer) 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, 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 Sexually Transmitted Disease: No HIV/AIDS: No Genitourinary: No Gastrointestinal: Yes Gastroesophageal Reflux, Chronic Constipation Musculoskeletal: Yes Osteoporosis, Arthritis, Chronic Back Pain Endocrine: No HEENT: Yes Cataract Cancer: Yes Breast, Ovarian, Uterine Did You Recieve Any Treatments: Yes What Type of Treatment Did You: Chemotherapy, Surgical Intervention Psychosocial: Yes Sleep Difficulties, PTSD, Schizophrenia, Depression Integumentary: No Blood Disorders: Yes (hx of anemia) Adverse Reaction/Blood Tranf: No Family Medical History Reviewed Nursing Family Hx Cardiovascular disease 19 FATHER 19 MOTHER Cataracts Completed stroke 19 FATHER 19 MOTHER G8 BROTHER (X3) Diabetes mellitus 19 FATHER 19 MOTHER G8 BROTHER BROTHER FH: breast cancer 19 MOTHER Hypertension 19 FATHER 19 MOTHER Myocardial infarction G8 BROTHER No Pertinent Family Hx Physical Exam Vital Signs Vital Signs - First Documented 04/10/20 01:57 Temp 37.1 Pulse 68 Resp 14 B/P (MAP) 138/79 (98) Pulse Ox 100 O2 Delivery Nasal Cannula O2 Flow Rate 2.00 Capillary Refill : Less Than 3 Seconds Height, Weight, BMI Height: 5'5.00" Weight: 160lbs. 0.0oz. [id number]; 23.00 BMI Method:Estimated General Appearance: WD/WN, no apparent distress HEENT: PERRL/EOMI, normal ENT inspection Neck: normal inspection Respiratory: lungs clear, normal breath sounds, no respiratory distress, no accessory muscle use Cardiovascular: regular rate, rhythm, no edema, no murmur Gastrointestinal: normal bowel sounds, non tender, soft Extremities: normal inspection, no pedal edema Neurologic/Psychiatric: audio experience expert II-XII nml as tested, no motor/sensory deficits, alert, normal mood/affect, oriented x 3, other (postictal stages after each seizure were brief) Crainal Nerves: normal hearing, normal speech, PERRL Motor/Sensory: no motor deficit, no sensory deficit Skin: normal color, warm/dry Stroke Stroke Thrombolytic Exclusion Age 18 or Over: Yes Acute intenal hemorrhage: No History of CVA: No Uncontrolled Coagulation Defec: No Intracranial Hemorrhage: No Severe Hypertension: No GI or Bleed: No Subarachnoid Hemorrhage: No Intracranial Neoplasm/Aneurysm: No Oral Anticoagulants: No Procedures/Interventions Date of ETT Placement: Apr 10, 2020 Intubation Method: orotracheal Tube Size: 7.5 Medications: Etomidate, Propofol, Succinylcholine, Versed Positive End Tide CO2: Yes Breath Sounds after Intubation: bilateral-equal Intubation Complications: nosebleed, vomited Post Intubation Xray: Yes ET tube in the right bronchus. There was retracted 4 cm. Progress/Results/Core Measures Results/Orders Lab Results Laboratory Tests Test 04/10/20 01:53 04/10/20 02:00 04/10/20 02:23 Range/Units Glucometer 85 70-110 MG/DL White Blood Count 8.4 4.3-11.0 10^3/uL Red Blood Count 3.77 L 4.35-5.85 10^6/uL Hemoglobin 11.8 11.5-16.0 G/DL Hematocrit 35 35-52 % Mean Corpuscular Volume 93 80-99 FL Mean Corpuscular Hemoglobin 31 25-34 PG Mean Corpuscular Hemoglobin Concent 34 32-36 G/DL Red Cell Distribution Width 14.4 10.0-14.5 % Platelet Count 284 130-400 10^3/uL Mean Platelet Volume 9.6 7.4-10.4 FL Neutrophils (%) (Auto) 55 42-75 % Lymphocytes (%) (Auto) 34 12-44 % Monocytes (%) (Auto) 9 0-12 % Eosinophils (%) (Auto) 2 0-10 % Basophils (%) (Auto) 1 0-10 % Neutrophils # (Auto) 4.6 1.8-7.8 X 10^3 Lymphocytes # (Auto) 2.9 1.0-4.0 X 10^3 Monocytes # (Auto) 0.7 0.0-1.0 X 10^3 Eosinophils # (Auto) 0.2 0.0-0.3 10^3/uL Basophils # (Auto) 0.0 0.0-0.1 10^3/uL Sodium Level 145 135-145 MMOL/L Potassium Level 3.5 L 3.6-5.0 MMOL/L Chloride Level 113 H 98-107 MMOL/L Carbon Dioxide Level 20 L 21-32 MMOL/L Anion Gap 12 5-14 MMOL/L Blood Urea Nitrogen 7 7-18 MG/DL Creatinine 0.69 0.60-1.30 MG/DL Estimat Glomerular Filtration Rate > 60 BUN/Creatinine Ratio 10 Glucose Level 77 70-105 MG/DL Calcium Level 8.7 8.5-10.1 MG/DL Corrected Calcium 8.9 8.5-10.1 MG/DL Magnesium Level 1.9 1.6-2.4 MG/DL Total Bilirubin 0.2 0.1-1.0 MG/DL Aspartate Amino Transf (AST/SGOT) 14 5-34 U/L Alanine Aminotransferase (ALT/SGPT) 9 0-55 U/L Alkaline Phosphatase 127 40-136 U/L Total Protein 6.5 6.4-8.2 GM/DL Albumin 3.7 3.2-4.5 GM/DL Serum Alcohol < 10 <10 MG/DL Urine Color YELLOW Urine Clarity CLEAR Urine pH 6.5 5-9 Urine Specific [place] 1.020 1.016-1.022 Urine Protein NEGATIVE NEGATIVE Urine Glucose (UA) NEGATIVE NEGATIVE Urine Ketones NEGATIVE NEGATIVE Urine Nitrite NEGATIVE NEGATIVE Urine Bilirubin NEGATIVE NEGATIVE Urine Urobilinogen 0.2 < = 1.0 MG/DL Urine Leukocyte Esterase NEGATIVE NEGATIVE Urine RBC (Auto) NEGATIVE NEGATIVE Urine RBC NONE /HPF Urine WBC NONE /HPF Urine Squamous Epithelial Cells 5-10 /HPF Urine Crystals NONE /LPF Urine Bacteria TRACE /HPF Urine Casts NONE /LPF Urine Mucus NEGATIVE /LPF Urine Culture Indicated NO Urine Opiates Screen NEGATIVE NEGATIVE Urine Oxycodone Screen POSITIVE H NEGATIVE Urine Methadone Screen NEGATIVE NEGATIVE Urine Propoxyphene Screen NEGATIVE NEGATIVE Urine Barbiturates Screen NEGATIVE NEGATIVE Ur Tricyclic Antidepressants Screen NEGATIVE NEGATIVE Urine Phencyclidine Screen NEGATIVE NEGATIVE Urine Amphetamines Screen NEGATIVE NEGATIVE Urine Methamphetamines Screen NEGATIVE NEGATIVE Urine Benzodiazepines Screen POSITIVE H NEGATIVE Urine Cocaine Screen NEGATIVE NEGATIVE Urine Cannabinoids Screen POSITIVE H NEGATIVE My Orders Orders - YVES ORTEGA MD Accucheck Stat ONCE (04/10/20 01:53) Ed Iv/Invasive Line Start (04/10/20:53) Monitor-Rhythm Ecg Trace Only (04/10/20:53) Alcohol (04/10/20 01:53) Cbc With Automated Diff (04/10/20 01:53) Comprehensive Metabolic Panel (04/10/20:53) Magnesium (04/10/20:53) Ua Culture If Indicated (04/10/20 01:53) Chest 1 View, Ap/Pa Only (04/10/20 01:53) Ct Head Wo (04/10/20 01:53) Lorazepam Injection (Ativan Injection) (04/10/20 02:00) Levetiracetam Injection (Keppra Injectio (04/10/20 02:15) Ondansetron Injection (Zofran Injectio (04/10/20 02:15) Ondansetron Injection (Zofran Injectio (04/10/20 02:13) Midazolam Injection (Versed Injection) (04/10/20 02:25) Midazolam Injection (Versed Injection) (04/10/20 02:30) Diazepam Injection (Valium Injection) (04/10/20 02:45) Propofol Drip (Icu) (Diprivan Drip (Icu) (04/10/20 02:43) Chest 1 View, Ap/Pa Only (04/10/20 03:08) Drug Screen Stat (Urine) (04/10/20 03:13) Chest 1 View, Ap/Pa Only (04/10/20 03:15) Levetiracetam Injection (Keppra Injectio (04/10/20 03:30) Levetiracetam Injection (Keppra Injectio (04/10/20 03:25) Lorazepam Injection (Ativan Injection) (04/10/20 03:26) Ns (Ivpb) (Sodium Chloride 0.9% Ivpb Bag (04/10/20 03:26) Propofol Drip (Icu) (Diprivan Drip (Icu) (04/10/20 03:45) Sedation Communication Q48H (04/10/20 03:35) Lorazepam Injection (Ativan Injection) (04/10/20 03:45) Lorazepam Injection (Ativan Injection) (04/10/20 03:45) Lorazepam Injection (Ativan Injection) (04/10/20 03:35) Medications Given in ED Current Medications Medications Dose Ordered Sig/Matt Route Start Time Stop Time Status Last Admin Dose Admin Diazepam 5 mg ONCE ONCE IVP 04/10/20 02:45 04/10/20 02:46 DC 04/10/20 02:47 5 MG Levetiracetam 1000 mg/Sodium Chloride 110 ml @ 440 mls/hr ONCE ONCE IV 04/10/20 03:30 04/10/20 03:44 DC 04/10/20 03:32 440 MLS/HR Levetiracetam 500 mg/Sodium Chloride 105 ml @ 210 mls/hr ONCE ONCE IV 04/10/20 02:15 04/10/20 02:44 DC 04/10/20 02:12 210 MLS/HR Lorazepam 2 mg STK-MED ONCE .ROUTE 04/10/20 02:00 04/10/20 02:01 DC 04/10/20 02:00 2 MG Lorazepam 4 mg ONCE ONCE IVP 04/10/20 03:45 04/10/20 03:46 DC 04/10/20 03:26 4 MG Lorazepam 4 mg ONCE ONCE IVP 04/10/20 03:45 04/10/20 03:46 DC 04/10/20 03:32 4 MG Midazolam HCl 2 mg STK-MED ONCE .ROUTE 04/10/20 02:25 04/10/20 02:26 DC 04/10/20 02:24 2 MG Midazolam HCl 2 mg STK-MED ONCE .ROUTE 04/10/20 02:30 04/10/20 02:31 DC 04/10/20 02:31 2 MG Ondansetron HCl 8 mg ONCE ONCE IVP 04/10/20 02:15 04/10/20 02:16 DC 04/10/20 02:17 8 MG Vital Signs/I&O 04/10/20 04/10/20 04/10/20 01:57 02:55 04:36 Temp 37.1 37.1 Pulse 68 64 56 Resp 14 14 B/P (MAP) 138/79 (98) 138/70 156/76 (92) Pulse Ox 100 100 O2 Delivery Nasal Cannula Mechanical Ventilator O2 Flow Rate 2.00 40.00 Blood Pressure Mean: 98 FSBG Bedside Testing Finger Stick Blood Glucose: 85 Progress Progress Note #1: Time: 03:51 Progress Note Patient arrived via EMS after having 2 seizures. EMS administered Versed 2.5 mg easily. She then proceeded have additional seizures in the ER. Ativan 2 mg was administered and Keppra 500 mg IV was initiated. Patient continued to have seizures. Versed 4 mg was administered and repeated with another dose of Versed 4 mg. Patient continued to have seizures. Diazepam 5 mg was then given and patient again had more seizures. Decision was then made to intubate and paralyze for patient's protection. I discussed the case with the patient's who agrees with transfer to [facility] where neurology services are available. Patient had previously seen Dr. Rao at [facility]. We discussed CODE STATUS and he stated patient would not want to have prolonged life support but we should intubate for safe transport and to control seizures. I discussed the case with Dr. Costello, naphthol soaping machine operator at [facility]. He recommended maxing out Ativan at 10 mg. Patient was being maintained on propofol while intubated after initial induction with succinylcholine 50 mg etomidate 20 mg. Propofol was maxed out at 80 mcg/kg/m. Patient continued to have movement. Two doses of Ativan 4 mg each was administered, totaling 10 mg of Ativan. Patient now seems sufficiently sedated for CT scan. An additional Keppra 1000 mg is being infused at Dr. Costello's request. Progress Note #2: Progress Note Patient remained calm after the last dose of Ativan and maxing out propofol. CT of the head showed no acute abnormalities. Patient was transferred via [facility] to [facility]. She did have an episode of bradycardia down to the upper 30s. This gradually resolved without intervention. Diagnostic Imaging Diagonstic Imaging: Xray Plain Films/CT/US/NM/MRI: chest Comments No acute abnormality seen on initial chest x-ray. Report not yet available. Diagonstic Imaging: Xray Plain Films/CT/US/NM/MRI: chest Comments Chest x-ray after intubation showed a right mainstem bronchus ET tube. Diagonstic Imaging: Xray Plain Films/CT/US/NM/MRI: chest Comments Chest x-ray after adjustment of ET tube shows ET tube in good position and OG tube deep in the stomach. Diagonstic Imaging: CT Plain Films/CT/US/NM/MRI: head Comments CT head viewed by me and report reviewed. No acute abnormalities detected. Critical Care Note Critical Care Start Time: 01:49 Stop Time: 04:35 Total Time (minutes) 166 Departure Impression Primary Impression: Intractable seizures Disposition: 02 XFER SHT-TRM HOSP Condition: Stable Transfer Transfer Reason: Exceeds level of care Time Spoke to Accepting Phy: 03:10 Transfer Progress Notes Transfer accepted by Dr. Costello, naphthol soaping machine operator at [facility]. Method of Transfer: EMS Departure-Patient Inst. Referrals: CESILIA GE DO (PCP/Family) Primary Care Physician Copy Copies To 1: CESILIA GE JOSHUA T MD Apr 10, 2020 03:56
--- NOTE | 2020-04-10 04:02 | NUR ---
Report called to ABIOLA Fontenot at this time
--- NOTE | 2020-04-10 04:08 | NUR ---
Pt back from CT at this time.
[2020-04-10 04:36] VITALS: BP 156/76
--- NOTE | 2020-04-10 06:34 | Diagnostic Imaging Report ---
INDICATION: Intubation. TECHNIQUE: Single view chest 3:16 AM. CORRELATION STUDY: 04/10/2020 FINDINGS: Endotracheal tube has been placed. Tip projects over the right mainstem bronchus. This should be retracted approximately 3 to 4 cm. Right-sided Wnmrkd-y-Hfrd catheter tip stable over the SVC. Heart size and mediastinum appear relatively unremarkable given differences in technique. Vasculature, however, is increased. Question bilateral perihilar infiltrates versus edema. IMPRESSION: 1. Endotracheal tube tip projects over the proximal right mainstem bronchus should be retracted approximately 3 to 4 cm. (At time of review, this has been repositioned with follow-up chest radiograph obtained). Dictated by: Dictated on workstation # [id number]
--- NOTE | 2020-04-10 06:39 | Diagnostic Imaging Report ---
INDICATION: Tube placement. TECHNIQUE: Single view chest 3:28 AM. CORRELATION STUDY: 04/10/2020 FINDINGS: Endotracheal tube has been retracted and repositioned. Tip now projects over the trachea below the clavicles and above the soo. A gastric tube has been placed, passed below left hemidiaphragm and edge of the film. This extends at least to the distal stomach. A right subclavian Igkjnz-v-Xsps catheter stable. Heart size is stable. Mediastinum is mildly prominent. Vasculature slightly prominent. Probable small right pleural effusion. Minimal areas of a suggested infiltrate at the bilateral particularly perihilar regions. IMPRESSION: 1. Repositioning endotracheal tube, tip now projected below the clavicles and above the soo. 2. Placement of gastric tube passing at least into the distal stomach. 3. Suggested mild vascular congestion. Bilateral pulmonary infiltrates and/or edema present. Dictated by: Dictated on workstation # [id number]
--- NOTE | 2020-04-10 06:54 | Diagnostic Imaging Report ---
INDICATION: Seizure activity. COMPARISON: 02/07/2020 TECHNIQUE: Single radiograph of the chest dated 04/10/2020. FINDINGS: Right-sided Port-A-Cath is again identified with the distal tip likely overlying the lower aspect of the right jugular vein. The cardiac silhouette is within normal limits in size. No significant pulmonary vascular congestion. The lungs are clear of focal pulmonary opacity. No pleural effusion. No pneumothorax. No acute osseous abnormality. IMPRESSION: No acute cardiopulmonary abnormality with stable right-sided Port-A-Cath. Dictated by: Dictated on workstation # [id number]
--- NOTE | 2020-04-10 08:11 | Diagnostic Imaging Report ---
PROCEDURE: CT head without contrast. TECHNIQUE: Multiple contiguous axial images were obtained through the brain without the use of intravenous contrast. Auto Exposure Controls were utilized during the CT exam to meet ALARA standards for radiation dose reduction. INDICATION: History of seizures, seizure activity. CORRELATION: None FINDINGS: There is no midline shift or mass effect. The ventricles and sulci are unremarkable. No evidence for acute intracranial hemorrhage, abnormal extra-axial fluid collections or cerebral edema is present. The basilar cisterns are unremarkable. Prominent pineal cyst. The bony calvarium is intact. Mucosal thickening through the ethmoid air cells, nasal cavity and opacification the posterior nasopharyngeal cavity. IMPRESSION: Negative appearing noncontrast CT of the head. A preliminary report was provided by [facility]. Dictated by: Dictated on workstation # [id number]
--- NOTE | 2020-04-10 09:07 | NUR ---
Pt contacted this RN requesting to know where pt was transferred to. Samuel sup notified.
== END 2020-04-10 04:35 | disposition short-term general hospital (02) ==
LOC: EDUNIT# 01:47 → ER 01:49
DX: G40.919 Epilepsy, unspecified, intractable, without status epilepticus (principal); I10 Essential (primary) hypertension; J44.9 Chronic obstructive pulmonary disease, unspecified; I25.10 Atherosclerotic heart disease of native coronary artery without angina pectoris; K21.9 Gastro-esophageal reflux disease without esophagitis; F32.9 Major depressive disorder, single episode, unspecified; F43.10 Post-traumatic stress disorder, unspecified; F17.210 Nicotine dependence, cigarettes, uncomplicated; Z85.3 Personal history of malignant neoplasm of breast; Z85.43 Personal history of malignant neoplasm of ovary; Z85.42 Personal history of malignant neoplasm of other parts of uterus; Z88.6 Allergy status to analgesic agent; Z79.02 Long term (current) use of antithrombotics/antiplatelets; Z86.711 Personal history of pulmonary embolism; Z95.5 Presence of coronary angioplasty implant and graft; Z80.3 Family history of malignant neoplasm of breast; Z82.49 Family history of ischemic heart disease and other diseases of the circulatory system
CPT/HCPCS: 70450; 71045; 80053; 80306; 81000; 82962; 83735; 85025; 93041; 99291; G0480; 36415; 80320

== ENCOUNTER → 2021-02-14 | Outpatient (CLI) | payer MEDICAID ==
[~2021-02-14] MED LIST changes: +AMLO-251; +AMLO-251 PO; -AMLO10TA7; -AMLO10TA7 PO; +ESCI-2; +ESCI-2 PO; -ESCI10TA55; -ESCI10TA55 PO; +OXC5T PO; -OXYC5TAB96 PO; -PANT40TA3 PO; +PANT40TA52 PO
[2021-02-14 16:37] LABS: BASOPHILS # (AUTO) 0.1 10^3/uL (0.0-0.1); BASOPHILS % (AUTO) 1 % (0-10); EOSINOPHILS # (AUTO) 0.3 10^3/uL (0.0-0.3); EOSINOPHILS % (AUTO) 3 % (0-10); HEMATOCRIT 35 % (35-52); HEMOGLOBIN 11.6 g/dL (11.5-16.0); LYMPHOCYTES # (AUTO) 2.1 10^3/uL (1.0-4.0); LYMPHOCYTES % (AUTO) 23 % (12-44); MEAN CORPUSCULAR HEMOGLOBIN 31 pg (25-34); MEAN CORPUSCULAR HGB CONC 33 g/dL (32-36); MEAN CORPUSCULAR VOLUME 96 fL (80-99); MEAN PLATELET VOLUME 9.7 fL (9.0-12.2); MONOCYTES # (AUTO) 0.5 10^3/uL (0.0-1.0); MONOCYTES % (AUTO) 6 % (0-12); NEUTROPHILS # (AUTO) 6.2 10^3/uL (1.8-7.8); NEUTROPHILS % (AUTO) 67 % (42-75); PLATELET COUNT 311 10^3/uL (130-400); WHITE BLOOD COUNT 9.3 10^3/uL (4.3-11.0)
[2021-02-14 16:50] LABS: ALBUMIN 3.7 GM/DL (3.2-4.5); CHLORIDE 105 MMOL/L (98-107); POTASSIUM 4.3 MMOL/L (3.6-5.0); SODIUM 139 MMOL/L (135-145)
[2021-02-14 16:51] LABS: CALCIUM 8.3 MG/DL (8.5-10.1)
[2021-02-14 16:52] LABS: GLUCOSE 87 MG/DL (70-105); TOTAL PROTEIN 6.4 GM/DL (6.4-8.2)
[2021-02-14 16:54] LABS: BILIRUBIN,TOTAL 0.1 MG/DL (0.1-1.0); CARBON DIOXIDE 23 MMOL/L (21-32)
[2021-02-14 16:56] LABS: ALKALINE PHOSPHATASE 102 U/L (40-136); CREATININE SERUM 0.82 MG/DL (0.60-1.30); GFR ESTIMATED > 60
[2021-02-14 16:57] LABS: BUN/CREATININE RATIO 12
[2021-02-14 16:59] LABS: ALANINE AMINOTRANSFERASE 7 U/L (0-55); LIPASE 17 U/L (8-78)
== END ==
LOC: LAB 15:53
PROVIDERS: ATTEND Surgery
DX: R10.9 Unspecified abdominal pain (principal); Z87.19 Personal history of other diseases of the digestive system
CPT/HCPCS: 36415; 80053; 83690; 85025

== ENCOUNTER → 2022-01-17 | Outpatient (CLI) | payer MEDICAID ==
[~2022-01-17] MED LIST changes: -CITA40TA11 PO; +CITA40TA13 PO; +CYCL10TA25 PO; -CYCL10TA9 PO; +MIRT-68 PO; -MIRT15TA6 PO; +ONDA-106 PO; -ONDA8TAB15 PO; -SULF1TAB35 PO; +SULF1TAB38 PO
[2022-01-17 11:45] VITALS: BP 120/81
== END ==
LOC: SDC 11:09
PROVIDERS: ATTEND Internal Medicine
DX: C55 Malignant neoplasm of uterus, part unspecified (principal)
CPT/HCPCS: 96523